=== PATIENT | male | born 1960 | race Caucasian/White ===

== ENCOUNTER → 2021-10-02 11:14 | Outpatient (CLI) | payer BC, OTHER, SELFPAY ==
[2021-10-02 12:58] LABS: COVID19 -Nasal RAPID Negative (Negative)
== END ==
PROVIDERS: Referring Provider Family Medicine Sleep Medicine; Visit Provider Family Medicine Sleep Medicine
DX: Z20.822 Contact with and (suspected) exposure to COVID-19 (principal)
CPT/HCPCS: 87635; C9803

== ENCOUNTER 2021-10-05 09:34 | Day surgery (SDC) | payer BC, OTHER, SELFPAY ==
--- NOTE | 2021-10-05 | PATH_ITS ---
[facility] Accession Number: [id number] No. of containers..02 Tissue . 01 Material submitted: . PART A: stomach - ANTRUM BIOPSY PART B: esophagus, E-G Junction - GE JUNCTION BIOPSY . 01 Diagnosis: A. Antrum, Biopsy: Acute erosive gastritis. Negative for Helicobacter organisms by immunohistochemistry. Negative for intestinal metaplasia. Negative for dysplasia or malignancy. . B. Gastroesophageal Junction, Biopsy: Squamocolumnar junctional mucosa with mild chronic inflammation. Negative for specialized intestinal metaplasia on AB/PAS stain. Negative for dysplasia and malignancy. . MRV 10/08/2021 1550 Local . 01 Electronically signed: . Cheikh Bobo MD, PhD, Pathologist NPI- [id number] . 01 Gross description: . Part A: ANTRUM BIOPSY: Received in formalin are 2 fragment(s) of lroenzo, soft tissue measuring 0.3 x 0.2 x 0.1 cm to 0.1 x 0.1 x 0.1 cm submitted entirely in 1 cassette(s) Part B: GE JUNCTION BIOPSY: Received in formalin is 1 fragment(s) of lorenzo, soft tissue measuring 0.2 x 0.1 x 0.1 cm submitted entirely in 1 cassette(s) /CPE 10/06/2021 1038 Local . 01 Microscopic: . A. An immunohistochemical stain was performed to evaluate for Helicobacter organisms and is negative. The control stain showed appropriate reactivity. . B. An AB/PAS stain is performed to evaluate for intestinal metaplasia, and is negative for goblet cells. A control stain shows appropriate reactivity. . * This test was developed and its performance characteristics determined by [facility]. It has not been cleared or approved by the U.S. Food and Drug Administration. The FDA has determined that such clearance or approval is not necessary. This test is used for clinical purposes. It should not be regarded as investigational or for research. . 01 Pathologist provided ICD-10: K29.70, K20.80 . 01 CPT . 629213, 252592, R02026, 625504 Specimen Comment: A courtesy copy of this report has been sent to [facility] Pathology Performed at: 01 [facility] Cyt[facility] [address] [place] [address], [place], [place] [id number] MD Higinio Elizondo MD Phone: [phone]
[2021-10-05 10:03] VITALS: BMI 27.1
[2021-10-05 10:22] VITALS: BP 123/81; PULSE 60; RESP 14; TEMP 36.8; O2SAT 97
[2021-10-05] MEDS: SODIUM CHLORIDE 0.9% 1,000 ML 84 ML IV (10:28)
--- NOTE | 2021-10-05 11:23 | PM.HP.1 ---
History of Present Illness History of Present Illness Date Patient Seen: 10/05/21 Time Patient Seen: 11:23 Chief complaint: SDC Narrative: I reviewed my note from September 15. No changes. Patient History Medical History Cervical fusion syndrome GERD (gastroesophageal reflux disease) HTN (hypertension) Hypercholesteremia Surgical History H/O hernia repair S/P hip replacement Family & Social History Social History: household members spouse Tobacco & Substance use: Smoking Status Former smoker alcohol intake former Substance Use Type marijuana Meds Home Medications and Allergies Home Medications Medication Instructions Recorded Confirmed Type Claritin 10 mg PO PRN PRN 10/02/21 10/05/21 History Crestor 10 mg PO DAILY 10/02/21 10/05/21 History Flexeril 10 mg PO PRN PRN 10/02/21 10/05/21 History Percocet 5 mg PO PRN PRN 10/02/21 10/05/21 History clindamycin HCl 300 mg capsule 300 mg PO PRN PRN 10/02/21 10/05/21 History tamsulosin 0.4 mg capsule 0.4 mg PO BID 10/02/21 10/05/21 History omeprazole 20 mg capsule,delayed 20 mg PO DAILY 10/05/21 10/05/21 History release Allergies Allergy/AdvReac Type Severity Reaction Status Date / Time No Known Drug Allergies Allergy Verified 10/05/21 09:57 Review of Systems Review of Systems ROS: Yes All systems reviewed with the patient and are negative except as otherwise documented Exam Vital Signs (past 8 hours): - 10/05/21 10:22 Temperature 98.2 F Pulse Rate 60 Respiratory Rate 14 Blood Pressure 123/81 Pulse Oximetry 97 Oxygen Delivery Method Room Air Const General: cooperative and comfortable Orientation: alert HENMT Head: normocephalic Ears: external ears normal Nose: external nose normal Face and sinus: normal facial exam Mouth: oral mucosae normal Eyes General: appearance normal, both eyes and all related structures Neck Neck: normal visual inspection Chest Chest: normal inspection of the chest Resp Effort & Inspection: normal respiratory effort Cardio Rate: regular rate GI Inspection: normal to inspection Skin General: no rashes or lesions noted and No jaundice Neuro General: patient alert and moves all extremities Cognition: normal cognition Speech: speech normal Extrem General: no pedal edema Psych Appearance: grossly normal Assessment & Plan Assessment & Plan narrative: 61-year-old male with refractory reflux symptoms. He is also indicated for colon cancer screening. EGD and colonoscopy are pursued today. Time Spent With Patient Critical Care time: I spent a total of [] minutes of critical care time on this patient's care today; this time is exclusive of procedural time.
--- NOTE | 2021-10-05 11:26 | PM.PREOP ---
Pre-operative Note COVID-19 COVID-19 status: Negative Result date/Date tested (Pos, Neg/Pending): 10/02/21 Criteria for continued procedure: Possibility delay results in more complex future surgery or treatment Interval Note History & Physical reviewed/Exam performed by Physician: Yes Changes to H&P: No ASA Class (for procedural sedation): II
--- NOTE | 2021-10-05 12:32 | PM.OP.EC ---
Operative Date/Time/Diagnoses Date of procedure: 10/05/21 Time of procedure: 12:33 Pre-op diagnosis: I reviewed the recent clinic notes from September 15. No changes. Post-op diagnosis: same Procedure & Clinicians Study performed: EGD with biopsies and colonoscopy Same procedure as scheduled: Yes Indications: Refractory GERD and personal history of colon polyps. Surgeon: Jl Colbert Procedure Notes SCOAP/Timeout: Done Procedure in detail: After the risks and benefits were explained, written and verbal informed consent was obtained. The patient was brought into the procedure room and placed into the left lateral decubitus position. Please see nurse solution developer notes for sedation details. The scope was introduced into the mouth through the bite block and advanced under direct visualization to the 2nd portion of the duodenum. The scope was slowly withdrawn carefully examining the mucosa for any defects or lesions. Retroflexed views were accomplished in the stomach. The stomach was decompressed, the scope was then removed from the patient who tolerated the procedure well. The patient was then turned around a digital rectal examination accomplished no significant pathology appreciated the scope was introduced into the rectum and advanced to the cecum as identified by the appendiceal orifice and ileocecal valve. The scope was slowly withdrawn to carefully examine the mucosa for any defects or lesions. Multiple direct views were made through the dentate line for exclusion of pathology the colon was decompressed scope removed the patient tolerated the procedure well. Bowel prep adequate Adult colonoscope Scope withdrawal time: 8 minutes Sedation minutes: 33 Complications: none Impression: 1. Duodenum: This was normal from the bulb through to the 2nd portion. 2. Stomach: Minimal gastropathy was appreciated and biopsies were taken from the antrum for exclusion of H pylori right. Retroflexed views of the LES were otherwise unremarkable. 3. Esophagus: The squamocolumnar junction correlated with the top of the gastric folds for the most part. The Z-line was slightly irregular at approximately 40 cm from the incisors. Because of this mild irregularity I elected to take a couple of biopsies for exclusion of specialized intestinal metaplasia. In the mid and proximal esophagus there were several small plaques white to off white in color. These suggested the possibility of Niecy overgrowth. They were brushed for cytology and submitted for MILY wet prep evaluation. Just proximal to the GE junction there was evidence of well-healed old erosive esophagitis-perhaps LA grade B. 4. Colon: No significant polyps mass lesions or inflammatory features identified throughout. Grade 1-2 internal hemorrhoids. Endoscopic diagnosis 1. Mild gastropathy 2. Irregular Z-line 3. Possible esophageal candidiasis 4. Grade 2 hemorrhoids 5. Otherwise visually unremarkable colonoscopy to cecum Post-procedure Plan for aftercare: 1. Await histopathology 2. Continue anti-reflux therapy. Consider twice a day PPI for now. 3. Follow up on clinical response in GI clinic in the next 6-8 weeks. 4. Await MILY wet prep results. Should Niecy be confirmed, a 14 day course of fluconazole would be appropriate. 5. Repeat colonoscopy 5 years. Disposition: PACU
[2021-10-05 12:46] VITALS: BP 128/78; PULSE 80; RESP 16; TEMP 36.3; O2SAT 99
[2021-10-05 13:10] VITALS: BP 152/87; PULSE 53; RESP 16; TEMP 36.6; O2SAT 98
== END 2021-10-05 13:50 | disposition home or self-care (01) ==
PROVIDERS: PCP Family Medicine; Referring Provider Internal Medicine Gastroenterology; Visit Provider Internal Medicine Gastroenterology
PROC: 0DJ08ZZ Inspection of Upper Intestinal Tract, Via Natural or Artificial Opening Endoscopic (ICD-10-PCS; CPT 43235; principal; 2021-10-05 12:00)
PROC: 0DJD8ZZ Inspection of Lower Intestinal Tract, Via Natural or Artificial Opening Endoscopic (ICD-10-PCS; CPT 45378; 2021-10-05 12:00)
DX: Z12.11 Encounter for screening for malignant neoplasm of colon (principal); Z86.010 Personal history of colon polyps; K21.9 Gastro-esophageal reflux disease without esophagitis; K31.9 Disease of stomach and duodenum, unspecified; K64.0 First degree hemorrhoids
CPT/HCPCS: 43239; 45378; 87220; J2704; J3010

== ENCOUNTER 2024-03-01 16:46 | Observation (INO) | payer MEDICARE, BC, OTHER, SELFPAY ==
[2024-03-01 17:06] VITALS: BP 167/83; PULSE 65; RESP 16; TEMP 37.1; O2SAT 99; BMI 26.2
[2024-03-01 17:55] LABS: Add Manual Diff / Slide Review NO; Basophils Absolute Auto 0 /uL (0-100); Basophils Percent Auto 0.7 % (0-2); Eosinophils Absolute Auto 100 /uL (0-450); Eosinophils Percent Auto 1.9 % (2-4); Hematocrit 36.8 % (41-53); Hemoglobin 12.9 g/dL (13.5-17.5); Lymphocytes Absolute Auto 600 /uL (1100-4500); Lymphocytes Percent Auto 10.7 % (25-40); Mean Corpuscular Hemoglobin 31.4 PG (26-34); Mean Corpuscular Volume 89.8 fL (80-100); Monocytes Absolute Auto 700 /uL (0-900); Monocytes Percent Auto 13.1 % (3-14); Neutrophils Absolute Auto 3900 /uL (1500-7000); Neutrophils Percent Auto 73.6 % (50-75); Platelet Count 215 X10^3/uL (150-400); Red Cell Distribution Width 13.5 % (11.6-14.8); White Blood Cell Count 5.3 X10^3/uL (4.5-11.0)
[2024-03-01 18:02] LABS: INR 0.9 (0.9-1.3); Prothrombin Time 10.6 SECONDS (9.4-12.5)
[2024-03-01] MEDS: SODIUM CHLORIDE 0.9% 1,000 ML 1000 ML IV (18:03)
[2024-03-01 18:05] LABS: PTT Partial Thromboplastin Tim 32 SECONDS (25.1-36.5)
[2024-03-01 18:07] LABS: Alanine Aminotransferase 15 IU/L (<50); Albumin 4.3 g/dL (3.5-5.0); Albumin Globulin Ratio 1.6 (1.0-2.8); Alkaline Phosphatase 46 U/L (38-126); Aspartate Aminotransferase 23 IU/L (17-59); BUN Creatinine Ratio 16.3 (6-22); Bilirubin Total 0.4 mg/dL (0.2-1.3); Blood Urea Nitrogen 15 mg/dL (9-20); Calcium 9.2 mg/dL (8.4-10.2); Carbon Dioxide 26 mmol/L (22-32); Chloride 102 mmol/L (98-107); Estimated Glomerular Filt Rate > 60 mL/min (>60); Globulin 2.7 g/dL (1.7-4.1); Glucose 107 mg/dL (80-110); HEMOLYSIS 20 (0-50); Lipase 91 U/L (23-300); Sodium 135 mmol/L (137-145)
[2024-03-01 18:08] LABS: Lactate (Lactic Acid) 1.6 mmol/L (0.7-2.1)
[2024-03-01 18:24] LABS: Procalcitonin 0.032 ng/mL (<0.5)
--- NOTE | 2024-03-01 21:39 | ED_ITS ---
HPI - Wound/Laceration General Chief Complaint: Wound/Laceration Stated Complaint: rt middle finger swelling, red, painful Time Seen by Provider: 03/01/24 21:39 Source: patient Mode of arrival: Ambulatory Limitations: no limitations History of Present Illness HPI narrative: 64-year-old male with history of prostate cancer with prior prostatectomy and radiation currently under surveillance, diabetes, dyslipidemia and GERD presents with complaint of infection in his finger on his right hand. Patient has been on doxycycline he has had 5 doses of doxycycline and states redness is continuing to spread up his hand and up his arm past his elbow towards his shoulder. He is starting to have some discomfort higher up in his arm as well. States the redness over the finger has gotten deeper and darker. He thought was probably a spider bite but never saw any puncture wounds cats or lacerations. Patient states he has not had issues with skin infections in the past. He denies fevers or chills, no chest pain or shortness of breath no nausea or vomiting. No diarrhea or constipation. He has had some mild headaches. He does have swelling of the 3rd digit, he can flex and extend he states it is uncomfortable but not significantly painful. He has not had any drainage. He does have full range of motion of his arm. Home medications include metformin, naltrexone, famotidine and statin. Patient notes he has had bilateral hip replacement, prostatectomy, cervical fusion, sinus surgery x4 hernia repair. No known drug allergies. No tobacco, alcohol 3 times weekly, no recreational drugs. Dr. Langford is his primary care physician. Related Data Home Medications Medication Instructions Recorded Confirmed doxycycline hyclate 100 mg capsule 100 mg PO BID 03/01/24 03/01/24 famotidine 40 mg tablet 40 mg PO DAILY 03/01/24 03/01/24 metformin 500 mg tablet 500 mg PO BID 03/01/24 03/01/24 naltrexone 4.5 mg capsule 4.5 mg PO BEDTIME 03/01/24 03/01/24 rosuvastatin 10 mg tablet 10 mg PO ONCE PM 03/01/24 03/01/24 tadalafil 10 mg tablet 10 mg PO DAILY 03/01/24 03/01/24 Allergies Allergy/AdvReac Type Severity Reaction Status Date / Time No Known Drug Allergies Allergy Verified 03/01/24 17:10 Review of Systems Review of Systems ROS Unobtainable: All systems reviewed & are unremarkable except as noted in HPI and below Patient History Medical History (Updated 03/01/24 @ 22:30 by Owen Santo MD) Cervical fusion syndrome Hypercholesteremia HTN (hypertension) GERD (gastroesophageal reflux disease) Surgical History H/O hernia repair S/P hip replacement Social History household members: spouse Smoking Status: Former smoker alcohol intake: former Smoking Status: Former smoker Substance Use Type: marijuana Exam Narrative Exam Narrative: GENERAL: Alert and oriented x three, male in mild distress. HEENT: Head normocephalic, atraumatic, EOMI, pupils reactive, face symmetric, moist mucous membranes NECK: Supple, full range of motion CARDIOVASCULAR: Regular rate and rhythm without murmurs, rubs or gallops. RESPIRATORY: Breath sounds equal bilaterally, no wheezes rales or rhonchi. ABDOMEN: Soft, nontender. Normoactive bowel sounds all 4 quadrants. No guarding or rebound, rigidity, no mass : No CVA tenderness EXTREMITIES: Normal range of motion, no clubbing. Patient has a edema of his 3rd digit with fusiform swelling, he can fully flex and extend his finger, patient does have quite a bit of erythema mid shaft of the finger there is no fluctuance or fluid collection appreciated. Fingers indurated with redness tracking over the dorsum of the hand up his arm past his elbow and almost to his shoulder. Patient has full range of motion of his arm otherwise. Patient has 2+ radial pulse. Full range of motion throughout the extremity. Cap refill less than 2 seconds all 5 fingers.. Neurovascularly intact NEUROLOGICAL: Cranial nerves II through XII grossly intact. Moving all extremities SKIN: Warm, dry, no petechiae, no rashes or lesions. Initial Vital Signs Initial Vital Signs: Vital Signs Temperature 98.7 F 03/01/24 17:06 Pulse Rate 65 03/01/24 17:06 Respiratory Rate 16 03/01/24 17:06 Blood Pressure 167/83 H 03/01/24 17:06 Pulse Oximetry 99 03/01/24 17:06 Oxygen Delivery Method Room Air 03/01/24 17:06 Course Orders Ordered: Acetaminophen (Acetaminophen 325 Mg Tablet) 650 mg PO Q6H PRN PRN Reason: Fever/Mild Pain (1-3) Atorvastatin Calcium (Atorvastatin 20 Mg Tablet) 20 mg PO BEDTIME CHRISTA Famotidine (Famotidine 20 Mg Tablet) 40 mg PO DAILY CHRISTA Clindamycin Phosphate (Cleocin) 600 mg in 50 mls @ 50 mls/hr IV Q8H CHRISTA Dextrose (D10w) 100 mls @ 1,200 mls/hr IV PRN PRN PRN Reason: Hypoglycemia Insulin Human Lispro (Insulin Lispro 100 Unit/Ml 3ml Vial) 0 unit SUBCUT ACHS CHRISTA; Protocol Lactobacillus Acidophilus (Lactobacillus Acidophilus Tablet) 1 each PO TIDWM CHRISTA Metformin HCl (Metformin Hcl 500 Mg Tablet) 500 mg PO BIDAC CHRISTA Naloxone HCl (Naloxone 0.4 Mg/Ml Vial) 0.2 mg IV Q2MIN PRN PRN Reason: Opiate Reversal Non-Formulary Medication (Naltrexone) 4.5 mg PO BEDTIME CHRISTA Oxycodone HCl (Oxycodone Ir 5 Mg Tablet) 5 mg PO Q3H PRN PRN Reason: Pain, Moderate (4-6) Oxycodone HCl (Oxycodone Ir 10 Mg Tablet) 10 mg PO Q3H PRN PRN Reason: Pain, Severe (7-10) Discontinued Medications Sodium Chloride (Normal Saline 0.9%) 1,000 mls @ 1,000 mls/hr IV BOLUS ONE Stop: 03/01/24 18:32 Last Infusion: 03/01/24 18:38 Dose: Infused Documented By: Admin: 03/01/24 18:03 Dose: 1,000 mls/hr Documented By: MPO Clindamycin Phosphate (Cleocin) 900 mg in 50 mls @ 50 mls/hr IV NOW ONE Stop: 03/01/24 22:45 Last Admin: 03/01/24 22:11 Dose: 50 mls/hr Documented By: KD Vital Signs Vital signs: Vital Signs - 8 hr 03/01/24 17:06 Temperature 98.7 F Pulse Rate 65 Respiratory Rate 16 Blood Pressure 167/83 H Pulse Oximetry 99 Oxygen Delivery Method Room Air MDM - Wound/Laceration Lab Data 03/01/24 17:43 03/01/24 17:43 Labs: Lab Results 03/01/24 Range/Units 17:43 WBC 5.3 (4.5-11.0) X10^3/uL RBC 4.10 L (4.5-5.9) X10^6/uL Hgb 12.9 L (13.5-17.5) g/dL Hct 36.8 L (41-53) % MCV 89.8 (80-100) fL MCH 31.4 (26-34) PG MCHC 35.0 (30-36) % RDW 13.5 (11.6-14.8) % Plt Count 215 (150-400) X10^3/uL Neut % (Auto) 73.6 (50-75) % Lymph % (Auto) 10.7 L (25-40) % [place] % (Auto) 13.1 (3-14) % Eos % (Auto) 1.9 L (2-4) % Baso % (Auto) 0.7 (0-2) % Neut # (Auto) 3900 (2823-3182) /uL Lymph # (Auto) 600 L (8138-7220) /uL [place] # (Auto) 700 (0-900) /uL Eos # (Auto) 100 (0-450) /uL Baso # (Auto) 0 (0-100) /uL PT 10.6 (9.4-12.5) SECONDS INR 0.9 (0.9-1.3) APTT 32 (25.1-36.5) SECONDS Sodium 135 L (137-145) mmol/L Potassium 4.0 (3.4-5.1) mmol/L Chloride 102 (98-107) mmol/L Carbon Dioxide 26 (22-32) mmol/L BUN 15 (9-20) mg/dL Creatinine 0.92 (0.66-1.25) mg/dL Estimated GFR > 60 (>60) mL/min BUN/Creatinine Ratio 16.3 (6-22) Glucose 107 (80-110) mg/dL Lactate 1.6 (0.7-2.1) mmol/L Calcium 9.2 (8.4-10.2) mg/dL Total Bilirubin 0.4 (0.2-1.3) mg/dL AST 23 (17-59) IU/L ALT 15 (<50) IU/L Alkaline Phosphatase 46 (38-126) U/L Total Protein 7.0 (6.3-8.2) g/dL Albumin 4.3 (3.5-5.0) g/dL Globulin 2.7 (1.7-4.1) g/dL Albumin/Globulin Ratio 1.6 (1.0-2.8) Lipase 91 (23-300) U/L Procalcitonin 0.032 (<0.5) ng/mL MDM Narrative Medical decision making narrative: 64-year-old male who appears to have a skin infection in his right 3rd digit which has progressed up his arm almost to his shoulder despite being on doxycycline for 2-1/2 days, has had 5 total doses. He does not appear to be septic but does appear to be failing outpatient antibiotics. Labs overall reassuring. Patient was covered with dose of clindamycin. Spoke with hospitalist, Dr. Santo, who accepts for inpatient admission. Discharge Plan Departure Patient Disposition: Admitted As Inpatient Clinical Impression: Cellulitis of finger, Cellulitis of arm, right, Failure of outpatient treatment Admit Date/Time: 03/01/24 22:09 Admit Provider: Owen Oakley
[2024-03-01] MEDS: CLINDAMYCIN 900 MG/50 ML PIGGYBACK 50 MG IV (22:11)
[2024-03-01 22:14] VITALS: BP 151/92; PULSE 54; RESP 18; O2SAT 95
--- NOTE | 2024-03-01 22:24 | P.HP_ITS ---
History of Present Illness History of Present Illness Date Patient Seen: 03/01/24 Chief complaint: rt middle finger swelling, red, painful Narrative: From the ED: 64-year-old male with history of prostate cancer with prior prostatectomy and radiation currently under surveillance, diabetes, dyslipidemia and GERD presents with complaint of infection in his finger on his right hand. Patient has been on doxycycline he has had 5 doses of doxycycline and states redness is continuing to spread up his hand and up his arm past his elbow towards his shoulder. He is starting to have some discomfort higher up in his arm as well. States the redness over the finger has gotten deeper and darker. He thought was probably a spider bite but never saw any puncture wounds cats or lacerations. Patient states he has not had issues with skin infections in the past. He denies fevers or chills, no chest pain or shortness of breath no nausea or vomiting. No diarrhea or constipation. He has had some mild headaches. He does have swelling of the 3rd digit, he can flex and extend he states it is uncomfortable but not significantly painful. He has not had any drainage. He does have full range of motion of his arm. He confirmed that he probably got bitten by a spider 3 days ago. He had no fever or chills at home. Placed in observation for an IV antibiotic. [facility] Medical History (Updated 03/01/24 @ 22:30 by Owen Santo MD) Cervical fusion syndrome Hypercholesteremia HTN (hypertension) GERD (gastroesophageal reflux disease) Surgical History H/O hernia repair S/P hip replacement Social History household members: spouse Smoking Status: Former smoker alcohol intake: former Meds Home Medications and Allergies Home Medications Medication Instructions Recorded Confirmed Type doxycycline hyclate 100 mg capsule 100 mg PO BID 03/01/24 03/01/24 History famotidine 40 mg tablet 40 mg PO DAILY 03/01/24 03/01/24 History metformin 500 mg tablet 500 mg PO BID 03/01/24 03/01/24 History naltrexone 4.5 mg capsule 4.5 mg PO BEDTIME 03/01/24 03/01/24 History rosuvastatin 10 mg tablet 10 mg PO ONCE PM 03/01/24 03/01/24 History tadalafil 10 mg tablet 10 mg PO DAILY 03/01/24 03/01/24 History Allergies Allergy/AdvReac Type Severity Reaction Status Date / Time No Known Drug Allergies Allergy Verified 03/01/24 17:10 Review of Systems Constitutional Comments: w/o fever or chills Cardiovascular Comments: w/o chest pain or palpitations Respiratory Comments: w/o cough or shortness of breath Genitourinary Comments: w/o complaints Musculoskeletal Comments: right middle finger swelling and pain spreading over the past 2-3 days upward Exam Vital Signs (past 8 hours): - 03/01/24 17:06 03/01/24 22:14 Temperature 98.7 F Pulse Rate 65 54 L Respiratory Rate 16 18 Blood Pressure 167/83 H 151/92 H Pulse Oximetry 99 95 Oxygen Delivery Method Room Air Room Air Oxygen Delivery Method Room Air Const Other: sitting in bed in no distress Resp Other: normal respiratory effort Cardio Other: RRR Skin Other: erythema art 3rd finger, spreading above the elbow Extrem Other: mild swelling of Rt arm Psych Other: lucid Objective Labs 03/01/24 17:43 03/01/24 17:43 Labs: Laboratory Results - last 24 hr 03/01/24 17:43 WBC 5.3 RBC 4.10 L Hgb 12.9 L Hct 36.8 L MCV 89.8 MCH 31.4 MCHC 35.0 RDW 13.5 Plt Count 215 Neut % (Auto) 73.6 Lymph % (Auto) 10.7 L [place] % (Auto) 13.1 Eos % (Auto) 1.9 L Baso % (Auto) 0.7 Neut # (Auto) 3900 Lymph # (Auto) 600 L [place] # (Auto) 700 Eos # (Auto) 100 Baso # (Auto) 0 PT 10.6 INR 0.9 APTT 32 Sodium 135 L Potassium 4.0 Chloride 102 Carbon Dioxide 26 BUN 15 Creatinine 0.92 Estimated GFR > 60 BUN/Creatinine Ratio 16.3 Glucose 107 Lactate 1.6 Calcium 9.2 Total Bilirubin 0.4 AST 23 ALT 15 Alkaline Phosphatase 46 Total Protein 7.0 Albumin 4.3 Globulin 2.7 Albumin/Globulin Ratio 1.6 Lipase 91 Procalcitonin 0.032 Assessment & Plan Assessment and plan (1) Cellulitis of finger: Status: Acute (2) Cellulitis of arm, right: Status: Acute (3) Failure of outpatient treatment: Status: Acute (4) Diabetes: Status: Acute (5) Hypercholesteremia: Status: Acute (6) GERD (gastroesophageal reflux disease): Status: Acute Assessment & Plan narrative: Right Finger / Arm Cellulitis - w/o evidence of an abscess - could be an insect bite with an anaerobe, could be a Strep considering how fast it got spread - started on Clindamycin in the ED, to continue, added probiotic DM - metformin, SS, CCD GERD - Pepcid HLD - statin DVT prophylaxis - SCDs Time-Based Coding :: [TOTAL MINUTES] spent with patient and on the chart (including review of chart, obtaining history, exam, reviewing outside data, placing orders, documenting exam and treatment plan, and counseling patient) on [DATE]. Quality MIPS - Admit I confirm the patient?s Advance Care Plan is present, Code status is documented, Surrogate decision maker is in patient?s record [If Yes, STOP here]: Yes MIPS - Meds 'Current medications' to include all prescriptions, [id number] products, herbals, cannabis/cannabidiol products, and vitamin/mineral/dietary (nutritional) supplements. I have utilized all available resources to obtain, update, or review the patient?s current medications. [If Yes, STOP here]: Yes
[2024-03-01 22:32] VITALS: BMI 26.2
[2024-03-01 22:35] VITALS: BP 173/108; PULSE 55; RESP 20; TEMP 36.6; O2SAT 98
--- NOTE | 2024-03-02 01:06 | PC.RNWOUND ---
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
[2024-03-02] MEDS: METFORMIN HCL 500 MG TABLET PO (06:04)
[2024-03-02] MEDS: CLINDAMYCIN 600 MG/50 ML PIGGYBACK 50 MG IV ×2 (06:04→12:38)
[2024-03-02 06:23] LABS: Add Manual Diff / Slide Review NO; Basophils Absolute Auto 0 /uL (0-100); Basophils Percent Auto 0.6 % (0-2); Eosinophils Absolute Auto 100 /uL (0-450); Eosinophils Percent Auto 2.6 % (2-4); Hematocrit 38.1 % (41-53); Hemoglobin 13.2 g/dL (13.5-17.5); Lymphocytes Absolute Auto 500 /uL (1100-4500); Lymphocytes Percent Auto 12.3 % (25-40); Mean Corpuscular HGB Conc 34.7 % (30-36); Mean Corpuscular Hemoglobin 31.3 PG (26-34); Mean Corpuscular Volume 90.2 fL (80-100); Monocytes Absolute Auto 600 /uL (0-900); Monocytes Percent Auto 12.7 % (3-14); Neutrophils Absolute Auto 3200 /uL (1500-7000); Neutrophils Percent Auto 71.8 % (50-75); Platelet Count 233 X10^3/uL (150-400); Red Blood Cell Count 4.23 X10^6/uL (4.5-5.9); Red Cell Distribution Width 13.6 % (11.6-14.8); White Blood Cell Count 4.5 X10^3/uL (4.5-11.0)
[2024-03-02 06:36] LABS: BUN Creatinine Ratio 12.9 (6-22); Blood Urea Nitrogen 11 mg/dL (9-20); Calcium 9.2 mg/dL (8.4-10.2); Carbon Dioxide 28 mmol/L (22-32); Chloride 105 mmol/L (98-107); Estimated Glomerular Filt Rate > 60 mL/min (>60); Glucose 92 mg/dL (80-110); HEMOLYSIS < 15 (0-50); Potassium 3.8 mmol/L (3.4-5.1); Sodium 136 mmol/L (137-145)
--- NOTE | 2024-03-02 06:42 | PC.NURSE ---
manager health Patients states he is not a diabetic, but dose take metformin(BID) due to [employer] recommendation for benefits with cancer treatment. Patient refuses to have any insulin or blood sugar checks, and would like to have a general diet ordered.
[2024-03-02] MEDS: LACTOBACILLUS ACIDOPHILUS TABLET 1 EACH PO ×2 (09:47→12:38)
[2024-03-02] MEDS: FAMOTIDINE 20 MG TABLET 40 MG PO (09:47)
--- NOTE | 2024-03-02 10:34 | CM.DANOTE ---
Initial DCP Assessment Note Pt is a 64 yo male, resident of [place], arrives with swollen, red finger, admitted for management of finger infection. PCP: Domi Sloan Payer: [facility] Reviewed chart, met with patient to introduce self and role. Patient lives independently with spouse. Patient reports being a cancer survivor and that he has low immunity. Patient receives Vit C infusions at home which [facility] helps to manage. Patient denies needs from this CM team currently, states appreciation for the visit. No barriers identified at this time to patient's safe discharge home w/family to assist; close outpatient f/u recommended. CM team will plan to follow clinical course closely in case any DC needs or concerns arise. OZZIE Zacarias Discharge Planning/Care Management CM Discharge Assessment Start: 03/02/24 09:30 Freq: Status: Active Protocol: Document 03/02/24 09:30 STEPHEN (Rec: 03/02/24 10:34 STEPHEN [id number]) Discharge Planning Assessment Assigned Finance Mgr OZZIE Le DPOA/Assigned Designee Name Jessica Palmer, spouse Contact Information [phone] Advance Directives? Yes Advance Directives on File No History Provided By Patient,Medical Record Prior Living Arrangements House Household Members spouse Type of transporation used prior to Drives own vehicle admit Independent with ADL's Yes Is patient alert and oriented? Yes Barriers to Discharge No Discharge Plan Home Transportation Arrangement Spouse Referrals Initiated None needed
--- NOTE | 2024-03-02 12:02 | P.DS_ITS ---
History of Present Illness History of Present Illness Date Patient Seen: 03/02/24 Time Patient Seen: 12:02 Chief complaint: rt middle finger swelling, red, painful Narrative: From the ED: 64-year-old male with history of prostate cancer with prior prostatectomy and radiation currently under surveillance, diabetes, dyslipidemia and GERD presents with complaint of infection in his finger on his right hand. Patient has been on doxycycline he has had 5 doses of doxycycline and states redness is continuing to spread up his hand and up his arm past his elbow towards his shoulder. He is starting to have some discomfort higher up in his arm as well. States the redness over the finger has gotten deeper and darker. He thought was probably a spider bite but never saw any puncture wounds cats or lacerations. Patient states he has not had issues with skin infections in the past. He denies fevers or chills, no chest pain or shortness of breath no nausea or vomiting. No diarrhea or constipation. He has had some mild headaches. He does have swelling of the 3rd digit, he can flex and extend he states it is uncomfortable but not significantly painful. He has not had any drainage. He does have full range of motion of his arm. He confirmed that he probably got bitten by a spider 3 days ago. He had no fever or chills at home. Placed in observation for an IV antibiotic. Discharge Providers Provider Date of admission: 03/01/24 22:09 Discharge Date: 03/02/24 Primary care physician: Domi Sloan MD Discharge provider: Néstor Valadez DO Summary Hospital Course Discharge Diagnosis: Right Finger / Arm Cellulitis GERD HLD Hospital Course: This is a 64 year old male admitted with worsening R finger cellulitis that had streaked up his right arm on outpatient antibiotic therapies. His antibiotics were changed to clindamycin. The following day, his R arm erythema and warmth had resolved, now only having a small amount on his R 3rd finger. He wished to go home after discussion given his marked improvement and stable vitals along with unremarkable lab evaluation. He was discharged home with another 7 days of clindamycin, advised he can stop 2 days after the swelling resolves in his finger. Time Spent with Patient Time spent: Less than 30 minutes Exam Vital Signs (past 8 hours): Oxygen Delivery Method Room Air Oxygen Flow Rate 0 Narrative Exam Narrative: Gen: No acute distress, comfortable Ext: R arm, no erythema or warmth. Small area of erythema approx 1-2 cm on the distal portion of his R 3rd digit, much improved, no induration or purulence, not over the area of the joint. Objective Labs 03/02/24 05:31 03/02/24 05:31 Labs: Laboratory Results - last 24 hr 03/01/24 03/02/24 17:43 05:31 WBC 5.3 4.5 RBC 4.10 L 4.23 L Hgb 12.9 L 13.2 L Hct 36.8 L 38.1 L MCV 89.8 90.2 MCH 31.4 31.3 MCHC 35.0 34.7 RDW 13.5 13.6 Plt Count 215 233 Neut % (Auto) 73.6 71.8 Lymph % (Auto) 10.7 L 12.3 L Greer % (Auto) 13.1 12.7 Eos % (Auto) 1.9 L 2.6 Baso % (Auto) 0.7 0.6 Neut # (Auto) 3900 3200 Lymph # (Auto) 600 L 500 L [place] # (Auto) 700 600 Eos # (Auto) 100 100 Baso # (Auto) 0 0 PT 10.6 INR 0.9 APTT 32 Sodium 135 L 136 L Potassium 4.0 3.8 Chloride 102 105 Carbon Dioxide 26 28 BUN 15 11 Creatinine 0.92 0.85 Estimated GFR > 60 > 60 BUN/Creatinine Ratio 16.3 12.9 Glucose 107 92 Lactate 1.6 Calcium 9.2 9.2 Total Bilirubin 0.4 AST 23 ALT 15 Alkaline Phosphatase 46 Total Protein 7.0 Albumin 4.3 Globulin 2.7 Albumin/Globulin Ratio 1.6 Lipase 91 Procalcitonin 0.032 [facility] Medical History (Updated 03/01/24 @ 22:30 by Owen Santo MD) Cervical fusion syndrome Hypercholesteremia HTN (hypertension) GERD (gastroesophageal reflux disease) Surgical History H/O hernia repair S/P hip replacement Social History household members: spouse Smoking Status: Former smoker alcohol intake: former Discharge Plan Discharge Plan Patient Disposition: Home Provider Discharge Comment: You were admitted to the hospital with worsening cellulitis, improved with antibiotic change. Continue antibiotics for a total of 1 week, though this may be able to be stopped early as antibiotic can be stopped 2 days after complete symptom resolution. Discharge orders & Medications Prescriptions: New clindamycin HCl 300 mg capsule 300 mg PO Q6H 7 Days Qty: 28 0RF Continued metformin 500 mg tablet 500 mg PO BID famotidine 40 mg tablet 40 mg PO DAILY rosuvastatin 10 mg tablet 10 mg PO ONCE PM tadalafil 10 mg tablet 10 mg PO DAILY naltrexone 4.5 mg Capsule 4.5 mg PO BEDTIME Discontinued doxycycline hyclate 100 mg capsule 100 mg PO BID Follow up/Referrals: Domi Sloan MD [Primary Care Provider] - Diet/Activity/Treatments Diet: Diet as Tolerated and Regular Activity: As tolerated, no restrictions Visit Report/Discharge Packet Stand Alone Forms: Patient Portal/API, Stroke Signs & Symptoms Discharge Data Primary Care Provider: Domi Sloan Attending Provider: Owen Oakley Admit Date/Time: 03/01/24 22:09 Quality VTE Deep Vein Thrombosis/Pulmonary Embolism Present on Admission: No
[2024-03-02 13:49] VITALS: BP 142/88; PULSE 64; RESP 17; TEMP 36.8; O2SAT 96
--- NOTE | 2024-03-02 15:42 | PC.NURSE ---
Patient is A&OX4, VSS, Afebrile on RA. He denies pain in RUE. +1 edema surrounding UE expanded area. He tolerates medications well. MD at bedside clears him for discharge home today with on clindamycin. He verbalizes agreement and understanding of plan. He receives last dose of IV antibiotic today after lunch and is discharged home. RN escorts patient to ED entrance to await for discharge home with all of his personal belonings at approximately 1400 pm.
== END 2024-03-02 14:00 | disposition home or self-care (01) ==
LOC: ED 22:10 → AC 03-02 07:30
PROVIDERS: Emergency Medicine; Admitting Provider Internal Medicine; Emergency Provider Emergency Medicine; PCP Family Medicine; Referring Provider Emergency Medicine; Visit Provider Internal Medicine
DX: L03.113 Cellulitis of right upper limb (principal); E11.9 Type 2 diabetes mellitus without complications; E78.00 Pure hypercholesterolemia, unspecified; K21.9 Gastro-esophageal reflux disease without esophagitis; Z79.84 Long term (current) use of oral hypoglycemic drugs
CPT/HCPCS: 36415; 80048; 80053; 83605; 83690; 84145; 85025; 85610; 85730; 87040; 96361; 96365; 96366; 99284; G0378; A9270

== ENCOUNTER 2024-07-22 02:14 | Emergency (ER) | payer MEDICARE, BC, OTHER, SELFPAY ==
[2024-07-22] VITALS (32 sets, daily range): BP systolic 104–140; BP diastolic 63–112; PULSE 59–137; RESP 10–24; TEMP 36.4; O2SAT 93–98
--- NOTE | 2024-07-22 02:20 | DI.RAD.S_ITS ---
PROCEDURE: XR CHEST 1V INDICATIONS: New onset AFib TECHNIQUE: One view of the chest was acquired. COMPARISON: [facility], CR, XR CHEST 2 VIEWS, 07/10/2024, 13:19. FINDINGS: Surgical changes and devices: None. Lungs and pleura: Lungs are clear. No pleural effusions or pneumothorax. Mediastinum: Mediastinal contours appear normal. Heart size is normal. Bones and chest wall: No suspicious bony lesions. Overlying soft tissues appear unremarkable. IMPRESSION: No acute cardiothoracic process. This report is concordant with the preliminary report. Dictated by: Sawyer Crawford M.D. on 07/22/2024 at 8:09 Approved by: Sawyer Crawford M.D. on 07/22/2024 at 8:10
--- NOTE | 2024-07-22 02:24 | EKG_ITS ---
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
[2024-07-22] MEDS: AMIODARONE 150 MG/100 ML PIGGYBACK 600 MG IV (02:28)
[2024-07-22 02:31] LABS: Add Manual Diff / Slide Review NO; Basophils Absolute Auto 100 /uL (0-100); Basophils Percent Auto 0.9 % (0-2); Eosinophils Absolute Auto 300 /uL (0-450); Eosinophils Percent Auto 4.8 % (2-4); Hematocrit 43.6 % (41-53); Hemoglobin 14.8 g/dL (13.5-17.5); Lymphocytes Absolute Auto 1000 /uL (1100-4500); Lymphocytes Percent Auto 17.8 % (25-40); Mean Corpuscular Hemoglobin 30.7 PG (26-34); Mean Corpuscular Volume 90.4 fL (80-100); Monocytes Absolute Auto 600 /uL (0-900); Neutrophils Absolute Auto 3800 /uL (1500-7000); Neutrophils Percent Auto 65.5 % (50-75); Platelet Count 284 X10^3/uL (150-400); Red Blood Cell Count 4.83 X10^6/uL (4.5-5.9); Red Cell Distribution Width 13.6 % (11.6-14.8); White Blood Cell Count 5.8 X10^3/uL (4.5-11.0)
--- NOTE | 2024-07-22 02:34 | ED.ARRPALP ---
HPI - Arrhythmia/Palpitations General Chief Complaint: Arrhythmia/Palpitations Stated Complaint: irregular heart beat Time Seen by Provider: 07/22/24 02:16 Source: patient Mode of arrival: Wheelchair Limitations: no limitations History of Present Illness HPI narrative: Patient is a 64-year-old male. History of [id number] diabetes and high cholesterol. No history of atrial fibrillation. Went to bed last night feeling normal. Woke up approximately 30 minutes prior to arrival here in the emergency department with feeling like his heart was beating fast, skipping beats. He stated that he was somewhat lightheaded. No chest pain. Had an abnormal sensation in his abdomen. Has never had anything like this in the past. Has not tried anything for symptoms prior to arrival. No lower extremity swelling. Not on anticoagulation. No history of heart disease. No history of CVA. Related Data Home Medications Medication Instructions Recorded Confirmed famotidine 40 mg tablet 40 mg PO DAILY 03/01/24 03/01/24 metformin 500 mg tablet 500 mg PO BID 03/01/24 03/01/24 naltrexone 4.5 mg capsule 4.5 mg PO BEDTIME 03/01/24 03/01/24 rosuvastatin 10 mg tablet 10 mg PO ONCE PM 03/01/24 03/01/24 tadalafil 10 mg tablet 10 mg PO DAILY 03/01/24 03/01/24 oxybutynin chloride 5 mg tablet 5 mg PO 1XD 07/22/24 07/22/24 Previous Rx's Medication Instructions Recorded apixaban 5 mg tablet (Eliquis) 5 mg PO BID 30 days #60 tabs 07/22/24 Allergies Allergy/AdvReac Type Severity Reaction Status Date / Time No Known Drug Allergies Allergy Verified 03/01/24 17:10 Review of Systems Review of Systems ROS Unobtainable: All systems reviewed & are unremarkable except as noted in HPI and below Patient History Medical History Cervical fusion syndrome Hypercholesteremia HTN (hypertension) GERD (gastroesophageal reflux disease) Surgical History H/O hernia repair S/P hip replacement Social History household members: spouse Smoking Status: Former smoker alcohol intake: former Smoking Status: Former smoker alcohol intake frequency: a few times a week Substance Use Type: marijuana Exam Initial Vital Signs Initial Vital Signs: Vital Signs Temperature 97.5 F L 07/22/24 02:20 Pulse Rate 113 H 07/22/24 02:20 Respiratory Rate 16 07/22/24 02:20 Blood Pressure 140/86 07/22/24 02:20 Pulse Oximetry 97 07/22/24 02:20 Oxygen Delivery Method Room Air 07/22/24 02:20 Const General: cooperative, comfortable and No ill appearing HENMT Head: normal to inspection and normocephalic Resp Effort & Inspection: normal respiratory effort Auscultation: clear to auscultation bilaterally Cardio Rate: tachycardic Rhythm: abnormal rhythm GI Inspection: normal to inspection Skin General: no rashes or lesions noted Neuro General: patient alert, patient awake, patient oriented x3 and does not move all extremities Extrem General: No edema Procedures Cardioversion Consent Signed: Yes Indication: Atrial fibrillation Stability: Stable Number of attempts (shocks): 1 Joules used: 120 Cardiac rhythm post-cardioversion: Sinus rhythm Procedural Sedation Consent signed: Yes Time out performed: Yes Indication: cardioversion ASA Class: II Mallampati Airway Classification: Class II Preparation: cardiac cath technologist applied, pulse oximeter, capnometry used, supplemental O2 applied, suction/airway equipment at bedside and IV secured Fentanyl: IV Fentanyl dose (mcg): 12 IV Propofol dose (mg): 50 Intraservice time/total sedation time (min): 10 ED Sedation Level: Moderate (Concious) Patient Tolerated Procedure: No complications Complications: none Course Orders Ordered: ED Orders 07/22/24 02:16 EKG-12 Lead Stat 07/22/24 02:20 XR chest 1V Stat 07/22/24 02:22 Complete Blood Count AUTO DIFF Stat Comprehensive Metabolic Panel Stat Lipase Stat Magnesium Stat PTT Partial Thromboplastin Gregory Stat Prothrombin Time INR Stat Thyroid Stimulating Hormone Stat Troponin & CK Cardiac Panel Stat 07/22/24 03:47 EKG-12 Lead Stat 07/22/24 03:48 EKG-12 Lead Stat Discontinued Medications Apixaban (Apixaban 5 Mg Tablet) 5 mg PO NOW ONE Stop: 07/22/24 03:50 Last Admin: 07/22/24 04:06 Dose: 5 mg Documented By: [facility] Fentanyl (Fentanyl 100 Mcg/2 Ml Inj) 12.5 mcg IV NOW ONE Stop: 07/22/24 03:26 Last Admin: 07/22/24 03:43 Dose: 12.5 mcg Documented By: BENY Amiodarone HCl/Dextrose (Nexterone) 150 mg in 100 mls @ 600 mls/hr IV NOW ONE; Protocol Stop: 07/22/24 02:31 Last Infusion: 07/22/24 02:45 Dose: Infused Documented By: Admin: 07/22/24 02:28 Dose: 600 mls/hr Documented By: BENY Propofol (Propofol 200 Mg/20 Ml Vial) 100 mg IV NOW ONE Stop: 07/22/24 03:26 Last Admin: 07/22/24 03:43 Dose: 50 mg Documented By: BENY Vital Signs Vital signs: Vital Signs - 8 hr 07/22/24 02:20 07/22/24 02:30 07/22/24 02:30 Temperature 97.5 F L Pulse Rate 113 H 137 H Respiratory Rate 16 15 Blood Pressure 140/86 132/72 Pulse Oximetry 97 98 Oxygen Delivery Method Room Air Oxygen Flow Rate 07/22/24 02:35 07/22/24 02:35 07/22/24 02:40 Temperature Pulse Rate 110 H 124 H Respiratory Rate 10 L 14 Blood Pressure 114/72 Pulse Oximetry 96 93 Oxygen Delivery Method Room Air Oxygen Flow Rate 07/22/24 02:45 07/22/24 02:50 07/22/24 02:55 Temperature Pulse Rate 105 H 94 H 131 H Respiratory Rate 20 17 15 Blood Pressure Pulse Oximetry 96 95 96 Oxygen Delivery Method Oxygen Flow Rate 07/22/24 03:00 07/22/24 03:05 07/22/24 03:09 Temperature Pulse Rate 93 H 103 H 105 H Respiratory Rate 11 L 15 14 Blood Pressure Pulse Oximetry 96 96 95 Oxygen Delivery Method Oxygen Flow Rate 07/22/24 03:09 07/22/24 03:10 07/22/24 03:10 Temperature Pulse Rate 96 H 95 H Respiratory Rate 12 23 Blood Pressure 122/64 122/64 Pulse Oximetry 95 97 Oxygen Delivery Method Room Air Oxygen Flow Rate 07/22/24 03:15 07/22/24 03:15 07/22/24 03:20 Temperature Pulse Rate 90 105 H Respiratory Rate 24 13 Blood Pressure 104/63 Pulse Oximetry 96 97 Oxygen Delivery Method Oxygen Flow Rate 07/22/24 03:25 07/22/24 03:30 07/22/24 03:30 Temperature Pulse Rate 106 H 123 H Respiratory Rate 13 15 Blood Pressure 108/70 Pulse Oximetry 97 96 Oxygen Delivery Method Oxygen Flow Rate 07/22/24 03:32 07/22/24 03:32 07/22/24 03:34 Temperature Pulse Rate 112 H 66 Respiratory Rate 11 L 16 Blood Pressure 115/86 115/72 Pulse Oximetry 96 95 Oxygen Delivery Method Oxygen Flow Rate 07/22/24 03:35 07/22/24 03:35 07/22/24 03:40 Temperature Pulse Rate 104 H 108 H Respiratory Rate 11 L Blood Pressure 114/76 Pulse Oximetry 96 97 Oxygen Delivery Method Oxygen Flow Rate 07/22/24 03:40 07/22/24 03:45 07/22/24 03:46 Temperature Pulse Rate 126 H 113 H Respiratory Rate 11 L 12 Blood Pressure 111/79 Pulse Oximetry 98 95 Oxygen Delivery Method Oxygen Flow Rate 07/22/24 03:46 07/22/24 03:50 07/22/24 03:50 Temperature Pulse Rate 69 Respiratory Rate 12 Blood Pressure 137/112 H 116/71 Pulse Oximetry 95 Oxygen Delivery Method Nasal Cannula Oxygen Flow Rate 2 07/22/24 03:55 07/22/24 03:55 07/22/24 04:00 Temperature Pulse Rate 68 66 Respiratory Rate 11 L 21 Blood Pressure 115/72 Pulse Oximetry 95 95 Oxygen Delivery Method Room Air Oxygen Flow Rate 07/22/24 04:00 07/22/24 04:05 07/22/24 04:05 Temperature Pulse Rate 64 Respiratory Rate 19 Blood Pressure 108/73 115/77 Pulse Oximetry 95 Oxygen Delivery Method Oxygen Flow Rate 07/22/24 04:10 Temperature Pulse Rate 65 Respiratory Rate 22 Blood Pressure Pulse Oximetry 96 Oxygen Delivery Method Room Air Oxygen Flow Rate MDM - Arrhythmia/Palpitations Lab Data Attestation: I reviewed the patient's lab results. 07/22/24 02:22 07/22/24 02:22 Labs: Lab Results 07/22/24 Range/Units 02:22 WBC 5.8 (4.5-11.0) X10^3/uL RBC 4.83 (4.5-5.9) X10^6/uL Hgb 14.8 (13.5-17.5) g/dL Hct 43.6 (41-53) % MCV 90.4 (80-100) fL MCH 30.7 (26-34) PG MCHC 34.0 (30-36) % RDW 13.6 (11.6-14.8) % Plt Count 284 (150-400) X10^3/uL Neut % (Auto) 65.5 (50-75) % Lymph % (Auto) 17.8 L (25-40) % [place] % (Auto) 11.0 (3-14) % Eos % (Auto) 4.8 H (2-4) % Baso % (Auto) 0.9 (0-2) % Neut # (Auto) 3800 (6607-5281) /uL Lymph # (Auto) 1000 L (2213-7881) /uL [place] # (Auto) 600 (0-900) /uL Eos # (Auto) 300 (0-450) /uL Baso # (Auto) 100 (0-100) /uL PT 9.8 (9.4-12.5) SECONDS INR 0.9 (0.9-1.3) APTT 33 (25.1-36.5) SECONDS Sodium 136 L (137-145) mmol/L Potassium 3.6 (3.4-5.1) mmol/L Chloride 101 (98-107) mmol/L Carbon Dioxide 28 (22-32) mmol/L BUN 15 (9-20) mg/dL Creatinine 0.96 (0.66-1.25) mg/dL Estimated GFR > 60 (>60) mL/min BUN/Creatinine Ratio 15.6 (6-22) Glucose 115 H (80-110) mg/dL Calcium 9.6 (8.4-10.2) mg/dL Magnesium 1.8 (1.6-2.3) mg/dL Total Bilirubin 0.4 (0.2-1.3) mg/dL AST 26 (17-59) IU/L ALT 18 (<50) IU/L Alkaline Phosphatase 49 (38-126) U/L Total Creatine Kinase 79 (55-170) U/L Troponin I < 0.012 (0.01-0.034) ng/mL Total Protein 7.0 (6.3-8.2) g/dL Albumin 4.3 (3.5-5.0) g/dL Globulin 2.7 (1.7-4.1) g/dL Albumin/Globulin Ratio 1.6 (1.0-2.8) Lipase 73 (23-300) U/L Imaging Data Chest x-ray: Radiologist's Impresson: No acute cardiopulmonary abnormalities identified ECG Data Attestation: I personally reviewed and interpreted this ECG as follows: Interpretation: Presentation EKG Atrial fibrillation Ventricular rate 94 Normal axis Normal QRS Normal QTC No ST T wave changes Post cardioversion EKG Sinus rhythm Ventricular rate is 70 Normal axis Normal QRS Normal QTC No ST T wave changes MDM Narrative Medical decision making narrative: Patient had an onset of symptoms less than 2 hours prior to arrival here in the emergency department. He was not on anticoagulation. Is in atrial fibrillation. No history of atrial fibrillation. Initially attempted amiodarone without success in conversion however his heart rate now is much better. Had a discussion with him regarding the risks and benefits of cardioversion. We discussed atrial fibrillation. After this discussion we opted for the cardioversion. He was sedated and cardioversion with success. Will place the patient on Eliquis for the next 30 days. Troponin is negative. Chest x-ray is unremarkable. Labs unremarkable. Recommended the patient contact his primary care doctor for follow-up to discuss further evaluation and potential referral to see Cardiology. He was given return precautions and follow-up instructions. He expressed understanding and agreement with plan. Discharge Plan Departure Patient Disposition: Home Clinical Impression: Atrial fibrillation Instructions: DI for Cardioversion, DI for Atrial Fibrillation Activity Restrictions/Additional Instructions: Continue to take all of your medications as directed. A new medication for a medicine called Eliquis/apixaban was sent to [facility]. Please start taking this as directed. I recommend that you look into the ?Eliquis co-pay card? to help offset the cost of this medication which potentially can be expensive. I recommend that you contact your primary care doctor for a follow-up. Return to the emergency department for new or worsening symptoms. Prescriptions: New Eliquis 5 mg tablet 5 mg PO BID 30 Days Qty: 60 0RF No Action metformin 500 mg tablet 500 mg PO BID famotidine 40 mg tablet 40 mg PO DAILY rosuvastatin 10 mg tablet 10 mg PO ONCE PM tadalafil 10 mg tablet 10 mg PO DAILY naltrexone 4.5 mg Capsule 4.5 mg PO BEDTIME oxybutynin chloride 5 mg Tablet 5 mg PO 1XD Referrals: Domi Sloan MD [Primary Care Provider] - Stand Alone Forms: Patient Portal/API/Survey
[2024-07-22 02:41] LABS: Alanine Aminotransferase 18 IU/L (<50); Albumin 4.3 g/dL (3.5-5.0); Albumin Globulin Ratio 1.6 (1.0-2.8); Alkaline Phosphatase 49 U/L (38-126); Aspartate Aminotransferase 26 IU/L (17-59); BUN Creatinine Ratio 15.6 (6-22); Bilirubin Total 0.4 mg/dL (0.2-1.3); Blood Urea Nitrogen 15 mg/dL (9-20); Calcium 9.6 mg/dL (8.4-10.2); Carbon Dioxide 28 mmol/L (22-32); Chloride 101 mmol/L (98-107); Creatine Kinase 79 U/L (55-170); Estimated Glomerular Filt Rate > 60 mL/min (>60); Globulin 2.7 g/dL (1.7-4.1); Glucose 115 mg/dL (80-110); HEMOLYSIS < 15 (0-50); Lipase 73 U/L (23-300); Magnesium 1.8 mg/dL (1.6-2.3); Potassium 3.6 mmol/L (3.4-5.1); Sodium 136 mmol/L (137-145)
[2024-07-22 02:53] LABS: Troponin I < 0.012 ng/mL (0.01-0.034)
[2024-07-22 03:25] LABS: INR 0.9 (0.9-1.3); Prothrombin Time 9.8 SECONDS (9.4-12.5)
[2024-07-22 03:28] LABS: PTT Partial Thromboplastin Tim 33 SECONDS (25.1-36.5)
[2024-07-22 03:42] LABS: Thyroid Stimulating Hormone 3.43 uIU/mL (0.47-4.68)
[2024-07-22] MEDS: fentaNYL 100 MCG/2 ML INJ 12.5 MCG IV (03:43)
[2024-07-22] MEDS: propofoL 200 MG/20 ML VIAL 100 MG IV (03:43)
--- NOTE | 2024-07-22 03:47 | EKG_ITS ---
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
--- NOTE | 2024-07-22 03:55 | PC.NURSE ---
Cardioversion completed by Dr Hawkins with Tati RN, Luz RN, and Ashish RT at bedside. remained at bedside. Pt maintained airway with coaching and mechanical adjustment by Dr. Hawkins. 02 above 90% during prodedure on 2 L via NC. improved to 96% with movement of airway and coaching. Vital signs remained stable. Pt arroused from sedation and in good spirits. Reports doing well, denies pain. HR 68 NSR, verified with EKG.
[2024-07-22] MEDS: APIXABAN 5 MG TABLET PO (04:06)
== END 2024-07-22 04:50 | disposition home or self-care (01) ==
PROVIDERS: Emergency Provider Emergency Medicine; PCP Family Medicine
DX: I48.91 Unspecified atrial fibrillation (principal); I45.10 Unspecified right bundle-branch block
CPT/HCPCS: 36415; 71045; 80053; 82550; 83690; 83735; 84443; 84484; 85025; 85610; 85730; 92960; 93005; 96365; 99152; 99285; 99291; 99292; J0282; J2704; J3010

== ENCOUNTER 2024-07-28 16:05 | Emergency (ER) | payer MEDICARE, BC, OTHER, SELFPAY ==
[2024-07-28] VITALS (9 sets, daily range): BP systolic 143–181; BP diastolic 87–99; PULSE 50–94; RESP 14–28; TEMP 36.8; O2SAT 94–99; BMI 27.6
--- NOTE | 2024-07-28 16:17 | ED.GENADULT ---
HPI - General Adult General Chief complaint: Chest Pain Stated complaint: tightness in chest, fatigued Time Seen by Provider: 07/28/24 16:16 History of Present Illness HPI narrative: 64-year-old gentleman with a history of diabetes, hyperlipidemia, recently seen for new AFib cardioverted now on apixaban, currently on antibiotics for a small facial abscess, history of prostate cancer with last radiation almost a year ago comes in complaining of chest pain/heaviness for the last 24 hours, feels that his belly is uncomfortable with increasing gas today, increasing fatigue for the last 3 weeks notes that he has been on antibiotics 3 times since February with 1 hospital admission recently for a finger cellulitis. Generally he just feels unwell and comes in for further evaluation Related Data Home Medications Medication Instructions Recorded Confirmed metformin 500 mg tablet 500 mg PO BID 03/01/24 08/13/24 naltrexone 4.5 mg capsule 4.5 mg PO BEDTIME 03/01/24 08/13/24 rosuvastatin 10 mg tablet 10 mg PO ONCE PM 03/01/24 08/13/24 Previous Rx's Medication Instructions Recorded dabigatran etexilate 150 mg capsule 150 mg PO BID #60 caps 08/13/24 famotidine 40 mg tablet 40 mg PO BID #60 tabs 08/13/24 Allergies Allergy/AdvReac Type Severity Reaction Status Date / Time No Known Drug Allergies Allergy Verified 03/01/24 17:10 Review of Systems Review of Systems Narrative: Pertinent positive and negative findings as per HPI Patient History Medical History Atrial fibrillation Diabetes Cervical fusion syndrome Hypercholesteremia HTN (hypertension) GERD (gastroesophageal reflux disease) Surgical History H/O hernia repair S/P hip replacement Social History household members: spouse Smoking Status: Former smoker alcohol intake: former Smoking Status: Former smoker alcohol intake frequency: a few times a week Exam Initial Vital Signs Initial Vital Signs: Vital Signs Pulse Rate 60 07/28/24 16:11 Respiratory Rate 23 07/28/24 16:11 Pulse Oximetry 95 07/28/24 16:11 General: Fatigued appearing, flat affect nontoxic HEENT: Moist mucous membranes, normal sclera with reactive pupils, Neck: No JVD, supple Respiratory: Lungs are clear to auscultation, no wheezing no rales no rhonchi. Full and symmetrical air movement Cardiac: Regular rate and rhythm no murmurs , PMI is not displaced Abdomen: Soft, nontender, good bowel tones, no flank pain Skin: Warm and dry, no rashes, no diaphoresis Neurologic: Grossly neurologically intact with no obvious asymmetries or abnormalities Extremities: No trauma, well perfused, no edema Psych: Cooperative, appropriate insight and affect Course Orders Ordered: ED Orders 07/28/24 16:15 Complete Blood Count AUTO DIFF Stat Comprehensive Metabolic Panel Stat Lipase Stat Magnesium Stat NT-proBNP (BNP-Adult 18+) Stat PTT Partial Thromboplastin Gregory Stat Prothrombin Time INR Stat Troponin & CK Cardiac Panel Stat 07/28/24 16:20 XR chest 1V Stat EKG-12 Lead Stat 07/28/24 16:50 CT chest w con Stat Vital Signs Vital signs: Vital Signs - 8 hr 07/28/24 16:11 07/28/24 16:12 07/28/24 16:12 Temperature Pulse Rate 60 61 Respiratory Rate 23 28 H Blood Pressure 181/99 H Pulse Oximetry 95 97 Oxygen Delivery Method 07/28/24 16:21 07/28/24 16:30 07/28/24 16:30 Temperature 98.2 F Pulse Rate 53 L 58 L Respiratory Rate 20 14 Blood Pressure 181/91 H 164/90 H Pulse Oximetry 99 98 Oxygen Delivery Method Room Air Medical Decision Making Lab Data 07/28/24 16:15 07/28/24 16:15 Labs: Lab Results 07/28/24 Range/Units 16:15 WBC 5.5 (4.5-11.0) X10^3/uL RBC 4.55 (4.5-5.9) X10^6/uL Hgb 14.2 (13.5-17.5) g/dL Hct 41.5 (41-53) % MCV 91.3 (80-100) fL MCH 31.3 (26-34) PG MCHC 34.3 (30-36) % RDW 13.4 (11.6-14.8) % Plt Count 242 (150-400) X10^3/uL Neut % (Auto) 68.9 (50-75) % Lymph % (Auto) 12.0 L (25-40) % Esmeralda % (Auto) 15.0 H (3-14) % Eos % (Auto) 3.5 (2-4) % Baso % (Auto) 0.6 (0-2) % Neut # (Auto) 3800 (3128-8534) /uL Lymph # (Auto) 700 L (4031-3942) /uL Esmeralda # (Auto) 800 (0-900) /uL Eos # (Auto) 200 (0-450) /uL Baso # (Auto) 0 (0-100) /uL PT 12.2 (9.4-12.5) SECONDS INR 1.1 (0.9-1.3) APTT 38 H (25.1-36.5) SECONDS Sodium 130 L (137-145) mmol/L Potassium 3.7 (3.4-5.1) mmol/L Chloride 98 (98-107) mmol/L Carbon Dioxide 29 (22-32) mmol/L BUN 14 (9-20) mg/dL Creatinine 1.22 (0.66-1.25) mg/dL Estimated GFR > 60 (>60) mL/min BUN/Creatinine Ratio 11.5 (6-22) Glucose 91 (80-110) mg/dL Calcium 9.6 (8.4-10.2) mg/dL Magnesium 2.0 (1.6-2.3) mg/dL Total Bilirubin 0.5 (0.2-1.3) mg/dL AST 26 (17-59) IU/L ALT 15 (<50) IU/L Alkaline Phosphatase 43 (38-126) U/L Total Creatine Kinase 78 (55-170) U/L Troponin I < 0.012 (0.01-0.034) ng/mL NT-Pro-B Natriuret Pep 142 H (<125) pg/mL Total Protein 7.5 (6.3-8.2) g/dL Albumin 4.4 (3.5-5.0) g/dL Globulin 3.1 (1.7-4.1) g/dL Albumin/Globulin Ratio 1.4 (1.0-2.8) Lipase 66 (23-300) U/L MDM Narrative Medical decision making narrative: CC: Chest tightness for 24 hours, increasing fatigue for 3 weeks and dyspnea even at rest Complicating co-morbidities: Paroxysmal atrial fibrillation post electrical cardioversion and newly started Eliquis last week, currently on antibiotics for facial infection hospital admission this year for cellulitis of the finger, antibiotics recently for walking pneumonia, recently completed prostate cancer radiation course earlier this year Data collected from: patient, Medical records reviewed: July 22 ER visit with atrial fibrillation reviewed, March 02 discharge summary after arm cellulitis reviewed Differential considered: Acute coronary syndrome, pulmonary embolism, cardiomyopathy post viral, depression Exam documented above, pertinent findings include: Patient's exam is flat, he is on engaged, clearly fatigue, physical exam is relatively benign Lab Test results independently reviewed as above. Pertinent findings: CBC is reassuring Chemistries are notable for sodium 130, creatinine slightly increased from 0.96-1.2. Remainder of chemistries are equally reassuring Troponin today is undetectable ProBNP is minimally elevated at 140 TSH on July 22 is appropriate at 3.4 Independently reviewed EKG: Sinus bradycardia at a rate of 59, no ischemic changes Imaging studies independently reviewed: Chest x-ray has some questionable right-sided perihilar fullness Discussion: 64-year-old gentleman with a medically complicated your complaining of chest pain and heaviness for the last 24 hours and general malaise with increased fatigue or last number of weeks. Workup is actually quite reassuring. He remains in sinus rhythm, no signs of acute coronary disease, congestive heart failure, pulmonary embolism, persistent pneumonia, occult pulmonary mass or additional reason for his dyspnea at rest. In the ER he did have a relative bradycardia, sinus, at rest. As low as 50 with movement was back up to 60s. He is follow up with his rubber compounder on Tuesday. We did broach the possibility of clinical depression as an underlying cause or at least contributor to his fatigue and malaise. He will bring this up with his primary care physician at this point there was no indication for further studies or hospitalization and he is safe to go home Discharge Plan Departure Patient Disposition: Home Clinical Impression: Acute dyspnea, Chest tightness Activity Restrictions/Additional Instructions: Thank you for coming in today Your workup in the ER today was actually very reassuring. Your chest x-ray was normal, I did not see any signs to suggest cardiomyopathy, fluid collecting around her lungs or around your heart, heart attack, recurrent atrial fibrillation, persistent lung infection. Your blood work is reassuring, including a normal thyroid test earlier this week. There was no anemia, no signs of bacterial infection. There was no signs of anemia, congestive heart failure or alternate explanations for your symptoms I do not have a complete explanation for your symptoms today but I also do not think that you have a life-threatening problem that would require hospitalization. Please do keep your rubber compounder appointment next Tuesday. You mentioned that the sinus bradycardia in the 50s that we have been seeing in the emergency department does seem abnormal for you. Please bring that up with a rubber compounder. It would also suggest that you schedule an appointment with your primary care physician. If you find that you are getting worse or develop any new symptoms, please feel free to return to the emergency department for further evaluation. Prescriptions: No Action metformin 500 mg tablet 500 mg PO BID rosuvastatin 10 mg tablet 10 mg PO ONCE PM naltrexone 4.5 mg Capsule 4.5 mg PO BEDTIME dabigatran etexilate 150 mg capsule 150 mg PO BID Qty: 60 2RF famotidine 40 mg tablet 40 mg PO BID Qty: 60 2RF Referrals: Domi Sloan MD [Primary Care Provider] - Stand Alone Forms: Patient Portal/API/Survey
--- NOTE | 2024-07-28 16:20 | DI.RAD.S_ITS ---
PROCEDURE: XR CHEST 1V INDICATIONS: chest pain TECHNIQUE: One view of the chest was acquired. COMPARISON: [facility], CR, XR CHEST 1V, 07/22/2024, 2:17. FINDINGS: Surgical changes and devices: None. Lungs and pleura: Lungs are clear. No pleural effusions or pneumothorax. Mediastinum: Mediastinal contours appear normal. Heart size is normal. Bones and chest wall: No suspicious bony lesions. Overlying soft tissues appear unremarkable. IMPRESSION: No acute cardiopulmonary abnormality is seen. Approved by: Ellis Henriquez M.D. on 07/28/2024 at 16:42
[2024-07-28 16:25] LABS: Add Manual Diff / Slide Review NO; Basophils Absolute Auto 0 /uL (0-100); Basophils Percent Auto 0.6 % (0-2); Eosinophils Absolute Auto 200 /uL (0-450); Eosinophils Percent Auto 3.5 % (2-4); Hematocrit 41.5 % (41-53); Hemoglobin 14.2 g/dL (13.5-17.5); Lymphocytes Absolute Auto 700 /uL (1100-4500); Mean Corpuscular HGB Conc 34.3 % (30-36); Mean Corpuscular Hemoglobin 31.3 PG (26-34); Mean Corpuscular Volume 91.3 fL (80-100); Monocytes Absolute Auto 800 /uL (0-900); Neutrophils Absolute Auto 3800 /uL (1500-7000); Neutrophils Percent Auto 68.9 % (50-75); Platelet Count 242 X10^3/uL (150-400); Red Blood Cell Count 4.55 X10^6/uL (4.5-5.9); Red Cell Distribution Width 13.4 % (11.6-14.8); White Blood Cell Count 5.5 X10^3/uL (4.5-11.0)
[2024-07-28 16:37] LABS: Alanine Aminotransferase 15 IU/L (<50); Albumin 4.4 g/dL (3.5-5.0); Albumin Globulin Ratio 1.4 (1.0-2.8); Alkaline Phosphatase 43 U/L (38-126); Aspartate Aminotransferase 26 IU/L (17-59); BUN Creatinine Ratio 11.5 (6-22); Bilirubin Total 0.5 mg/dL (0.2-1.3); Blood Urea Nitrogen 14 mg/dL (9-20); Calcium 9.6 mg/dL (8.4-10.2); Carbon Dioxide 29 mmol/L (22-32); Chloride 98 mmol/L (98-107); Creatine Kinase 78 U/L (55-170); Estimated Glomerular Filt Rate > 60 mL/min (>60); Globulin 3.1 g/dL (1.7-4.1); Glucose 91 mg/dL (80-110); HEMOLYSIS < 15 (0-50); Lipase 66 U/L (23-300); Potassium 3.7 mmol/L (3.4-5.1); Sodium 130 mmol/L (137-145); Total Protein 7.5 g/dL (6.3-8.2)
[2024-07-28 16:48] LABS: NT-proBNP (BNP-Adult 18+) 142 pg/mL (<125); Troponin I < 0.012 ng/mL (0.01-0.034)
[2024-07-28 16:49] LABS: INR 1.1 (0.9-1.3); Prothrombin Time 12.2 SECONDS (9.4-12.5)
--- NOTE | 2024-07-28 16:50 | DI.CT.S_ITS ---
PROCEDURE: CT CHEST W CON INDICATIONS: persistent dyspnea TECHNIQUE: After the administration of intravenous contrast, 5 mm thick sections acquired from the pulmonary apices to the posterior costophrenic angles. 1 mm axial lung, 5 mm thick coronal and sagittal reformats and 7 mm axial MIP were acquired. For radiation dose reduction, the following was used: automated exposure control, adjustment of mA and/or kV according to patient size. COMPARISON: None. FINDINGS: Cardiovascular and Mediastinum: Heart size is normal. No evidence of thoracic aortic aneurysm. Pulmonary vasculature is unremarkable. No hiatal hernia. Thyroid gland unremarkable. Lungs and Pleural Spaces: The lung hou are clear without nodule, infiltrate or interstitial prominence. Pleural spaces show no effusion or pneumothorax. Lymph Nodes: No mediastinal, hilar or axillary adenopathy. Musculoskeletal: No evidence of rib fracture. Thoracic spine unremarkable. Chest wall and sternum intact. No lytic or blastic lesions. Upper abdomen: Visualized portions of the liver, spleen and kidneys are unremarkable. IMPRESSION: Unremarkable CT of the chest Approved by: Ellis Henriquez M.D. on 07/28/2024 at 18:15
[2024-07-28 16:52] LABS: PTT Partial Thromboplastin Tim 38 SECONDS (25.1-36.5)
== END 2024-07-28 19:29 | disposition home or self-care (01) ==
PROVIDERS: Emergency Medicine; Emergency Provider Student in an Organized Health Care Education/Training Program; PCP Family Medicine
DX: R06.00 Dyspnea, unspecified (principal); R07.89 Other chest pain; Z79.01 Long term (current) use of anticoagulants
CPT/HCPCS: 36415; 71045; 71260; 80053; 82550; 83690; 83735; 83880; 84484; 85025; 85610; 85730; 99284

== ENCOUNTER 2024-08-12 20:27 | Observation (INO) | payer MEDICARE, BC, OTHER, SELFPAY ==
[2024-08-12] VITALS (9 sets, daily range): BP systolic 128–152; BP diastolic 76–88; PULSE 53–61; RESP 13–21; TEMP 37; O2SAT 95–100; BMI 27.2
--- NOTE | 2024-08-12 20:37 | EKG_ITS ---
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
--- NOTE | 2024-08-12 20:49 | DI.RAD.S_ITS ---
PROCEDURE: XR CHEST 1V INDICATIONS: chest pain TECHNIQUE: One view of the chest was acquired. COMPARISON: [facility], CR, XR CHEST 1V, 07/28/2024, 16:32. FINDINGS: Surgical changes and devices: None. Lungs and pleura: Lungs are clear. No pleural effusions or pneumothorax. Mediastinum: Mediastinal contours appear normal. Heart size is normal. Bones and chest wall: No suspicious bony lesions. Overlying soft tissues appear unremarkable. IMPRESSION: No acute pulmonary process. Dictated by: Gaviota Dai M.D. on 08/12/2024 at 21:20 Approved by: Gaviota Dai M.D. on 08/12/2024 at 21:20
[2024-08-12 21:08] LABS: Add Manual Diff / Slide Review NO; Basophils Absolute Auto 100 /uL (0-100); Basophils Percent Auto 1.2 % (0-2); Eosinophils Absolute Auto 200 /uL (0-450); Eosinophils Percent Auto 4.1 % (2-4); Hemoglobin 13.6 g/dL (13.5-17.5); Lymphocytes Absolute Auto 800 /uL (1100-4500); Lymphocytes Percent Auto 17.1 % (25-40); Mean Corpuscular HGB Conc 34.1 % (30-36); Mean Corpuscular Hemoglobin 30.8 PG (26-34); Mean Corpuscular Volume 90.4 fL (80-100); Monocytes Absolute Auto 500 /uL (0-900); Monocytes Percent Auto 11.1 % (3-14); Neutrophils Absolute Auto 3100 /uL (1500-7000); Neutrophils Percent Auto 66.5 % (50-75); Platelet Count 261 X10^3/uL (150-400); Red Blood Cell Count 4.42 X10^6/uL (4.5-5.9); Red Cell Distribution Width 13.9 % (11.6-14.8); White Blood Cell Count 4.6 X10^3/uL (4.5-11.0)
[2024-08-12 21:10] LABS: INR 1.1 (0.9-1.3); Prothrombin Time 12.9 SECONDS (9.4-12.5)
[2024-08-12 21:13] LABS: Alanine Aminotransferase 19 IU/L (<50); Albumin 4.1 g/dL (3.5-5.0); Albumin Globulin Ratio 1.4 (1.0-2.8); Alkaline Phosphatase 43 U/L (38-126); Aspartate Aminotransferase 28 IU/L (17-59); BUN Creatinine Ratio 13.5 (6-22); Bilirubin Total 0.4 mg/dL (0.2-1.3); Blood Urea Nitrogen 13 mg/dL (9-20); Calcium 9.7 mg/dL (8.4-10.2); Carbon Dioxide 26 mmol/L (22-32); Chloride 101 mmol/L (98-107); Creatine Kinase 83 U/L (55-170); Estimated Glomerular Filt Rate > 60 mL/min (>60); Glucose 105 mg/dL (80-110); HEMOLYSIS < 15 (0-50); Lipase 81 U/L (23-300); Magnesium 1.8 mg/dL (1.6-2.3); PTT Partial Thromboplastin Tim 40 SECONDS (25.1-36.5); Potassium 3.5 mmol/L (3.4-5.1); Sodium 132 mmol/L (137-145); Total Protein 7.1 g/dL (6.3-8.2)
[2024-08-12 21:25] LABS: NT-proBNP (BNP-Adult 18+) 123 pg/mL (<125); Troponin I < 0.012 ng/mL (0.01-0.034)
--- NOTE | 2024-08-12 21:46 | PC.NURSE ---
Pt ambulatory to restroom without difficulty or assistance.
--- NOTE | 2024-08-12 22:03 | PC.NURSE ---
Pt states pain a constant 2/10 pressure but gets worse with exertion.
--- NOTE | 2024-08-12 22:50 | PC.NURSE ---
Repeat trop drawn from existing IV line
--- NOTE | 2024-08-12 22:54 | EKG_ITS ---
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
[2024-08-12 23:17] LABS: Troponin I < 0.012 ng/mL (0.01-0.034)
[2024-08-13] VITALS (9 sets, daily range): BP systolic 129–157; BP diastolic 81–91; PULSE 49–61; RESP 14–20; TEMP 35.9–36.5; O2SAT 96–98; BMI 27.2
--- NOTE | 2024-08-13 00:02 | PC.NURSE ---
Dr. Dorsey at bedside
--- NOTE | 2024-08-13 00:06 | ED.CHESTPAIN ---
HPI - Chest Pain General Chief Complaint: Chest Pain Stated Complaint: chest px, SOB Time Seen by Provider: 08/13/24 00:06 Source: patient Mode of arrival: Ambulatory Limitations: no limitations History of Present Illness HPI narrative: 64-year-old male history of diabetes hyperlipidemia new onset atrial fibrillation now on apixaban presenting to day with chest pain and heaviness. He reports this all started July 22. He was diagnosed with new onset AFib he was cardioverted and placed on. He feels like the Eliquis is causing his chest discomfort. This is his 3rd visit to the ED with ongoing chest pain. His dad had coronary artery disease and multiple stents. He reports that today he had significant chest heaviness on the left side worse with exertion resolved with rest. It was much worse than it has been previously. Sometimes he has not in the center of his chest as well sometimes it comes on at rest. It is nonradiating. No significant shortness of breath. He feels like some of his symptoms may be due to the Eliquis. He was seen evaluated here on July 28 he had a chest CT which was normal he had workup at that time which was normal. At that time he was complaining of chest pain and heaviness that lasted for 24 hours now he reports that he has chest pain that last for about 5 minutes and then resolves. He reports that with exertion he can have and reproduce his chest discomfort. It has not reproducible with palpation. Related Data Home Medications Medication Instructions Recorded Confirmed famotidine 40 mg tablet 40 mg PO DAILY 03/01/24 08/13/24 metformin 500 mg tablet 500 mg PO BID 03/01/24 08/13/24 naltrexone 4.5 mg capsule 4.5 mg PO BEDTIME 03/01/24 08/13/24 rosuvastatin 10 mg tablet 10 mg PO ONCE PM 03/01/24 08/13/24 apixaban 5 mg tablet (Eliquis) 5 mg PO BID 07/28/24 08/13/24 Allergies Allergy/AdvReac Type Severity Reaction Status Date / Time No Known Drug Allergies Allergy Verified 03/01/24 17:10 Patient History Medical History (Updated 08/13/24 @ 01:38 by Nunu Dorsey DO) Atrial fibrillation Diabetes Cervical fusion syndrome Hypercholesteremia HTN (hypertension) GERD (gastroesophageal reflux disease) Surgical History H/O hernia repair S/P hip replacement Social History household members: spouse Smoking Status: Former smoker alcohol intake: former Smoking Status: Former smoker alcohol intake frequency: a few times a week Exam Initial Vital Signs Initial Vital Signs: Vital Signs Temperature 98.6 F 08/12/24 20:33 Pulse Rate 61 08/12/24 20:33 Respiratory Rate 21 08/12/24 20:33 Blood Pressure 152/87 H 08/12/24 20:33 Pulse Oximetry 100 08/12/24 20:33 Oxygen Delivery Method Room Air 08/12/24 20:33 GENERAL: Alert pleasant well-appearing 64-year-old male and in no acute distress. HEENT: Head atraumatic,EOMI, pupils reactive, face symmetric, moist mucous membranes CARDIOVASCULAR: Regular rate and rhythm without murmurs, rubs or gallops. RESPIRATORY: Breath sounds equal bilaterally, no wheezes rales or rhonchi. ABDOMEN: Soft, nontender. Normoactive bowel sounds all 4 quadrants. No guarding or rebound. EXTREMITIES: Normal range of motion, no clubbing or edema. Neurovascularly intact NEUROLOGICAL: Alert and oriented x4.Normal gait and speech. Cranial nerves II through XII grossly intact. SKIN: Warm, dry, no laceration, no petechiae, no rashes or lesions. Scores HEART Score Heart Score history: Highly Suspicious Heart Score EKG: Normal Heart Score Age: > or = 65 years old Heart Score risk factors: > 3 risk factors or hx of atherosclerotic disease Heart Score troponin: < or = to normal limit Heart Score Total: 6 Course Orders Ordered: ED Orders 08/12/24 20:31 EKG-12 Lead Stat 08/12/24 20:45 Complete Blood Count AUTO DIFF Stat Comprehensive Metabolic Panel Stat Lipase Stat Magnesium Stat NT-proBNP (BNP-Adult 18+) Stat PTT Partial Thromboplastin Gregory Stat Prothrombin Time INR Stat Troponin & CK Cardiac Panel Stat 08/12/24 20:49 XR chest 1V Stat EKG-12 Lead Stat 08/12/24 22:45 EKG-12 Lead Stat 08/12/24 22:48 Troponin I Stat Acetaminophen (Acetaminophen 325 Mg Tablet) 650 mg PO Q6H PRN PRN Reason: Fever/Mild Pain (1-3) Apixaban (Apixaban 5 Mg Tablet) 5 mg PO DAILY [facility] Atorvastatin Calcium (Atorvastatin 20 Mg Tablet) 20 mg PO BEDTIME [facility] Last Admin: 08/13/24 03:58 Dose: Not Given Documented By: Morphine Sulfate (Morphine 4 Mg/Ml Inj) 3 mg IV Q2HR PRN PRN Reason: pain Naloxone HCl (Naloxone 0.4 Mg/Ml Vial) 0.2 mg IV Q2MIN PRN PRN Reason: Opiate Reversal Non-Formulary Medication (Famotidine) 40 mg PO DAILY [facility] Non-Formulary Medication (Naltrexone) 4.5 mg PO BEDTIME [facility] Ondansetron HCl (Ondansetron 4 Mg/2 Ml Inj) 4 mg IV Q8HR PRN PRN Reason: Nausea And Vomiting Discontinued Medications Aspirin (Aspirin 81 Mg Chew Tab) 324 mg PO NOW ONE Stop: 08/12/24 20:50 Last Admin: 08/13/24 03:58 Dose: Not Given Documented By: Vital Signs Vital signs: Vital Signs - 8 hr 08/12/24 21:30 08/12/24 21:47 08/12/24 21:47 Pulse Rate 55 L 53 L Respiratory Rate 15 15 Blood Pressure 146/88 H Pulse Oximetry 96 95 Oxygen Delivery Method 08/12/24 22:00 08/12/24 22:00 08/12/24 22:30 Pulse Rate 55 L Respiratory Rate 15 Blood Pressure 128/76 139/82 Pulse Oximetry 95 Oxygen Delivery Method Room Air 08/12/24 22:30 08/12/24 23:00 08/12/24 23:00 Pulse Rate 55 L 53 L Respiratory Rate 15 20 Blood Pressure 135/79 Pulse Oximetry 95 95 Oxygen Delivery Method 08/12/24 23:30 08/12/24 23:30 08/13/24 00:00 Pulse Rate 53 L 53 L Respiratory Rate 13 14 Blood Pressure 150/86 H Pulse Oximetry 96 96 Oxygen Delivery Method Room Air 08/13/24 00:00 08/13/24 00:30 08/13/24 00:30 Pulse Rate 54 L Respiratory Rate 20 Blood Pressure 138/90 150/91 H Pulse Oximetry 97 Oxygen Delivery Method 08/13/24 01:00 08/13/24 01:30 08/13/24 01:30 Pulse Rate 49 L Respiratory Rate 14 Blood Pressure 154/84 H 144/81 H Pulse Oximetry 97 Oxygen Delivery Method MDM - Chest Pain Lab Data 08/12/24 20:45 08/12/24 20:45 Labs: Lab Results 08/12/24 08/12/24 Range/Units 20:45 22:48 WBC 4.6 (4.5-11.0) X10^3/uL RBC 4.42 L (4.5-5.9) X10^6/uL Hgb 13.6 (13.5-17.5) g/dL Hct 40.0 L (41-53) % MCV 90.4 (80-100) fL MCH 30.8 (26-34) PG MCHC 34.1 (30-36) % RDW 13.9 (11.6-14.8) % Plt Count 261 (150-400) X10^3/uL Neut % (Auto) 66.5 (50-75) % Lymph % (Auto) 17.1 L (25-40) % Orange % (Auto) 11.1 (3-14) % Eos % (Auto) 4.1 H (2-4) % Baso % (Auto) 1.2 (0-2) % Neut # (Auto) 3100 (9654-8931) /uL Lymph # (Auto) 800 L (4249-5237) /uL Orange # (Auto) 500 (0-900) /uL Eos # (Auto) 200 (0-450) /uL Baso # (Auto) 100 (0-100) /uL PT 12.9 H (9.4-12.5) SECONDS INR 1.1 (0.9-1.3) APTT 40 H (25.1-36.5) SECONDS Sodium 132 L (137-145) mmol/L Potassium 3.5 (3.4-5.1) mmol/L Chloride 101 (98-107) mmol/L Carbon Dioxide 26 (22-32) mmol/L BUN 13 (9-20) mg/dL Creatinine 0.96 (0.66-1.25) mg/dL Estimated GFR > 60 (>60) mL/min BUN/Creatinine Ratio 13.5 (6-22) Glucose 105 (80-110) mg/dL Calcium 9.7 (8.4-10.2) mg/dL Magnesium 1.8 (1.6-2.3) mg/dL Total Bilirubin 0.4 (0.2-1.3) mg/dL AST 28 (17-59) IU/L ALT 19 (<50) IU/L Alkaline Phosphatase 43 (38-126) U/L Total Creatine Kinase 83 (55-170) U/L Troponin I < 0.012 < 0.012 (0.01-0.034) ng/mL NT-Pro-B Natriuret Pep 123 (<125) pg/mL Total Protein 7.1 (6.3-8.2) g/dL Albumin 4.1 (3.5-5.0) g/dL Globulin 3.0 (1.7-4.1) g/dL Albumin/Globulin Ratio 1.4 (1.0-2.8) Lipase 81 (23-300) U/L Imaging Data Chest x-ray: Radiologist's Impression: PROCEDURE: XR CHEST 1V INDICATIONS: chest pain TECHNIQUE: One view of the chest was acquired. COMPARISON: [facility], , XR CHEST 1V, 07/28/2024, 16:32. FINDINGS: Surgical changes and devices: None. Lungs and pleura: Lungs are clear. No pleural effusions or pneumothorax. Mediastinum: Mediastinal contours appear normal. Heart size is normal. Bones and chest wall: No suspicious bony lesions. Overlying soft tissues appear unremarkable. IMPRESSION: No acute pulmonary process. Dictated by: Gaviota Dai M.D. on 08/12/2024 at 21:20 ECG Data Attestation: I personally reviewed and interpreted this ECG as follows: Prior ECG tracings: available for review Interpretation: Normal sinus rhythm rate 58 MA interval 152 QRS [address] changes no T-wave inversions similar prior EKG 2. Sinus rhythm no ischemic changes MDM Narrative Medical decision making narrative: MDM CC: Chest pain Complicating co-morbidities: [id number] diabetes hypertension prostate cancer with radiation AFib on Eliquis Medical records reviewed: ED visits July 22 for AFib with cardioversion placed on Eliquis July 28 visit for ongoing chest pain workup with chest CT Differential considered: Acute coronary syndrome drug reaction anxiety Exam documented above, pertinent findings include: Well-appearing 64-year-old male with out acute distress lung sounds are clear sinus rhythm Lab Test results independently reviewed as above. Pertinent findings: Troponin negative x2 CBC and CMP no clinically significant abnormalities Independently reviewed EKG as above Sinus rhythm no arrhythmia or ischemia Imaging studies independently reviewed: No acute cardiopulmonary myopathy Consultations: Dr. Casas accepts patient Re-evaluations: Not having recurrent chest pain or discomfort now Discussion: Patient is 64-year-old male presenting today with chest heaviness worse with exertion better with rest also comes on at rest. This is patient's 3rd time to the emergency department with a cardiac issue. He is followed by cardiology at [facility]. He was supposed to sees primary care provider in 2 days he has not scheduled for an echocardiogram until the end of August. Patient has a high-risk heart score up 6 be certainly having chest heaviness with exertion and better with rest. This is new over the last couple of weeks. Do not believe this is due to his Eliquis. Discharge Plan Departure Patient Disposition: Admitted as Observation Clinical Impression: Chest pain Admit Date/Time: 08/13/24 01:40 Admit Provider: Reginaldo Casas
--- NOTE | 2024-08-13 00:45 | PC.NURSE ---
Pt ambulatory to restroom without difficulty or assistance
--- NOTE | 2024-08-13 01:55 | PC.NURSE ---
Pt resting quietly with eyes closed, resps even and not labored. No distress noted at this time. Pt remains connected to cardiac, blood pressure, pulse ox, and resp monitors with alarms on and audible. Call light within reach.
[2024-08-13 03:18] LABS: Troponin I < 0.012 ng/mL (0.01-0.034)
--- NOTE | 2024-08-13 04:24 | P.HP_ITS ---
History of Present Illness History of Present Illness Chief complaint: chest px, SOB Narrative: 64-year-old male with past medical history of hyperlipidemia, diabetes and new onset of atrial fibrillation on a Eliquis presents with chest pain. Note the patient report that he initially experienced chest pain on July 22, 2024. The patient was recently diagnosed with Afib fibrillation. Soon after, since July 22 till now the patient has been having intermittent chest pain in which he presented to our ER three times. The patient however was sent home after negative work up. Note, the patient's father had RI in his 60s and had cardiac stents placed. Today, patient states that his chest pain/heaviness is worse than normal. The patient described his chest pain as left sided, Non-radiating and heaviness in sensation. The patient states the intensity is severe. Otherwise the patient denies any fever, chills, nausea, vomiting, diarrhea or shortness of breath. In our emergency room, the patient was hemodynamically stable. Troponins were negative x 2. EKG shows no signs of acute ischemia. Our ER physician wanted to admit the patient to rule out ACS with a stress test. [facility] Medical History (Updated 08/13/24 @ 01:38 by Nunu Dorsey DO) Atrial fibrillation Diabetes Cervical fusion syndrome Hypercholesteremia HTN (hypertension) GERD (gastroesophageal reflux disease) Surgical History H/O hernia repair S/P hip replacement Social History household members: spouse Smoking Status: Former smoker alcohol intake: former Meds Home Medications and Allergies Home Medications Medication Instructions Recorded Confirmed Type famotidine 40 mg tablet 40 mg PO DAILY 03/01/24 08/13/24 History metformin 500 mg tablet 500 mg PO BID 03/01/24 08/13/24 History naltrexone 4.5 mg capsule 4.5 mg PO BEDTIME 03/01/24 08/13/24 History rosuvastatin 10 mg tablet 10 mg PO ONCE PM 03/01/24 08/13/24 History apixaban 5 mg tablet (Eliquis) 5 mg PO BID 07/28/24 08/13/24 History Allergies Allergy/AdvReac Type Severity Reaction Status Date / Time No Known Drug Allergies Allergy Verified 03/01/24 17:10 Review of Systems Review of Systems ROS: Yes All systems reviewed with the patient and are negative except as otherwise documented Exam Vital Signs (past 8 hours): - 08/12/24 20:33 08/12/24 20:41 08/12/24 20:41 Temperature 98.6 F Pulse Rate 61 60 Respiratory Rate 21 17 Blood Pressure 152/87 H 152/87 H Pulse Oximetry 100 98 Oxygen Delivery Method Room Air Oxygen Flow Rate 08/12/24 21:00 08/12/24 21:30 08/12/24 21:47 Temperature Pulse Rate 57 L 55 L 53 L Respiratory Rate 18 15 15 Blood Pressure Pulse Oximetry 97 96 95 Oxygen Delivery Method Oxygen Flow Rate 08/12/24 21:47 08/12/24 22:00 08/12/24 22:00 Temperature Pulse Rate 55 L Respiratory Rate 15 Blood Pressure 146/88 H 128/76 Pulse Oximetry 95 Oxygen Delivery Method Room Air Oxygen Flow Rate 08/12/24 22:30 08/12/24 22:30 08/12/24 23:00 Temperature Pulse Rate 55 L 53 L Respiratory Rate 15 20 Blood Pressure 139/82 Pulse Oximetry 95 95 Oxygen Delivery Method Oxygen Flow Rate 08/12/24 23:00 08/12/24 23:30 08/12/24 23:30 Temperature Pulse Rate 53 L Respiratory Rate 13 Blood Pressure 135/79 150/86 H Pulse Oximetry 96 Oxygen Delivery Method Oxygen Flow Rate 08/13/24 00:00 08/13/24 00:00 08/13/24 00:30 Temperature Pulse Rate 53 L 54 L Respiratory Rate 14 20 Blood Pressure 138/90 Pulse Oximetry 96 97 Oxygen Delivery Method Room Air Oxygen Flow Rate 08/13/24 00:30 08/13/24 01:00 08/13/24 01:30 Temperature Pulse Rate 49 L Respiratory Rate 14 Blood Pressure 150/91 H 154/84 H Pulse Oximetry 97 Oxygen Delivery Method Oxygen Flow Rate 08/13/24 01:30 08/13/24 02:00 08/13/24 02:00 Temperature Pulse Rate 54 L Respiratory Rate 16 Blood Pressure 144/81 H 157/88 H Pulse Oximetry 96 Oxygen Delivery Method Oxygen Flow Rate 08/13/24 02:27 Temperature 96.7 F L Pulse Rate 55 L Respiratory Rate 16 Blood Pressure 145/85 H Pulse Oximetry 96 Oxygen Delivery Method Oxygen Flow Rate 0 Oxygen Delivery Method Room Air Oxygen Flow Rate 0 Narrative Exam Narrative: Physical Exam: GENERAL: The patient is not in any acute distressed. Awake and alert. HEENT: Nonicteric sclerae, PERRLA, EOMI. Oropharynx clear. Moist mucous membranes. Conjunctivae appear well perfused. HEART: Regular rate and rhythm without murmurs. No lower extremities edema. LUNGS: Clear to auscultation bilaterally. No wheezing, crackles or rhonchi ABDOMEN: Soft, positive bowel sounds, nontender. SKIN: No rash, no excessive bruising, petechiae, or purpura. NEUROLOGIC: AxO x 3. Cranial nerves II-XII intact without motor/sensory deficit. Objective Labs 08/12/24 20:45 08/12/24 20:45 Labs: Laboratory Results - last 24 hr 08/12/24 08/12/24 08/13/24 20:45 22:48 02:45 WBC 4.6 RBC 4.42 L Hgb 13.6 Hct 40.0 L MCV 90.4 MCH 30.8 MCHC 34.1 RDW 13.9 Plt Count 261 Neut % (Auto) 66.5 Lymph % (Auto) 17.1 L Ing[place] % (Auto) 11.1 Eos % (Auto) 4.1 H Baso % (Auto) 1.2 Neut # (Auto) 3100 Lymph # (Auto) 800 L [place] # (Auto) 500 Eos # (Auto) 200 Baso # (Auto) 100 PT 12.9 H INR 1.1 APTT 40 H Sodium 132 L Potassium 3.5 Chloride 101 Carbon Dioxide 26 BUN 13 Creatinine 0.96 Estimated GFR > 60 BUN/Creatinine Ratio 13.5 Glucose 105 Calcium 9.7 Magnesium 1.8 Total Bilirubin 0.4 AST 28 ALT 19 Alkaline Phosphatase 43 Total Creatine Kinase 83 Troponin I < 0.012 < 0.012 < 0.012 NT-Pro-B Natriuret Pep 123 Total Protein 7.1 Albumin 4.1 Globulin 3.0 Albumin/Globulin Ratio 1.4 Lipase 81 Assessment & Plan Assessment & Plan narrative: Chest pain. Admit the patient to medical telemetry under observation. Continue to trend Troponin. Note tropes has been negative x 2 and EKG shows no acute sign of ischemima. Continue aspirin and Statin. Obtain A1c and lipid profile. Will need stress test in the morning. No patient chest pain-free now. Recently diagnosed with atrial fibrillation. Continue home medications including Eliquis. Patient rate is controlled. Hyperlipidemia. Resume home Statin. Hypertension monitor blood pressure and treat accordingly. Diabetes. Monitor glucose and treat with SQ if needed. DVT prophylaxis Eliquis. Status full code. Disposition likely home in 1 to 2 days. Time-Based Coding :: [TOTAL MINUTES] spent with patient and on the chart (including review of chart, obtaining history, exam, reviewing outside data, placing orders, documenting exam and treatment plan, and counseling patient) on [DATE].
[2024-08-13 06:39] LABS: Cholesterol 139 mg/dL (140-199); HDL Cholesterol 56 mg/dL (40-60); LDL Cholesterol Calculated 64 mg/dL (<100); Triglycerides 96 mg/dL (35-150)
[2024-08-13 06:41] LABS: Hemoglobin A1C% w Est Avg Glu 5.3 % (4.0-6.0)
[2024-08-13 06:51] LABS: Troponin I < 0.012 ng/mL (0.01-0.034)
--- NOTE | 2024-08-13 06:56 | PC.NURSE ---
Pt was admitted with CHEST PAIN, pt states it feels like a dull pressure, that is constant and worts with activity. according to patient he has an echocardiogram schedule later on this month. pt on tele SB with BBB, troponin X 3 negative.
[2024-08-13] MEDS: APIXABAN 5 MG TABLET PO (09:31)
--- NOTE | 2024-08-13 10:19 | CM.DANOTE ---
Patient is a 64 yo male who was admitted on 08/13/24 for CHest Pain r/o. Pt has MCR and BX FED for insurance and his PCP is Dr. Domi Sloan. EMR was reviewed. Per MD, pt with recently multiple ED visits for chest pain and family hx of cardiac issues and admitted for observation and Nuc Stress Test. Reviewed chart, met with patient to introduce self and role. Patient lives independently with spouse at home in [place]. Pt does not use DME for ambulation and still drives and denies any hx of HH or SNF and is hopeful for answers to help resolve his chest pain. Pt states he also has been recovering from Pneumonia for the past few weeks and just finally starting to feel better and then he had chest pain. Patient reports being a cancer survivor and that he has low immunity. Patient with hx of Vit C infusions at home which [facility] helped to manage. Patient denies needs from this CM team currently, states appreciation for the visit. No barriers identified at this time to patient's safe discharge home w/family to assist; close outpatient f/u recommended. Plan: SW to follow for stress test results towards possible discharge home later today pending results. OZZIE Ponce Discharge Planning/Care Management CM Discharge Assessment Start: 08/13/24 10:16 Freq: Status: Active Protocol: Document 08/13/24 10:17 BF (Rec: 08/13/24 10:18 BF [id number]) Discharge Planning Assessment Assigned Cook Apprentice OZZIE Painter DPOA/Assigned Designee Name spouse Donnie Contact Information [phone] Advance Directives? Yes Advance Directives on File No History Provided By Patient,Medical Record Has Patient been admitted in last 30 No days? Comment recent 3 ED visits for chest pain Prior Living Arrangements House Household Members spouse Type of transporation used prior to Drives own vehicle admit Independent with ADL's Yes Is patient alert and oriented? Yes Caregiver for Another No Barriers to Discharge No Discharge Plan Home Transportation Arrangement Spouse Referrals Initiated None needed Whiteboard Updated in Patient Room with Yes name and ext. # of Cook Apprentice Review Status In Process Please Provide Date Initial DC 08/13/24 Assessment Was Performed Next Review Type Continued Stay Review
[2024-08-13] MEDS: FAMOTIDINE 20 MG TABLET 40 MG PO ×2 (13:12→13:32)
--- NOTE | 2024-08-13 14:15 | P.DS_ITS ---
History of Present Illness History of Present Illness Chief complaint: chest px, SOB Narrative: From history and physical: 64-year-old male with past medical history of hyperlipidemia, diabetes and new onset of atrial fibrillation on a Eliquis presents with chest pain. Note the patient report that he initially experienced chest pain on July 22, 2024. The patient was recently diagnosed with Afib fibrillation. Soon after, since July 22 till now the patient has been having intermittent chest pain in which he presented to our ER three times. The patient however was sent home after negative work up. Note, the patient's father had VT in his 60s and had cardiac stents placed. Today, patient states that his chest pain/heaviness is worse than normal. The patient described his chest pain as left sided, Non-radiating and heaviness in sensation. The patient states the intensity is severe. Otherwise the patient denies any fever, chills, nausea, vomiting, diarrhea or shortness of breath. In our emergency room, the patient was hemodynamically stable. Troponins were negative x 2. EKG shows no signs of acute ischemia. Our ER physician wanted to admit the patient to rule out ACS with a stress test. Discharge Providers Provider Date of admission: 08/13/24 01:40 Discharge Date: 08/13/24 Primary care physician: Domi Sloan MD Consults: None. Discharge provider: Alan Vizcarra MD Summary Hospital Course Discharge Diagnosis: Chest pain. Active. Low risk nuclear stress test, history consistent with possible reflux esophagitis and spasm. Atrial fibrillation. Stable. Hyperlipidemia. Stable. Hypertension. Stable. Prostate cancer, stage 3. Stable. Diabetes 2. Stable. Hospital Course: The patient was admitted with atypical chest pain. The patient has a several day history of atypical chest pain described as wavering in not clearly associated with exertion. Some episodes have happened with rest, there was no radiation of pain to neck or arm. He denies associated nausea, vomiting or diaphoresis. No recent dyspnea. The patient has atrial fibrillation and believes that he was having side effects from Eliquis including some of his symptoms. He was have a long history of GERD and takes famotidine 40 mg daily and very occasional Tums. He did take a PPI for years and wanted to get off from this. He was switching to Dr. Leone of Cardiology and has an echo scheduled in August. He was no known history of CAD. Stress test with nuclear scan was unremarkable, the patient did well and was able to walk for 9 minutes. This is read as low risk. 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 He will take his famotidine b.i.d. for a couple of weeks and scheduled Tums twice a day as well to see if this changes his symptoms. Status at Discharge Cognitive/behavioral status at discharge: at baseline, oriented Functional status at discharge: independent ambulation Overall status at discharge: patient is back to baseline Time Spent with Patient Time spent: Greater than 30 minutes Exam Vital Signs (past 8 hours): - 08/13/24 06:25 08/13/24 08:20 08/13/24 12:00 Temperature 97.6 F 97.7 F 96.9 F L Pulse Rate 53 L 53 L 61 Respiratory Rate 16 16 15 Blood Pressure 142/86 H 145/84 H 129/86 Pulse Oximetry 98 96 97 Oxygen Flow Rate 0 0 0 Oxygen Delivery Method Room Air Oxygen Flow Rate 0 Narrative Exam Narrative: NAD, alert and oriented. Fluent speech. Lungs are clear, normal rate and effort. Heart is regular, no murmur gallop or rub. Abdomen is soft, non distended. Extremities are free of edema. Objective ECG Impression: Wide QRS rhythm Nonspecific intraventricular conduction delay Nonspecific T wave abnormality Imaging Chest x-ray: Radiologist's impression: No acute pulmonary process. CT scan - chest: Radiologist's impression: From 07/28/24: Cardiovascular and Mediastinum: Heart size is normal. No evidence of thoracic aortic aneurysm. Pulmonary vasculature is unremarkable. No hiatal hernia. Thyroid gland unremarkable. Lungs and Pleural Spaces: The lung hou are clear without nodule, infiltrate or interstitial prominence. Pleural spaces show no effusion or pneumothorax. Lymph Nodes: No mediastinal, hilar or axillary adenopathy. Musculoskeletal: No evidence of rib fracture. Thoracic spine unremarkable. Chest wall and sternum intact. No lytic or blastic lesions. Upper abdomen: Visualized portions of the liver, spleen and kidneys are unremarkable. IMPRESSION: Unremarkable CT of the chest Labs 08/12/24 20:45 08/12/24 20:45 Labs: Laboratory Results - last 24 hr 08/12/24 08/12/24 08/13/24 20:45 22:48 02:45 WBC 4.6 RBC 4.42 L Hgb 13.6 Hct 40.0 L MCV 90.4 MCH 30.8 MCHC 34.1 RDW 13.9 Plt Count 261 Neut % (Auto) 66.5 Lymph % (Auto) 17.1 L Sam[place] % (Auto) 11.1 Eos % (Auto) 4.1 H Baso % (Auto) 1.2 Neut # (Auto) 3100 Lymph # (Auto) 800 L [place] # (Auto) 500 Eos # (Auto) 200 Baso # (Auto) 100 PT 12.9 H INR 1.1 APTT 40 H Sodium 132 L Potassium 3.5 Chloride 101 Carbon Dioxide 26 BUN 13 Creatinine 0.96 Estimated GFR > 60 BUN/Creatinine Ratio 13.5 Glucose 105 Hemoglobin A1c Calcium 9.7 Magnesium 1.8 Total Bilirubin 0.4 AST 28 ALT 19 Alkaline Phosphatase 43 Total Creatine Kinase 83 Troponin I < 0.012 < 0.012 < 0.012 NT-Pro-B Natriuret Pep 123 Total Protein 7.1 Albumin 4.1 Globulin 3.0 Albumin/Globulin Ratio 1.4 Triglycerides Cholesterol LDL Cholesterol, Calc HDL Cholesterol Lipase 81 08/13/24 06:01 WBC RBC Hgb Hct MCV MCH MCHC RDW Plt Count Neut % (Auto) Lymph % (Auto) Sampson % (Auto) Eos % (Auto) Baso % (Auto) Neut # (Auto) Lymph # (Auto) Sampson # (Auto) Eos # (Auto) Baso # (Auto) PT INR APTT Sodium Potassium Chloride Carbon Dioxide BUN Creatinine Estimated GFR BUN/Creatinine Ratio Glucose Hemoglobin A1c 5.3 Calcium Magnesium Total Bilirubin AST ALT Alkaline Phosphatase Total Creatine Kinase Troponin I < 0.012 NT-Pro-B Natriuret Pep Total Protein Albumin Globulin Albumin/Globulin Ratio Triglycerides 96 Cholesterol 139 L LDL Cholesterol, Calc 64 HDL Cholesterol 56 Lipase PFSH Medical History Atrial fibrillation Diabetes Cervical fusion syndrome Hypercholesteremia HTN (hypertension) GERD (gastroesophageal reflux disease) Surgical History H/O hernia repair S/P hip replacement Social History household members: spouse Smoking Status: Former smoker alcohol intake: former Discharge Assessment & Plan Assessment and Plan Assessment: Chest pain. Active. Low risk nuclear stress test, history consistent with possible reflux esophagitis and spasm. Atrial fibrillation. Stable. Hyperlipidemia. Stable. Hypertension. Stable. Prostate cancer, stage 3. Stable. Diabetes 2. Stable. Plan of Treatment: Discharge home famotidine b.i.d., Tums b.i.d., change Eliquis to Pradaxa per his request due to concerns with side effects of Eliquis including nonspecific symptoms. He was follow up with Cardiology pending as well as an echo. Discharge Plan Discharge Plan Patient Disposition: Home Provider Discharge Comment: Stable for discharge home. We will increase famotidine to b.i.d.. Discharge orders & Medications Prescriptions: New dabigatran etexilate 150 mg capsule 150 mg PO BID Qty: 60 2RF Continued metformin 500 mg tablet 500 mg PO BID rosuvastatin 10 mg tablet 10 mg PO ONCE PM naltrexone 4.5 mg Capsule 4.5 mg PO BEDTIME Changed famotidine 40 mg tablet 40 mg PO BID Qty: 60 2RF Discontinued Eliquis 5 mg tablet 5 mg PO BID Follow up/Referrals: Domi Sloan MD [Primary Care Provider] - Diet/Activity/Treatments Diet: Regular Visit Report/Discharge Packet Instructions: DI for Atypical Chest Pain Stand Alone Forms: Patient Portal/API Discharge Data Primary Care Provider: Domi Sloan Attending Provider: Reginaldo Casas Date/Time: 08/13/24 01:40
--- NOTE | 2024-08-13 14:55 | DI.NM.S_ITS ---
DATE OF SERVICE: 08/13/2024 PROCEDURE: Exercise perfusion study. INDICATIONS: Chest pain with underlying diabetes mellitus, hypertension, hyperlipidemia, paroxysmal AFib. RADIOPHARMACEUTICAL: 26.6 millicurie technetium-99m Myoview IV was injected at stress and 11.3 millicurie technetium-99m Myoview IV was injected at rest. CARDIAC STRESS: The patient underwent exercise perfusion study under the supervision of an attending staff. He walked on Myron protocol for 9 minutes, achieved maximum heart rate of 144, which was 93% of target heart rate. Resting blood pressure 132/80 and peak blood pressure 186/100.. SALLY -14%. 10.1 METS of workload. Baseline rhythm sinus. During stress, no convincing ischemic changes seen. No significant arrhythmias. No chest pain. Had some shortness of breath. RAW DATA: There is increased subdiaphragmatic activity. GATED STUDY: Stress LV ejection fraction 67% without any obvious wall motion abnormalities. Resting end-diastolic volume 144 mL. TID ratio 0.92, which is within normal limits. Lung/heart ratio 0.21, which is within normal limits. MYOCARDIAL PERFUSION SCAN: Stress supine, resting supine and stress prone images were compared to each other. Stress supine and resting supine images revealed moderate size, mildly decreased perfusion of base to mid inferior wall, inferoapex, which got significantly improved during stress prone images suggestive of diaphragmatic tissue attenuation artifact. No convincing ischemia or infarction. Summed stress score zero, summed rest score zero and difference score is zero. CONCLUSION: I will call this study a normal myocardial perfusion study with evidence of diaphragmatic tissue attenuation artifact, which got significantly improved during stress prone images. Good exercise tolerance. SALLY -14%. The patient achieved 93% of target heart rate. Peak blood pressure 186/100 . No anginal symptoms. No significant arrhythmias. Overall, low-risk myocardial perfusion scan. Ian Dahl - SVETLANA/demetrice/KOKO doc#: [id number]/job#: [id number] dd: 08/13/2024 12:59:00 dt: 08/13/2024 14:10:00 DICTATING MD/COPIES TO: Nishant Mazariegos MD COPIES MNE: MAXWELL;
--- NOTE | 2024-08-13 15:13 | PC.NURSE ---
Pt is A&OX4, VSS, afebrile on RA. He has stress test completed this a.m. and early this afternoon. MD at bedside reviewing results and clears him for discharge home with medication adjustments. Patient verbalizes understanding of discharge instructions and medications, and he is escorted to hospital entrance to wait for to arrived in private vehicle for discharge home today at approximately 3 pm.
== END 2024-08-13 15:00 | disposition home or self-care (01) ==
LOC: ED 08-13 01:38 → AC 08-13 01:40
PROVIDERS: Admitting Provider Internal Medicine; Emergency Provider Emergency Medicine; PCP Family Medicine; Visit Provider Internal Medicine
DX: R07.9 Chest pain, unspecified (principal); E78.5 Hyperlipidemia, unspecified; I10 Essential (primary) hypertension; E11.9 Type 2 diabetes mellitus without complications; I48.91 Unspecified atrial fibrillation; Z79.01 Long term (current) use of anticoagulants; Z79.84 Long term (current) use of oral hypoglycemic drugs
CPT/HCPCS: 36415; 71045; 78452; 80053; 80061; 82550; 82962; 83036; 83690; 83735; 83880; 84484; 85025; 85610; 85730; 93005; 93017; 99284; G0378; A9270; A9502

== ENCOUNTER → 2024-09-10 09:10 | Outpatient (CLI) | payer MEDICARE, OTHER, SELFPAY ==
[2024-08-13 03:27] VITALS: BMI 27.2
--- NOTE | 2024-09-10 09:12 | DI.ECHO.S_ITS ---
[facility] : : [address] : : [place] : : [id number] : : Phone: [phone] Echocardiogram Report + + :Name: MAAME KAPLAN Study Date: 09/10/2024 Height: 70 in : :[facility] ReadingLocation: Weight: 194 lb : : Gender: Male BSA: 2.1 m2 : :: 1960 Age: 64 yrs BP: 133/94 mmHg: :Reason For Study: ATRIAL FIBRILLATION : :Ordering Physician: MAGED, : :MARCELLE Performed By: Mary Vazquez : :Referring: MARCELLE LYNNE : + + Interpretation Summary The left ventricle is normal in size. Left ventricular systolic function appears normal without focal wall motion abnormalities. The ejection fraction is estimated to be 55-60%. Diastolic parameters suggest probable normal left ventricular diastolic function and normal filling pressures. The right ventricle is mildly dilated. The right ventricular systolic function is normal. The right ventricular systolic pressure is estimated to be at least 33 mmHg based on an estimated right atrial pressure of 3 mm Hg. The left atrium is borderline dilated. The right atrium is mild to moderately dilated. There is mild to moderate mitral regurgitation. There is mild aortic regurgitation. There is mild to moderate tricuspid regurgitation. The ascending aorta is moderately enlarged. Procedure: A two-dimensional transthoracic echocardiogram with color flow and Doppler was performed. The study quality was technically adequate. There is no prior echocardiogram noted for this patient. The patient was in sinus rhythm with heart rates between 59-67 bpm during the exam. Left Ventricle: The left ventricle is normal in size. Left ventricular wall thickness is mildly increased. Left ventricular systolic function appears normal without focal wall motion abnormalities. The ejection fraction is estimated to be 55-60%. Diastolic parameters suggest probable normal left ventricular diastolic function and normal filling pressures. Right Ventricle: The right ventricle is mildly dilated. The right ventricular systolic function is normal. Atria: The left atrium is borderline dilated. The right atrium is mild to moderately dilated. There is no Doppler evidence for an interatrial shunt. Mitral Valve: The mitral valve leaflets appear to open well. There is mild to moderate mitral regurgitation. Aortic Valve: The aortic valve is trileaflet. The aortic valve opens well. There is no aortic valve stenosis. There is mild aortic regurgitation. Tricuspid Valve: The tricuspid valve leaflets are thin and pliable. There is mild to moderate tricuspid regurgitation. The right ventricular systolic pressure is estimated to be at least 33 mmHg based on an estimated right atrial pressure of 3 mm Hg. Pulmonic Valve: The pulmonic valve leaflets are thin and pliable; valve motion is normal. There is trace pulmonic regurgitation. Great Vessels: The aortic root is normal size. The ascending aorta is moderately enlarged. The IVC is of normal diameter and collapses greater than 50% with a sniff. This suggests a low right atrial pressure of 3 mm Hg. Pericardium/ Pleura There is no pericardial effusion. There is no pleural effusion. MMode/2D Measurements & Calculations LVIDd: 5.1 cm LVOT diam: 2.5 cm LVIDs: 3.0 cm Ao root diam: 3.8 cm FS: 41.9 % asc Aorta Diam: 4.4 cm EPSS: 0.47 cm Ao Arch Diam (Prox Trans): 3.2 cm IVSd: 1.2 cm LVPWd: 0.93 cm LV zamora. diameter/BSA (cm/m^2): 2.5 LV sys. diameter/BSA (cm/m^2): 1.4 LA A2 area: 20.9 cm2 RA long axis: 6.0 cm LA A4 area: 24.7 cm2 RA area: 24.2 cm2 LA length (vol): 6.2 cm RA vol: 82.3 ml LA vol: 70.8 ml RA : 40.0 ml/m2 LA vol index: 34.4 ml/m2 IVC diam: 1.4 cm RVD1 (basal): 4.5 cm RVD2 (mid): 3.7 cm TAPSE: 2.9 cm Doppler Measurements & Calculations LVOT Max Nitesh: 121.8 cm/sec MV E max nitesh: 60.3 cm/sec LV V1 max P.9 mmHg MV A max nitesh: 55.8 cm/sec LV V1 VTI: 24.4 cm MV E/A: 1.1 AI P1/2t: 670.1 msec Med Peak E' Nitesh: 5.2 cm/sec AI dec slope: 202.6 cm/sec2 E/E' med: 11.6 Lat Peak E' Nitesh: 6.3 cm/sec E/E' lat: 9.5 E/e' average: 10.5 MV dec time: 0.26 sec TR max nitesh: 274.8 cm/sec SV(LVOT): 116.6 ml TR max P.2 mmHg PA V2 max: 128.1 cm/sec PA V2 mean: 80.8 cm/sec PA mean P.0 mmHg PA pr(Accel): 27.6 mmHg Reading Physician:12:47 PM
== END ==
PROVIDERS: PCP Family Medicine; Referring Provider Internal Medicine Cardiovascular Disease; Visit Provider Internal Medicine Cardiovascular Disease
DX: I08.3 Combined rheumatic disorders of mitral, aortic and tricuspid valves (principal); I77.810 Thoracic aortic ectasia; I48.19 Other persistent atrial fibrillation
CPT/HCPCS: 93306

== ENCOUNTER 2024-12-31 13:02 | Emergency (ER) | payer MEDICARE, OTHER, SELFPAY ==
[2024-08-13 03:27] VITALS: BMI 27.2
[2024-12-31] VITALS (30 sets, daily range): BP systolic 114–149; BP diastolic 73–88; PULSE 46–125; RESP 12–24; TEMP 36.3–36.6; O2SAT 91–99; BMI 27.9
--- NOTE | 2024-12-31 13:13 | EKG_ITS ---
[address] [address] Test Date: 2024-12-31 Pat Name: Ian Dahl Department: Room: Gender: Male Boom Supervisor: MANDY : 1960 Requested By: Order Number: [id number] Reading MD: Yusuf Romo MD Measurements Intervals [place] Rate: 95 P: DE: QRS: -3 QRSD: 108 T: 35 QT: 380 QTc: 477 Interpretive Statements Atrial fibrillation Electronically Signed On 12-31-2024 17:01:43 PDT by Yusuf Romo MD
--- NOTE | 2024-12-31 13:17 | DI.RAD.S_ITS ---
PROCEDURE: XR CHEST 1V INDICATIONS: Chest Pain TECHNIQUE: One view of the chest was acquired. COMPARISON: [facility], CR, XR CHEST 1V, 08/12/2024, 20:47. [facility], CR, XR CHEST 1V, 07/28/2024, 16:32. FINDINGS: Surgical changes and devices: None. Lungs and pleura: Lungs are clear. No pleural effusions or pneumothorax. Mediastinum: Mediastinal contours appear normal. Heart size is normal. Bones and chest wall: No suspicious bony lesions. Overlying soft tissues appear unremarkable. IMPRESSION: No acute cardiopulmonary abnormality is seen. Dictated by: Ashish Saavedra M.D. on 12/31/2024 at 13:37 Approved by: Ashish Saavedra M.D. on 12/31/2024 at 13:38
[2024-12-31 13:31] LABS: Add Manual Diff / Slide Review NO; Basophils Absolute Auto 0 /uL (0-100); Basophils Percent Auto 0.6 % (0-2); Eosinophils Absolute Auto 0 /uL (0-450); Eosinophils Percent Auto 0.9 % (2-4); Hematocrit 41.9 % (41-53); Hemoglobin 14.5 g/dL (13.5-17.5); Lymphocytes Absolute Auto 600 /uL (1100-4500); Lymphocytes Percent Auto 11.8 % (25-40); Mean Corpuscular HGB Conc 34.6 % (30-36); Mean Corpuscular Hemoglobin 31.6 PG (26-34); Mean Corpuscular Volume 91.3 fL (80-100); Monocytes Absolute Auto 500 /uL (0-900); Monocytes Percent Auto 9.1 % (3-14); Neutrophils Absolute Auto 4300 /uL (1500-7000); Neutrophils Percent Auto 77.6 % (50-75); Platelet Count 227 X10^3/uL (150-400); Red Blood Cell Count 4.59 X10^6/uL (4.5-5.9); Red Cell Distribution Width 13.7 % (11.6-14.8); White Blood Cell Count 5.5 X10^3/uL (4.5-11.0)
[2024-12-31 13:35] LABS: Prothrombin Time 11.8 SECONDS (9.4-12.5)
[2024-12-31 13:38] LABS: PTT Partial Thromboplastin Tim 36 SECONDS (25.1-36.5)
[2024-12-31 13:40] LABS: Alanine Aminotransferase 19 IU/L (<50); Albumin 4.6 g/dL (3.5-5.0); Albumin Globulin Ratio 1.8 (1.0-2.8); Alkaline Phosphatase 57 U/L (38-126); Aspartate Aminotransferase 28 IU/L (17-59); BUN Creatinine Ratio 14.4 (6-22); Bilirubin Total 0.5 mg/dL (0.2-1.3); Blood Urea Nitrogen 14 mg/dL (9-20); Calcium 9.5 mg/dL (8.4-10.2); Carbon Dioxide 24 mmol/L (22-32); Chloride 102 mmol/L (98-107); Creatine Kinase 75 U/L (55-170); Estimated Glomerular Filt Rate > 60 mL/min (>60); Globulin 2.6 g/dL (1.7-4.1); Glucose 98 mg/dL (70-99); HEMOLYSIS 16 (0-50); Lipase 113 U/L (23-300); Magnesium 1.7 mg/dL (1.6-2.3); Potassium 3.9 mmol/L (3.4-5.1); Sodium 134 mmol/L (137-145); Total Protein 7.2 g/dL (6.3-8.2)
[2024-12-31 13:41] LABS: Lactate (Lactic Acid) 1.2 mmol/L (0.7-2.1)
[2024-12-31 13:51] LABS: NT-proBNP (BNP-Adult 18+) 128 pg/mL (<125); Troponin I < 0.012 ng/mL (0.01-0.034)
--- NOTE | 2024-12-31 16:02 | ED.ARRPALP ---
HPI - Arrhythmia/Palpitations General Chief Complaint: Arrhythmia/Palpitations Stated Complaint: Per Patient he is in AFIB Time Seen by Provider: 12/31/24 15:58 Source: patient Mode of arrival: Ambulatory History of Present Illness HPI narrative: Patient is a 64-year-old male history of paroxysmal atrial fibrillation on metoprolol and Pradaxa presenting today with atrial fibrillation. He reports he checks his watch daily to see if he is in AFib which he generally is not however today he felt it happened at 11:48 a.m.. In his watch confirmed he was in AFib. He just feels some fluttering in his chest. He took metoprolol prior to arrival heart rate is controlled. He is not significantly short of breath. He reports he was previously cardioverted like to be cardioverted now. He admits to having 1 alcoholic beverage last night but does not typically drink alcohol. Related Data Home Medications Medication Instructions Recorded Confirmed metformin 500 mg tablet 500 mg PO BID 03/01/24 08/13/24 naltrexone 4.5 mg capsule 4.5 mg PO BEDTIME 03/01/24 08/13/24 rosuvastatin 10 mg tablet 10 mg PO ONCE PM 03/01/24 08/13/24 Previous Rx's Medication Instructions Recorded dabigatran etexilate 150 mg capsule 150 mg PO BID #60 caps 08/13/24 famotidine 40 mg tablet 40 mg PO BID #60 tabs 08/13/24 Allergies Allergy/AdvReac Type Severity Reaction Status Date / Time No Known Drug Allergies Allergy Verified 12/31/24 13:16 Patient History Medical History Atrial fibrillation Diabetes Cervical fusion syndrome Hypercholesteremia HTN (hypertension) GERD (gastroesophageal reflux disease) Surgical History H/O hernia repair S/P hip replacement Social History household members: spouse Smoking Status: Never smoker alcohol intake: former Smoking Status: Never smoker alcohol intake frequency: a few times a week Exam Initial Vital Signs Initial Vital Signs: Vital Signs Pulse Rate 112 H 12/31/24 13:08 Respiratory Rate 16 12/31/24 13:08 Pulse Oximetry 91 12/31/24 13:08 GENERAL: Alert pleasant well-appearing 64-year-old male HEENT: Head atraumatic,EOMI, pupils reactive, face symmetric, moist mucous membranes CARDIOVASCULAR: Irregularly irregular no murmur RESPIRATORY: Breath sounds equal bilaterally, no wheezes rales or rhonchi. ABDOMEN: Soft, nontender. Normoactive bowel sounds all 4 quadrants. No guarding or rebound. EXTREMITIES: Normal range of motion, no clubbing or edema. Neurovascularly intact NEUROLOGICAL: Alert and oriented x4.Normal gait and speech. Cranial nerves II through XII grossly intact. SKIN: Warm, dry, no laceration, no petechiae, no rashes or lesions. Procedures Cardioversion Time of Cardioversion: 16:56 Consent Signed: Yes Indication: Atrial fibrillation Stability: Stable Number of attempts (shocks): 1 Joules used: 120 Cardiac rhythm post-cardioversion: Normal sinus rhythm Procedural Sedation Time of procedure: 16:56 Consent signed: Yes Time out performed: Yes Indication: cardioversion ASA Class: II Mallampati Airway Classification: Class II IV Propofol dose (mg): 50 Intraservice time/total sedation time (min): 12 ED Sedation Level: Moderate (Concious) Patient Tolerated Procedure: Well and No complications Course Orders Ordered: ED Orders 12/31/24 13:15 Complete Blood Count AUTO DIFF Stat Comprehensive Metabolic Panel Stat Lactate (Lactic Acid) Stat Lipase Stat Magnesium Stat NT-proBNP (BNP-Adult 18+) Stat PTT Partial Thromboplastin Gregory Stat Prothrombin Time INR Stat Troponin & CK Cardiac Panel Stat 12/31/24 13:17 XR chest 1V Stat EKG-12 Lead Stat RT Consult Eval and Treat NOW Discontinued Medications Aspirin (Aspirin 81 Mg Chew Tab) 324 mg PO NOW ONE Stop: 12/31/24 13:18 Last Admin: 12/31/24 13:19 Dose: Not Given Documented By: BALA Propofol (Propofol 200 Mg/20 Ml Vial) 90 mg 1 mg/kg (90 mg) IV NOW ONE Stop: 12/31/24 16:16 Last Admin: 12/31/24 17:05 Dose: 50 mg Documented By: MODESTA Vital Signs Vital signs: Vital Signs - 8 hr 12/31/24 13:08 12/31/24 13:09 12/31/24 13:09 Temperature Pulse Rate 112 H 101 H Respiratory Rate 16 12 Blood Pressure 133/88 Pulse Oximetry 91 97 Oxygen Delivery Method 12/31/24 13:13 12/31/24 13:21 12/31/24 13:21 Temperature 98 F Pulse Rate 125 H 109 H Respiratory Rate 17 16 Blood Pressure 133/83 133/82 Pulse Oximetry 99 98 Oxygen Delivery Method Room Air 12/31/24 13:30 12/31/24 13:30 12/31/24 14:00 Temperature Pulse Rate 91 H 82 Respiratory Rate 18 20 Blood Pressure 134/78 Pulse Oximetry 94 96 Oxygen Delivery Method 12/31/24 14:00 12/31/24 14:22 12/31/24 14:22 Temperature Pulse Rate 82 Respiratory Rate 20 Blood Pressure 123/83 132/77 Pulse Oximetry 97 Oxygen Delivery Method 12/31/24 14:30 12/31/24 14:30 12/31/24 15:02 Temperature Pulse Rate 85 93 H Respiratory Rate 17 18 Blood Pressure 124/76 Pulse Oximetry 96 96 Oxygen Delivery Method Room Air 12/31/24 15:03 12/31/24 15:03 12/31/24 15:30 Temperature Pulse Rate 90 82 Respiratory Rate 16 21 Blood Pressure 127/81 Pulse Oximetry 96 97 Oxygen Delivery Method 12/31/24 15:30 12/31/24 16:00 12/31/24 16:00 Temperature Pulse Rate 79 Respiratory Rate 18 Blood Pressure 115/79 122/81 Pulse Oximetry 95 Oxygen Delivery Method 12/31/24 16:37 12/31/24 16:39 12/31/24 16:39 Temperature Pulse Rate 72 73 Respiratory Rate 18 Blood Pressure 114/83 Pulse Oximetry 97 98 Oxygen Delivery Method 12/31/24 16:57 12/31/24 16:57 12/31/24 17:00 Temperature 97.5 F L Pulse Rate 74 92 H Respiratory Rate 17 20 Blood Pressure 128/81 130/80 Pulse Oximetry 97 96 Oxygen Delivery Method 12/31/24 17:00 12/31/24 17:00 12/31/24 17:05 Temperature Pulse Rate 80 83 Respiratory Rate 17 Blood Pressure 130/80 Pulse Oximetry 97 98 Oxygen Delivery Method 12/31/24 17:05 12/31/24 17:10 12/31/24 17:11 Temperature 97.9 F Pulse Rate 48 L 51 L Respiratory Rate 14 18 Blood Pressure 133/77 149/76 H Pulse Oximetry 97 98 Oxygen Delivery Method 12/31/24 17:11 12/31/24 17:15 12/31/24 17:16 Temperature 97.3 F L Pulse Rate 48 L 46 L Respiratory Rate 20 14 Blood Pressure 149/76 H 136/80 Pulse Oximetry 97 98 Oxygen Delivery Method 12/31/24 17:16 12/31/24 17:20 12/31/24 17:20 Temperature 97.4 F L Pulse Rate 46 L 49 L Respiratory Rate 12 19 Blood Pressure 136/80 136/81 Pulse Oximetry 99 97 Oxygen Delivery Method 12/31/24 17:20 12/31/24 17:25 12/31/24 17:25 Temperature 97.6 F Pulse Rate 47 L 47 L Respiratory Rate 15 22 Blood Pressure 136/81 117/73 Pulse Oximetry 98 98 Oxygen Delivery Method 12/31/24 17:25 12/31/24 17:30 12/31/24 17:30 Temperature 97.6 F Pulse Rate 46 L 47 L Respiratory Rate 16 22 Blood Pressure 117/73 136/78 Pulse Oximetry 98 99 Oxygen Delivery Method 12/31/24 17:31 12/31/24 17:31 12/31/24 17:35 Temperature 97.6 F Pulse Rate 47 L 48 L Respiratory Rate 18 Blood Pressure 136/78 117/75 Pulse Oximetry 98 97 Oxygen Delivery Method 12/31/24 17:35 12/31/24 17:35 12/31/24 17:40 Temperature Pulse Rate 46 L 46 L Respiratory Rate 12 Blood Pressure 117/75 Pulse Oximetry 98 98 Oxygen Delivery Method 12/31/24 17:40 12/31/24 17:49 12/31/24 17:49 Temperature Pulse Rate 49 L Respiratory Rate 23 Blood Pressure 127/73 125/76 Pulse Oximetry 97 Oxygen Delivery Method 12/31/24 18:00 12/31/24 18:00 12/31/24 18:07 Temperature Pulse Rate 52 L 77 Respiratory Rate 24 18 Blood Pressure 128/81 Pulse Oximetry 98 Oxygen Delivery Method MDM - Arrhythmia/Palpitations Lab Data 12/31/24 13:15 12/31/24 13:15 Labs: Lab Results 12/31/24 Range/Units 13:15 WBC 5.5 (4.5-11.0) X10^3/uL RBC 4.59 (4.5-5.9) X10^6/uL Hgb 14.5 (13.5-17.5) g/dL Hct 41.9 (41-53) % MCV 91.3 (80-100) fL MCH 31.6 (26-34) PG MCHC 34.6 (30-36) % RDW 13.7 (11.6-14.8) % Plt Count 227 (150-400) X10^3/uL Neut % (Auto) 77.6 H (50-75) % Lymph % (Auto) 11.8 L (25-40) % [place] % (Auto) 9.1 (3-14) % Eos % (Auto) 0.9 L (2-4) % Baso % (Auto) 0.6 (0-2) % Neut # (Auto) 4300 (4155-4347) /uL Lymph # (Auto) 600 L (0996-3347) /uL [place] # (Auto) 500 (0-900) /uL Eos # (Auto) 0 (0-450) /uL Baso # (Auto) 0 (0-100) /uL PT 11.8 (9.4-12.5) SECONDS INR 1.0 (0.9-1.3) APTT 36 (25.1-36.5) SECONDS Sodium 134 L (137-145) mmol/L Potassium 3.9 (3.4-5.1) mmol/L Chloride 102 (98-107) mmol/L Carbon Dioxide 24 (22-32) mmol/L BUN 14 (9-20) mg/dL Creatinine 0.97 (0.66-1.25) mg/dL Estimated GFR > 60 (>60) mL/min BUN/Creatinine Ratio 14.4 (6-22) Glucose 98 (70-99) mg/dL Lactate 1.2 (0.7-2.1) mmol/L Calcium 9.5 (8.4-10.2) mg/dL Magnesium 1.7 (1.6-2.3) mg/dL Total Bilirubin 0.5 (0.2-1.3) mg/dL AST 28 (17-59) IU/L ALT 19 (<50) IU/L Alkaline Phosphatase 57 (38-126) U/L Total Creatine Kinase 75 (55-170) U/L Troponin I < 0.012 (0.01-0.034) ng/mL NT-Pro-B Natriuret Pep 128 H (<125) pg/mL Total Protein 7.2 (6.3-8.2) g/dL Albumin 4.6 (3.5-5.0) g/dL Globulin 2.6 (1.7-4.1) g/dL Albumin/Globulin Ratio 1.8 (1.0-2.8) Lipase 113 (23-300) U/L Imaging Data Chest x-ray: Radiologist's Impresson: PROCEDURE: XR CHEST 1V INDICATIONS: Chest Pain TECHNIQUE: One view of the chest was acquired. COMPARISON: [facility], CR, XR CHEST 1V, 08/12/2024, 20:47. [facility], CR, XR CHEST 1V, 07/28/2024, 16:32. FINDINGS: Surgical changes and devices: None. Lungs and pleura: Lungs are clear. No pleural effusions or pneumothorax. Mediastinum: Mediastinal contours appear normal. Heart size is normal. Bones and chest wall: No suspicious bony lesions. Overlying soft tissues appear unremarkable. IMPRESSION: No acute cardiopulmonary abnormality is seen. Dictated by: Ashish Saavedra M.D. on 12/31/2024 at 13:37 ECG Data Attestation: I personally reviewed and interpreted this ECG as follows: Interpretation: Atrial fibrillation rate 95 no ischemia Repeat EKGs shows sinus rhythm rate 53 MT interval 152 QRS [address] changes no ischemia MDM Narrative Medical decision making narrative: Patient is a 64-year-old male history of paroxysmal atrial fibrillation presenting today with AFib. He was currently rate controlled but symptomatic. Has not missed a dose of his Pradaxa no contraindications for cardioversion. Blood work has been reviewed No leukocytosis no anemia No electrolyte abnormality no SIMON Troponin is negative BNP 128 Chest x-ray no acute cardiopulmonary process EKGs shows rate controlled atrial fibrillation Repeat EKGs has a sinus rhythm Patient tolerated procedure well. Blood work is overall reassuring recommend he continue to take his medication as prescribed he has Cardiology to follow up with. 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 am glad that you are feeling better *Continue to take medications as directed *Follow up with your primary care provider in 2-3 days or call [phone] *Return to ER if you should have chest pain palpitations shortness of breath or any new, worsening or concerning symptoms Prescriptions: No Action metformin 500 mg tablet 500 mg PO BID rosuvastatin 10 mg tablet 10 mg PO ONCE PM naltrexone 4.5 mg Capsule 4.5 mg PO BEDTIME dabigatran etexilate 150 mg capsule 150 mg PO BID Qty: 60 2RF famotidine 40 mg tablet 40 mg PO BID Qty: 60 2RF Referrals: Domi Sloan MD [Primary Care Provider] - Stand Alone Forms: Patient Portal/API/Survey
[2024-12-31] MEDS: propofoL 200 MG/20 ML VIAL 90 MG IV (17:05)
--- NOTE | 2024-12-31 17:14 | EKG_ITS ---
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
== END 2024-12-31 18:10 | disposition home or self-care (01) ==
PROVIDERS: Emergency Provider Emergency Medicine; PCP Family Medicine
DX: I48.91 Unspecified atrial fibrillation (principal); Z79.01 Long term (current) use of anticoagulants; R07.9 Chest pain, unspecified
CPT/HCPCS: 36415; 71045; 80053; 82550; 83605; 83690; 83735; 83880; 84484; 85025; 85610; 85730; 92960; 93005; 93010; 99152; 99285; J2704

== ENCOUNTER → 2025-02-05 07:53 | Outpatient (CLI) | payer MEDICARE, OTHER, SELFPAY ==
[2024-08-13 03:27] VITALS: BMI 27.2
== END ==
LOC: LAB 07:53
PROVIDERS: PCP Family Medicine; Visit Provider Chiropractor
DX: R30.0 Dysuria (principal)
CPT/HCPCS: 87086

== ENCOUNTER 2025-03-31 01:38 | Emergency (ER) | payer MEDICARE, OTHER, SELFPAY ==
[2024-08-13 03:27] VITALS: BMI 27.2
[2025-03-31] VITALS (13 sets, daily range): BP systolic 109–145; BP diastolic 69–84; PULSE 52–106; RESP 13–34; TEMP 36.4–36.7; O2SAT 92–99; BMI 27.2
--- NOTE | 2025-03-31 01:44 | EKG_ITS ---
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
--- NOTE | 2025-03-31 01:44 | ED.ARRPALP ---
HPI - Arrhythmia/Palpitations General Chief Complaint: Chest Pain Stated Complaint: Possible A fib, Chest Pain, SOB Time Seen by Provider: 03/31/25 01:41 History of Present Illness HPI narrative: Patient is a 65-year-old male with a past medical history of AFib on metoprolol and Eliquis comes into the ED from home for evaluation of palpitations shortness of breath chest pressure, states it started at around 10 p.m. yesterday states it is feels similar to when he had AFib, he states that he is supposed to have an ablation in the future, he denies any other symptoms at this time. Been compliant with his medications Related Data Home Medications ?Medication ?Instructions ?Recorded ?Confirmed metformin 500 mg tablet 500 mg PO BID 03/01/24 03/31/25 naltrexone 4.5 mg capsule 4.5 mg PO BEDTIME 03/01/24 03/31/25 rosuvastatin 10 mg tablet 10 mg PO ONCE PM 03/01/24 03/31/25 apixaban 5 mg tablet (Eliquis) 5 mg PO BID 02/05/25 03/31/25 buspirone 10 mg tablet 10 mg PO BID 02/05/25 03/31/25 tadalafil 20 mg tablet 20 mg PO DAILY 02/05/25 03/31/25 vibegron 75 mg tablet (Gemtesa) 75 mg PO DAILY 02/05/25 03/31/25 pantoprazole 40 mg tablet,delayed 40 mg PO DAILY 03/31/25 03/31/25 release Previous Rx's ?Medication ?Instructions ?Recorded dabigatran etexilate 150 mg capsule 150 mg PO BID #60 caps 08/13/24 famotidine 40 mg tablet 40 mg PO BID #60 tabs 08/13/24 Allergies Allergy/AdvReac Type Severity Reaction Status Date / Time No Known Drug Allergies Allergy Verified 03/31/25 01:55 Review of Systems Review of Systems Narrative: General: Denies fever, chills, weight loss HEENT: Denies headache, eye drainage, eye irritation, head trauma, sore throat, voice change Cardiovascular: Positive chest pain, palpitations, tachycardia Respiratory: Positive shortness of breath, denies cough, wheeze, stridor GI/: Denies any abdominal pain, nausea, vomiting, diarrhea, bright red blood per rectum, melanotic stools, urinary frequency, urinary retention, dysuria, hematuria MSK: Denies any joint pain, muscle pains, swelling Skin: Denies any rashes, lesions, discoloration Neuro: Denies any headache, lightheadedness, dizziness, fainting, weakness Psych: Denies SI/HI Patient History Medical History Atrial fibrillation Diabetes Cervical fusion syndrome Hypercholesteremia HTN (hypertension) GERD (gastroesophageal reflux disease) Surgical History H/O hernia repair S/P hip replacement Social History household members: spouse Smoking Status: Former smoker alcohol intake: former alcohol intake frequency: a few times a week Exam Narrative Exam Narrative: General: Cooperative, well-developed, not in acute distress HEENT: Normocephalic, atraumatic, PERRLA, normal sclera, eyelids normal Neck: Active full range of motion, atraumatic Chest: Normal to inspection, negative crepitus, no overlying erythema ecchymosis Respiratory: Normal respiratory effort, not in acute respiratory distress, clear to auscultation bilaterally negative cough, wheeze, tachypnea, rhonchi, rales Cardiology: Tachycardic, irregularly irregular GI/: No tenderness to palpation, soft, non rigid, normal to inspection, exam deferred MSK: Full active range of motion in all 4 extremities, atraumatic, no tenderness to palpation of any bony prominences Skin: No rashes or lesions noted Neuro: Alert awake oriented x3, moves all 4 extremities spontaneously, cranial nerves intact, able to answer all questions appropriately follows commands appropriately Psych: Cooperative, negative suicidal or homicidal ideations Initial Vital Signs Initial Vital Signs: Vital Signs Pulse Rate 103 H 03/31/25 01:44 Respiratory Rate 17 03/31/25 01:44 Blood Pressure 140/82 03/31/25 01:44 Pulse Oximetry 98 03/31/25 01:44 Procedures Cardioversion Time of Cardioversion: 03:21 Consent Signed: Yes Indication: Symptomatic AFib Stability: Stable Number of attempts (shocks): 1 Joules used: 200 Procedural Sedation Time of procedure: 03:31 Consent signed: Yes Time out performed: Yes Indication: cardioversion ASA Class: II Mallampati Airway Classification: Class II Preparation: air sampling and monitoring applied, pulse oximeter, capnometry used, supplemental O2 applied, suction/airway equipment at bedside and IV secured IV Etomidate dose (mg): 5 ED Sedation Level: Moderate (Concious) Patient Tolerated Procedure: Well and No complications Complications: none Course Orders Ordered: ED Orders 03/31/25 01:46 XR chest 1V Stat 03/31/25 01:49 EKG-12 Lead Stat 03/31/25 01:50 Complete Blood Count AUTO DIFF Stat Comprehensive Metabolic Panel Stat Lipase Stat MAG [Magnesium] Stat Troponin & CK Cardiac Panel Stat 03/31/25 03:24 EKG-12 Lead Stat Discontinued Medications Etomidate (Etomidate 2 Mg/Ml 10 Ml Vial) 5 mg IV NOW ONE Stop: 03/31/25 03:04 Last Admin: 03/31/25 03:22 Dose: 5 mg Documented By: LADAN Sodium Chloride (Normal Saline 0.9%) 1,000 mls @ 1,000 mls/hr IV BOLUS ONE Stop: 03/31/25 02:45 Last Infusion: 03/31/25 03:47 Dose: Infused Documented By: Admin: 03/31/25 02:02 Dose: 1,000 mls/hr Documented By: LADAN Magnesium Sulfate (Magnesium Sulfate) 2 gm in 50 mls @ 150 mls/hr IV NOW ONE Stop: 03/31/25 02:10 Last Infusion: 03/31/25 02:28 Dose: Infused Documented By: LADAN Co-signed By: LUIS Admin: 03/31/25 02:03 Dose: 150 mls/hr Documented By: LADAN Co-signed By: LUIS Ondansetron HCl (Ondansetron 4 Mg/2 Ml Inj) 4 mg IV NOW ONE Stop: 03/31/25 01:56 Last Admin: 03/31/25 02:29 Dose: Not Given Documented By: LADAN Vital Signs Vital signs: Vital Signs - 8 hr 03/31/25 01:44 03/31/25 01:44 03/31/25 01:56 Temperature 97.6 F Pulse Rate 103 H 100 H Respiratory Rate 17 14 Blood Pressure 140/82 140/82 Pulse Oximetry 98 98 Oxygen Delivery Method Room Air Oxygen Flow Rate 03/31/25 02:00 03/31/25 02:00 03/31/25 02:32 Temperature Pulse Rate 81 106 H Respiratory Rate 34 H Blood Pressure 114/69 Pulse Oximetry 95 95 Oxygen Delivery Method Oxygen Flow Rate 03/31/25 03:04 03/31/25 03:10 03/31/25 03:10 Temperature Pulse Rate 87 75 Respiratory Rate 19 Blood Pressure 109/78 Pulse Oximetry 92 96 Oxygen Delivery Method Room Air Oxygen Flow Rate 03/31/25 03:15 03/31/25 03:15 03/31/25 03:20 Temperature 98.0 F Pulse Rate 60 87 Respiratory Rate 16 16 Blood Pressure 124/84 115/76 Pulse Oximetry 99 99 Oxygen Delivery Method Oxygen Flow Rate 03/31/25 03:20 03/31/25 03:20 03/31/25 03:23 Temperature Pulse Rate 87 54 L Respiratory Rate 16 20 Blood Pressure 115/76 143/84 H Pulse Oximetry 99 99 Oxygen Delivery Method Nasal Cannula Oxygen Flow Rate 2 2 03/31/25 03:25 03/31/25 03:25 03/31/25 03:30 Temperature Pulse Rate 54 L Respiratory Rate 20 Blood Pressure 143/84 H 145/76 H Pulse Oximetry 99 Oxygen Delivery Method Oxygen Flow Rate 03/31/25 03:30 03/31/25 03:35 03/31/25 03:35 Temperature Pulse Rate 53 L 53 L Respiratory Rate 17 13 Blood Pressure 119/78 Pulse Oximetry 99 97 Oxygen Delivery Method Room Air Oxygen Flow Rate 03/31/25 03:40 03/31/25 03:40 Temperature Pulse Rate 52 L Respiratory Rate 16 Blood Pressure 119/77 Pulse Oximetry 97 Oxygen Delivery Method Oxygen Flow Rate MDM - Arrhythmia/Palpitations Differential Diagnosis Differential diagnosis: Likely palpitations, anxiety, sinus tachycardia, artial fibrillation, artial flutter, ventricular premature beats, supraventricular tachycardia and other (Electrolyte abnormality) Lab Data 03/31/25 01:50 03/31/25 01:50 Labs: Lab Results 03/31/25 Range/Units 01:50 WBC 4.5 (4.5-11.0) X10^3/uL RBC 4.64 (4.5-5.9) X10^6/uL Hgb 14.7 (13.5-17.5) g/dL Hct 41.8 (41-53) % MCV 90.0 (80-100) fL MCH 31.7 (26-34) PG MCHC 35.2 (30-36) % RDW 13.1 (11.6-14.8) % Plt Count 231 (150-400) X10^3/uL Neut % (Auto) 62.2 (50-75) % Lymph % (Auto) 23.6 L (25-40) % Curry % (Auto) 11.2 (3-14) % Eos % (Auto) 2.4 (2-4) % Baso % (Auto) 0.6 (0-2) % Neut # (Auto) 2800 (1858-7490) /uL Lymph # (Auto) 1100 (9215-7096) /uL Curry # (Auto) 500 (0-900) /uL Eos # (Auto) 100 (0-450) /uL Baso # (Auto) 0 (0-100) /uL Sodium 137 (137-145) mmol/L Potassium 3.8 (3.4-5.1) mmol/L Chloride 102 (98-107) mmol/L Carbon Dioxide 27 (22-32) mmol/L BUN 16 (9-20) mg/dL Creatinine 0.86 (0.66-1.25) mg/dL Estimated GFR > 60 (>60) mL/min BUN/Creatinine Ratio 18.6 (6-22) Glucose 107 H (70-99) mg/dL Calcium 9.6 (8.4-10.2) mg/dL Magnesium 1.9 (1.6-2.3) mg/dL Total Bilirubin 0.3 (0.2-1.3) mg/dL AST 29 (17-59) IU/L ALT 17 (<50) IU/L Alkaline Phosphatase 57 (38-126) U/L Total Creatine Kinase 145 (55-170) U/L Troponin I < 0.012 (0.01-0.034) ng/mL Total Protein 7.6 (6.3-8.2) g/dL Albumin 4.6 (3.5-5.0) g/dL Globulin 3.0 (1.7-4.1) g/dL Albumin/Globulin Ratio 1.5 (1.0-2.8) Lipase 87 (23-300) U/L Imaging Data Chest x-ray: Radiologist's Impresson: [address] [place] [address] XRay Report Signed Patient: Ian Dahl MR#: [id number] : 1960 Acct:[id number] Age/Sex: 65 / M Date of Service: 03/31/25 Loc: ED Accession Number: [id number] Procedure: XR chest 1V Ordering Provider: Néstor Cohn D.O. PROCEDURE: XR CHEST 1V INDICATIONS: palpitations TECHNIQUE: One view of the chest was acquired. COMPARISON: [facility], CR, XR RIBS LEFT, 03/18/2025, 14:14. [facility], CR, XR CHEST 1V, 12/31/2024, 13:16. FINDINGS: Surgical changes and devices: None. Lungs and pleura: Lungs are clear. No pleural effusions or pneumothorax. Mediastinum: The cardiac contours are within normal limits. The aorta demonstrates calcification and tortuosity. Bones and chest wall: No suspicious bony lesions. Age-appropriate bony degenerative changes are seen. Mild dextroconvex scoliotic curvature is seen. Overlying soft tissues appear unremarkable. IMPRESSION: Portable chest within normal limits for age. ECG Data Interpretation: EKG interpreted ED physician atrial fibrillation 99 beats per minute QTC [address] changes no STEMI Post cardioversion EKG: Interpreted by ED physician, sinus bradycardia at 56 beats per minute QTC 440, normal axis nonspecific ST changes no STEMI MDM Narrative Medical decision making narrative: Patient is a 65-year-old male with a past medical history of AFib on metoprolol and Eliquis, diabetes, hypertension hyperlipidemia presenting for palpitations chest pressure shortness breath states that he feels like he is in AFib this started at 10:00 p.m. yesterday, he states that he is supposed to have a ablation in the near future, he states that he was seen here in December for similar symptoms and had a cardioversion. At time of evaluation patient hemodynamically stable, EKG rate controlled but in AFib. Patient had lab work imaging. Chest x-ray without any acute cardiopulmonary abnormality, lab work did not show any signs of leukocytosis, Chem panel was unremarkable, troponin negative. At a risk and benefit discussion with the patient in regards to cardioversion given the fact that he at this time does not require/meet urgent/emergent cardioversion, however he states that he is very symptomatic, he states that he has normal resting heart rates in the 40s and the fact that it is now in the 80s he feels like he needs the cardioversion. Consent was obtained. Patient had cardioversion with 5 mg of etomidate patient had 200 joules cardioversion, with successful cardioversion into sinus bradycardia. Patient was able to pass p.o. challenge here in the emergency department, patient was given strict return precautions informed to follow up with Cardiology and primary care in outpatient setting verbalized understanding of this and agrees to being discharged home with outpatient follow up Discharge Plan Departure Patient Disposition: Home Clinical Impression: A-fib Instructions: DI for Atrial Fibrillation Activity Restrictions/Additional Instructions: Please follow up with your inspector metal can and your primary care doctor Please read the discharge instructions sheet carefully and bring all papers to all doctor follow-up visits, as it may contain information that your doctor may want to see. Disease processes change and evolve, if your symptoms worsen or if you develop any new symptoms that are concerning to you please return for evaluation. Your evaluation today does not show any evidence of any life-threatening/serious illnesses requiring admission to the hospital or surgery. Please follow-up with your doctor for re-evaluation in approximately 1 day. Seek immediate medical attention for any worrisome symptoms. *If you do not have a primary care provider please contact the [facility] Resource line at [phone]. They will ask some questions about your medical history and help get you set up with a doctor in the community. Prescriptions: No Action buspirone 10 mg tablet 10 mg PO BID tadalafil 20 mg tablet 20 mg PO DAILY Eliquis 5 mg tablet 5 mg PO BID Gemtesa 75 mg tablet 75 mg PO DAILY metformin 500 mg tablet 500 mg PO BID rosuvastatin 10 mg tablet 10 mg PO ONCE PM naltrexone 4.5 mg Capsule 4.5 mg PO BEDTIME dabigatran etexilate 150 mg capsule 150 mg PO BID Qty: 60 2RF famotidine 40 mg tablet 40 mg PO BID Qty: 60 2RF pantoprazole 40 mg tablet,delayed release (DR/EC) 40 mg PO DAILY Referrals: Domi Sloan MD [Primary Care Provider, Family Practice] Stand Alone Forms: Patient Portal/API
--- NOTE | 2025-03-31 01:46 | DI.RAD.S_ITS ---
PROCEDURE: XR CHEST 1V INDICATIONS: palpitations TECHNIQUE: One view of the chest was acquired. COMPARISON: [facility], CR, XR RIBS LEFT, 03/18/2025, 14:14. [facility], CR, XR CHEST 1V, 12/31/2024, 13:16. FINDINGS: Surgical changes and devices: None. Lungs and pleura: Lungs are clear. No pleural effusions or pneumothorax. Mediastinum: The cardiac contours are within normal limits. The aorta demonstrates calcification and tortuosity. Bones and chest wall: No suspicious bony lesions. Age-appropriate bony degenerative changes are seen. Mild dextroconvex scoliotic curvature is seen. Overlying soft tissues appear unremarkable. IMPRESSION: Portable chest within normal limits for age. Dictated by: Timi Tee M.D. on 03/31/2025 at 1:05 Approved by: Timi Tee M.D. on 03/31/2025 at 1:06
[2025-03-31 01:58] LABS: Add Manual Diff / Slide Review NO; Hematocrit 41.8 % (41-53); Hemoglobin 14.7 g/dL (13.5-17.5); Lymphocytes Absolute Auto 1100 /uL (1100-4500); Mean Corpuscular HGB Conc 35.2 % (30-36); Mean Corpuscular Hemoglobin 31.7 PG (26-34); Mean Corpuscular Volume 90.0 fL (80-100); Platelet Count 231 X10^3/uL (150-400)
[2025-03-31] MEDS: SODIUM CHLORIDE 0.9% 1,000 ML 1000 ML IV (02:02)
[2025-03-31] MEDS: MAGNESIUM SULFATE 2 GM/50 ML PIGGYBACK IV (02:03)
[2025-03-31 02:15] LABS: Alanine Aminotransferase 17 IU/L (<50); Albumin 4.6 g/dL (3.5-5.0); Albumin Globulin Ratio 1.5 (1.0-2.8); Alkaline Phosphatase 57 U/L (38-126); Blood Urea Nitrogen 16 mg/dL (9-20); Calcium 9.6 mg/dL (8.4-10.2); Carbon Dioxide 27 mmol/L (22-32); Chloride 102 mmol/L (98-107); Creatine Kinase 145 U/L (55-170); Estimated Glomerular Filt Rate > 60 mL/min (>60); Globulin 3.0 g/dL (1.7-4.1); Glucose 107 mg/dL (70-99); HEMOLYSIS 17 (0-50); Lipase 87 U/L (23-300); Potassium 3.8 mmol/L (3.4-5.1); Sodium 137 mmol/L (137-145); Total Protein 7.6 g/dL (6.3-8.2)
[2025-03-31 02:26] LABS: Troponin I < 0.012 ng/mL (0.01-0.034)
[2025-03-31 02:35] LABS: Magnesium 1.9 mg/dL (1.6-2.3)
[2025-03-31] MEDS: ETOMIDATE 2 MG/ML 10 ML VIAL 5 MG IV (03:22)
--- NOTE | 2025-03-31 03:27 | EKG_ITS ---
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
--- NOTE | 2025-03-31 04:04 | PC.NURSE ---
Pt is alert, AOx4 post procedural sedation for cardioversion. Pt is able to tolerate PO fluids, no c/o nausea, pain or discomfort. MD notified.
== END 2025-03-31 04:14 | disposition home or self-care (01) ==
PROVIDERS: Emergency Provider Student in an Organized Health Care Education/Training Program; PCP Family Medicine
DX: I48.91 Unspecified atrial fibrillation (principal); I10 Essential (primary) hypertension; Z79.01 Long term (current) use of anticoagulants; Z87.891 Personal history of nicotine dependence
CPT/HCPCS: 36415; 71045; 80053; 82550; 83690; 83735; 84484; 85025; 92960; 93005; 96361; 96365; 99152; 99285; J2405; J3475

== ENCOUNTER 2025-05-28 23:59 | Emergency (ER) | payer MEDICARE, OTHER, SELFPAY ==
[2024-08-13 03:27] VITALS: BMI 27.2
[2025-05-29] VITALS (15 sets, daily range): BP systolic 131–189; BP diastolic 73–100; PULSE 49–68; RESP 10–35; TEMP 36.5; O2SAT 94–99; BMI 26.6
--- NOTE | 2025-05-29 00:12 | DI.RAD.S_ITS ---
PROCEDURE: XR CHEST 1V INDICATIONS: Chest Pain TECHNIQUE: One view of the chest was acquired. COMPARISON: [facility], CR, XR CHEST 1V, 03/31/2025, 1:47. [facility], CR, XR CHEST 1V, 12/31/2024, 13:16. FINDINGS: Surgical changes and devices: None. Lungs and pleura: Lungs are clear. No pleural effusions or pneumothorax. Mediastinum: Mediastinal contours appear normal. Heart size is normal. Bones and chest wall: No suspicious bony lesions. Overlying soft tissues appear unremarkable. IMPRESSION: No acute cardiopulmonary abnormality is seen. Dictated by: Jair Stevens M.D. on 05/29/2025 at 0:44 Approved by: Jair Stevens M.D. on 05/29/2025 at 0:44
--- NOTE | 2025-05-29 00:16 | EKG_ITS ---
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
[2025-05-29] MEDS: ONDANSETRON 4 MG/2 ML INJ IV ×2 (00:30→05:28)
[2025-05-29 00:39] LABS: Add Manual Diff / Slide Review NO; Hematocrit 40.5 % (41-53); Hemoglobin 13.8 g/dL (13.5-17.5); Lymphocytes Absolute Auto 900 /uL (1100-4500); Mean Corpuscular HGB Conc 34.0 % (30-36); Mean Corpuscular Hemoglobin 30.9 PG (26-34); Mean Corpuscular Volume 90.9 fL (80-100); Platelet Count 217 X10^3/uL (150-400)
[2025-05-29 00:47] LABS: INR 1.0 (0.9-1.3); Prothrombin Time 11.8 SECONDS (9.4-12.5)
[2025-05-29 00:50] LABS: PTT Partial Thromboplastin Tim 33 SECONDS (25.1-36.5)
[2025-05-29 00:51] LABS: Alanine Aminotransferase 16 IU/L (<50); Albumin 4.4 g/dL (3.5-5.0); Albumin Globulin Ratio 1.5 (1.0-2.8); Alkaline Phosphatase 53 U/L (38-126); Blood Urea Nitrogen 15 mg/dL (9-20); Calcium 9.5 mg/dL (8.4-10.2); Carbon Dioxide 27 mmol/L (22-32); Chloride 100 mmol/L (98-107); Creatine Kinase 81 U/L (55-170); Estimated Glomerular Filt Rate > 60 mL/min (>60); Globulin 2.9 g/dL (1.7-4.1); Glucose 98 mg/dL (70-99); HEMOLYSIS < 15 (0-50); Lipase 93 U/L (23-300); Magnesium 1.7 mg/dL (1.6-2.3); Potassium 3.6 mmol/L (3.4-5.1); Sodium 135 mmol/L (137-145); Total Protein 7.3 g/dL (6.3-8.2)
--- NOTE | 2025-05-29 00:57 | ED.CHESTPAIN ---
HPI - Chest Pain General Chief Complaint: Chest Pain Stated Complaint: Chest pain, Light headedness, chills, N Time Seen by Provider: 05/29/25 00:44 Source: patient Mode of arrival: Ambulatory Limitations: no limitations History of Present Illness HPI narrative: 65-year-old male with history of prostate cancer, GERD, atrial fibrillation for which he takes Eliquis anticoagulation, status post recent cardiac ablation procedure Dr. Mara Ladd on 05/20/2025 that seemed to go well, intermittent dizziness since that time, last evening 9:30 p.m. while at rest watching television with his had onset of nausea and bilateral anterior chest discomfort that was not sharp, non-radiating. No palpitation or racing heart like symptoms. No passing out. No diaphoresis. He took Tums medications, discomfort seemed to be diminished but still present. No prior coronary artery vessel disease known. History of diabetes, history of hyperlipidemia, no hypertension, nonsmoker. 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 Nonpleuritic chest pain, no skin bruising or redness to chest. Related Data Home Medications ?Medication ?Instructions ?Recorded ?Confirmed metformin 500 mg tablet 500 mg PO BID 03/01/24 05/29/25 naltrexone 4.5 mg capsule 4.5 mg PO BEDTIME 03/01/24 05/29/25 rosuvastatin 10 mg tablet 10 mg PO ONCE PM 03/01/24 05/29/25 apixaban 5 mg tablet (Eliquis) 5 mg PO BID 02/05/25 05/29/25 tadalafil 20 mg tablet 20 mg PO DAILY 02/05/25 05/29/25 vibegron 75 mg tablet (Gemtesa) 75 mg PO DAILY 02/05/25 05/29/25 pantoprazole 40 mg tablet,delayed 40 mg PO DAILY 03/31/25 05/29/25 release Allergies Allergy/AdvReac Type Severity Reaction Status Date / Time No Known Drug Allergies Allergy Verified 05/29/25 00:04 Patient History Medical History Atrial fibrillation Diabetes Cervical fusion syndrome Hypercholesteremia HTN (hypertension) GERD (gastroesophageal reflux disease) Surgical History H/O hernia repair S/P hip replacement Social History household members: spouse Smoking Status: Former smoker alcohol intake: former Smoking Status: Former smoker alcohol intake frequency: a few times a week Exam Narrative Exam Narrative: GENERAL: Well-developed patient, in mild distress. HEAD: Atraumatic. Normocephalic. EYES: Pupils equal round and reactive. Extraocular motions intact. No scleral icterus. No injection or drainage. ENT: Nose without bleeding, purulent drainage. Throat without erythema, tonsillar hypertrophy or exudate. Airway patent. NECK: Trachea midline. Non tender CARDIOVASCULAR: Regular rate and rhythm without murmurs, gallops, or rubs. RESPIRATORY: Clear to auscultation. Breath sounds equal bilaterally. No wheezes, rales, or rhonchi. GASTROINTESTINAL: Abdomen soft, non-tender, nondistended. EXTREMITIES: No edema or joint tenderness. BACK: Nontender without deformity or crepitance. No flank tenderness. NEURO: AOx3. Motor functions grossly nonfocal. SKIN: No rash or erythema of visible areas Initial Vital Signs Initial Vital Signs: Vital Signs Temperature 97.7 F 05/29/25 00:06 Pulse Rate 58 L 05/29/25 00:06 Respiratory Rate 15 05/29/25 00:06 Blood Pressure 189/100 H 05/29/25 00:06 Pulse Oximetry 99 05/29/25 00:06 Oxygen Delivery Method Room Air 05/29/25 00:06 Scores HEART Score Heart Score history: Slightly Suspicious Heart Score EKG: Normal Heart Score Age: > or = 65 years old Heart Score risk factors: 1-2 risk factors Heart Score troponin: < or = to normal limit Heart Score Total: 3 Course Orders Ordered: Discontinued Medications Al Hydrox/Mg Hydrox/Simethicone (Mag Hydrox/Alum/Simeth 30 Ml Udc) 30 ml PO NOW ONE Stop: 05/29/25 01:45 Last Admin: 05/29/25 02:01 Dose: 30 ml Documented By: WHIT Aspirin (Aspirin 81 Mg Chew Tab) 324 mg PO NOW ONE Stop: 05/29/25 00:13 Last Admin: 05/29/25 00:17 Dose: Not Given Documented By: Aspirin (Aspirin Ec 325 Mg Tablet) 325 mg PO NOW ONE Stop: 05/29/25 01:35 Last Admin: 05/29/25 01:39 Dose: 325 mg Documented By: Sodium Chloride (Normal Saline 0.9%) 1,000 mls @ 1,000 mls/hr IV BOLUS ONE Stop: 05/29/25 04:37 Last Infusion: 05/29/25 05:10 Dose: Infused Documented By: Admin: 05/29/25 04:04 Dose: 1,000 mls/hr Documented By: LEO Ondansetron HCl (Ondansetron 4 Mg/2 Ml Inj) 4 mg IV NOW PRN PRN Reason: Nausea And Vomiting Last Admin: 05/29/25 00:30 Dose: 4 mg Documented By: Ondansetron HCl (Ondansetron 4 Mg Odt) 4 mg PO NOW PRN PRN Reason: Nausea And Vomiting Ondansetron HCl (Ondansetron 4 Mg/2 Ml Inj) 4 mg IV NOW ONE Stop: 05/29/25 05:21 Last Admin: 05/29/25 05:28 Dose: 4 mg Documented By: WHIT Vital Signs Vital signs: Vital Signs - 8 hr 05/29/25 00:06 05/29/25 00:26 05/29/25 00:27 Temperature 97.7 F Pulse Rate 58 L 55 L 56 L Respiratory Rate 15 10 L Blood Pressure 189/100 H Pulse Oximetry 99 Oxygen Delivery Method Room Air 05/29/25 00:27 05/29/25 00:30 05/29/25 00:30 Temperature Pulse Rate 55 L Respiratory Rate 11 L Blood Pressure 188/98 H 154/91 H Pulse Oximetry Oxygen Delivery Method 05/29/25 01:00 05/29/25 01:00 05/29/25 01:30 Temperature Pulse Rate 57 L 54 L Respiratory Rate 12 13 Blood Pressure 136/77 Pulse Oximetry Oxygen Delivery Method 05/29/25 01:30 05/29/25 02:00 05/29/25 02:00 Temperature Pulse Rate 57 L Respiratory Rate 15 Blood Pressure 137/74 131/81 Pulse Oximetry Oxygen Delivery Method 05/29/25 02:30 05/29/25 02:30 05/29/25 03:00 Temperature Pulse Rate 60 55 L Respiratory Rate 14 Blood Pressure 135/73 Pulse Oximetry Oxygen Delivery Method 05/29/25 03:00 05/29/25 03:30 05/29/25 03:30 Temperature Pulse Rate 51 L Respiratory Rate 18 Blood Pressure 137/80 139/77 Pulse Oximetry Oxygen Delivery Method 05/29/25 04:08 05/29/25 04:11 05/29/25 04:11 Temperature Pulse Rate 51 L 50 L Respiratory Rate 35 H Blood Pressure 148/73 H Pulse Oximetry 94 97 Oxygen Delivery Method 05/29/25 04:30 05/29/25 04:30 05/29/25 05:05 Temperature Pulse Rate 49 L 56 L Respiratory Rate 16 27 H Blood Pressure 150/84 H Pulse Oximetry 97 97 Oxygen Delivery Method Room Air MDM - Chest Pain Lab Data Lab results narrative: White blood cell count 6300, hemoglobin 13.8, platelets adequate. Glucose 98. Normal renal function, serum CO2, potassium. Serum sodium 135 slight low. Liver functions and lipase normal. Troponin 0.090 measurable indeterminate range. BNP not elevated. COVID influenza RSV negative. 05/29/25 00:25 05/29/25 00:25 Labs: Lab Results 05/29/25 05/29/25 05/29/25 Range/Units 00:25 01:03 02:36 WBC 6.3 (4.5-11.0) X10^3/uL RBC 4.46 L (4.5-5.9) X10^6/uL Hgb 13.8 (13.5-17.5) g/dL Hct 40.5 L (41-53) % MCV 90.9 (80-100) fL MCH 30.9 (26-34) PG MCHC 34.0 (30-36) % RDW 13.5 (11.6-14.8) % Plt Count 217 (150-400) X10^3/uL Neut % (Auto) 73.3 (50-75) % Lymph % (Auto) 13.7 L (25-40) % Daniels % (Auto) 10.8 (3-14) % Eos % (Auto) 1.7 L (2-4) % Baso % (Auto) 0.5 (0-2) % Neut # (Auto) 4600 (7256-8785) /uL Lymph # (Auto) 900 L (7033-0633) /uL Daniels # (Auto) 700 (0-900) /uL Eos # (Auto) 100 (0-450) /uL Baso # (Auto) 0 (0-100) /uL PT 11.8 (9.4-12.5) SECONDS INR 1.0 (0.9-1.3) APTT 33 (25.1-36.5) SECONDS Sodium 135 L (137-145) mmol/L Potassium 3.6 (3.4-5.1) mmol/L Chloride 100 (98-107) mmol/L Carbon Dioxide 27 (22-32) mmol/L BUN 15 (9-20) mg/dL Creatinine 1.00 (0.66-1.25) mg/dL Estimated GFR > 60 (>60) mL/min BUN/Creatinine Ratio 15.0 (6-22) Glucose 98 (70-99) mg/dL Calcium 9.5 (8.4-10.2) mg/dL Magnesium 1.7 (1.6-2.3) mg/dL Total Bilirubin 0.3 (0.2-1.3) mg/dL AST 27 (17-59) IU/L ALT 16 (<50) IU/L Alkaline Phosphatase 53 (38-126) U/L Total Creatine Kinase 81 (55-170) U/L Troponin I 0.090 H 0.082 H (0.01-0.034) ng/mL NT-Pro-B Natriuret Pep 85 (<125) pg/mL Total Protein 7.3 (6.3-8.2) g/dL Albumin 4.4 (3.5-5.0) g/dL Globulin 2.9 (1.7-4.1) g/dL Albumin/Globulin Ratio 1.5 (1.0-2.8) Lipase 93 (23-300) U/L SARS-CoV-2 (PCR) Negative (Negative) Influenza A (RT-PCR) Flu a negative (NEGATIVE) Influenza B (RT-PCR) Flu b negative (NEGATIVE) RSV (PCR) Negative (Negative) ECG Data Attestation: I personally reviewed and interpreted this ECG as follows: Interpretation: 0016, sinus bradycardia with rate of 57, no obvious ST segment elevation or depression changes. NC 142, QRS 110, QTC 422. MDM Narrative Medical decision making narrative: 65-year-old male with history of atrial fibrillation, now 8 days after cardiac ablation procedure, back on Eliquis, had chest discomfort anterior bilateral today. Was struck by a kicked soccer ball in the right anterior chest earlier today, without significant discomfort, no other trauma or new activities. EKG showed sinus bradycardia without obvious ischemic changes. History of GERD, Tums taken, symptoms seemed to be improving. HEART Score = 3. DDx consider ACS, CYRUS, complication of the ablation procedure, pneumonia, chest wall contusion, other. Chest x-ray labs pending. PO aspirin. 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 Chest x-ray no acute changes, see radiology report. Lab data: White blood cell count 6300, hemoglobin 13.8, platelets adequate. Glucose 98. Normal renal function, serum CO2, potassium. Serum sodium 135 slight low. Liver functions and lipase normal. Troponin 0.090 measurable indeterminate range. BNP not elevated. COVID influenza RSV negative. 0330, case discussed with cardiology Dr. Salazar, could consider mediastinitis complication of his recent ablation procedure, recommends CT chest imaging. If negative then he feels patient is stable for further workup as an outpatient, could then get cardiac stress testing as an outpatient if negative. Patient is taking his Eliquis postprocedure, seems less likely for pulmonary embolus but still possible. We will order CT angiogram chest to address both issues. CT angiogram chest. Impressions: ?No pulmonary embolism or aortic dissection. Aneurysmal dilatation of the ascending aorta which measures 4.7 cm in maximum anterior posterior dimension. Incidental findings detailed.. See tele radiology report. Med records review: 08/2024 echocardiogram report located, there is reference to mildly dilated ascending aorta, no dimensions mentioned. Med records review: 07/2024 CT chest with contrast report located, no thoracic aortic aneurysm. Med records review: 05/20/25 Echocardiogram transesophageal from ablation procedure from [facility], mentions ?the ascending aorta is mild-moderately enlarged. No dimensions mentioned. See printed report. Med records review: 08/13/2024 exercise cardiac perfusion study. Conclusion: ?I will call this study normal myocardial perfusion study with evidence of diaphragmatic tissue attenuation artifact, which got significantly improved during stress prone images. Good exercise tolerance. SALLY-14%. Patient achieved 93% of target heart rate. Peak blood pressure 186/100. No anginal symptoms. No significant arrhythmias. Overall low risk myocardial perfusion scan.? See report, interpreted by coach cleaner Dr. Mazariegos. Unclear if ascending aortic aneurysm is dynamic or even related to his recently resolved chest discomfort, but no aneurysm noted on CT July 2024. There seems to be aneurysmal ascending aorta change on CTA today with diameter 4.7 cm. We will reach out to Cardiothoracic surgery for disposition opinion. Patient has history of prostate cancer treated at [facility], patient and request we reach out to [facility]. We will send images to [facility]. 0500, case discussed with [facility] intake, await call back from Cardiothoracic surgery. CTA/CT images today and CT Chest from July 2024 requested to be sent to [facility] for review. 0600, case discussed with CT surgery at [facility] Dr Irving who was able to review CTA Chest and comparison CT Chest 07/2024 study, surgical intervention not indicated until in 5-5.5 cm but agrees that seems to be changing, we would like to see patient in the next couple of weeks for further evaluation in their clinic. Confirmed contact phone number in their records, they are coordinator should reach out to patient. Follow up with Cardiothoracic surgery at [facility] for ascending aneurysm follow up. Follow up with Dr. Mara HERNANDEZ coach cleaner as planned, and with his regular coach cleaner at [facility]. Advised to continue antacid treatments for now. Continue taking his Eliquis post ablation for his prior atrial fibrillation, not currently in atrial fibrillation. Discharged home with who concurred with DC and FU plans. Return precautions discussed. Critical Care Time Critical Care Time Critical Care Time: Yes Total Critical Care Time: 31 Attestation: The high probability of a clinically significant, sudden or life threatening deterioration of the [cardiopulmonary] system(s) required my full and direct attention, intervention and personal management. The aggregate critical care time was [31] minutes. This time is in addition to time spent performing reported procedures but includes the following: [x] Data Review and interpretation [x] Patient assessment and monitoring of vital signs [x] Documentation [x] Medication orders and management Discharge Plan Departure Patient Disposition: Home Clinical Impression: Chest pain Activity Restrictions/Additional Instructions: History of atrial fibrillation with multiple prior cardioversions, status post recent cardiac ablation procedure just over a week ago at [facility] by Dr. Terry felt to be successful, today at soccer struck by a kicked soccer ball anterior chest, no initial discomfort, later chest discomfort and nausea. EKG showed sinus bradycardia, no atrial fibrillation noted. Blood tests showed elevated troponin but not in positive range, indeterminate range noted and decreasing on repeat testing. Initial consultation with local coach cleaner Dr. Salazar advised CT chest screening to look for mediastinitis complication of your recent ablation procedure. CT angiogram of the chest was performed, there was no inflammatory change mentioned suggestive of mediastinitis, but 4.7 cm ascending aorta dilatation was noted. Prior CT chest from 07/2024 did not mentioned presence of any ascending aorta aneurysm dilatation. Mild-moderate ascending aortic aneurysm mentioned in dictations from cardiac echo August 2024, and on your recent transesophageal echocardiogram procedure note from ablation. Unclear significance of your ascending aorta aneurysm with regard to recent chest pain, might be an incidental finding. It is certainly possible you might have had acid reflux and/or chest wall injury from the kicked soccer ball as reasons for your discomfort. Dilatation of the ascending aortic aneurysm is important to follow, as it might be dynamic and changing, and at increased risk once greater than 4.5 cm for later rupture, though surgical interventions usually not until 5-5.5 cm dilatation if not rapidly changing. Case was discussed tonight with Cardiothoracic surgeon on-call at [facility] Dr. Irving, who we would like to have you evaluated in their Cardiothoracic surgery Clinic in the next couple of weeks, there team should reach out to you in contact hopefully later this week for more specific time appointment. Consider taking your antacids. Consider Tylenol as needed for chest wall discomfort if any. Continue your Eliquis and other chronic medications for now. Follow up with Dr. Terry your electrophysiology cardiologists as planned. Further cardiac stress testing or angiography as an outpatient for now recommended by Dr. Salazar of Cardiology after initial consultation, if no mediastinitis was confirmed. Coordinate further with your general cardiologists once above consultations have been completed. Return earlier to this/nearest emergency department for any change worsening symptoms or any concerns prior. Prescriptions: No Action tadalafil 20 mg tablet 20 mg PO DAILY Eliquis 5 mg tablet 5 mg PO BID Gemtesa 75 mg tablet 75 mg PO DAILY metformin 500 mg tablet 500 mg PO BID rosuvastatin 10 mg tablet 10 mg PO ONCE PM naltrexone 4.5 mg Capsule 4.5 mg PO BEDTIME pantoprazole 40 mg tablet,delayed release (DR/EC) 40 mg PO DAILY Referrals: Domi Sloan MD [Primary Care Provider, Family Practice] Stand Alone Forms: Patient Portal/API
[2025-05-29 01:03] LABS: NT-proBNP (BNP-Adult 18+) 85 pg/mL (<125); Troponin I 0.090 ng/mL (0.01-0.034)
[2025-05-29] MEDS: ASPIRIN EC 325 MG TABLET PO (01:39)
[2025-05-29 01:49] LABS: Influenza A - CEPHEID Flu A NEGATIVE (NEGATIVE); Influenza B - CEPHEID Flu B NEGATIVE (NEGATIVE)
[2025-05-29 01:58] LABS: COVID-19 CEPHEID 4-PLEX PCR Negative (Negative)
[2025-05-29] MEDS: MAG HYDROX/ALUM/SIMETH 30 ML UDC PO (02:01)
[2025-05-29 03:14] LABS: Troponin I 0.082 ng/mL (0.01-0.034)
--- NOTE | 2025-05-29 03:37 | DI.CT.S_ITS ---
PROCEDURE: CT ANGIO CHEST PE PROTOCOL INDICATIONS: POD#8 from cardiac ablation, chest pain TECHNIQUE: After the administration of intravenous contrast, 2 mm thick sections acquired from the pulmonary apices to the posterior costophrenic angles. 3-dimensional maximum intensity projection (MIP) coronal and sagittal reformats were then acquired through the thorax. For radiation dose reduction, the following was used: automated exposure control, adjustment of mA and/or kV according to patient size. COMPARISON: [facility], CT, CT CHEST W CON, 07/28/2024, 16:58. FINDINGS: Image quality: Diagnostic. Pulmonary arteries: Pulmonary arteries are normal in size, and demonstrate no intraluminal filling defects to suggest central pulmonary embolism. Lower Neck: No enlarged lymph nodes. Thyroid: No thyroid nodules which require sonographic follow up, per consensus guidelines. Axillae: No enlarged lymph nodes. Chest Wall: Unremarkable. Bones: Thoracic spondylosis. No aggressive osseous lesion. No fracture.. Lungs and Pleura: No pneumothorax or pleural effusions. No consolidation or suspicious nodules. Heart: Heart size is normal. No pericardial effusion. Thoracic Vessels: Ascending aortic aneurysm 4.7 centimeter in greatest dimension. Mediastinum and Nicky: No enlarged lymph nodes. Esophagus: No wall thickening. No hiatal hernia. Upper Abdomen: Subcentimeter hypoattenuating lesions in the liver which are too small to characterize but statistically likely to represent simple cysts. No follow-up is necessary if the patient is low risk for liver malignancy. IMPRESSION: No pulmonary embolus. No acute abnormality. Ascending aortic aneurysm. Dictated by: Leonardo Myers M.D. on 05/29/2025 at 8:21 Approved by: Leonardo Myers M.D. on 05/29/2025 at 8:28
[2025-05-29] MEDS: SODIUM CHLORIDE 0.9% 1,000 ML 1000 ML IV (04:04)
== END 2025-05-29 06:26 | disposition home or self-care (01) ==
PROVIDERS: Emergency Provider Emergency Medicine; PCP Family Medicine
DX: R07.9 Chest pain, unspecified (principal); Z79.01 Long term (current) use of anticoagulants; Z86.79 Personal history of other diseases of the circulatory system; Z85.46 Personal history of malignant neoplasm of prostate; W21.02XA Struck by soccer ball, initial encounter
CPT/HCPCS: 36415; 71045; 71275; 80053; 82550; 83690; 83735; 83880; 84484; 85025; 85610; 85730; 87637; 93005; 96361; 96374; 96376; 99284; 99291; J2405; J7030; Q9967

== ENCOUNTER 2025-07-22 19:06 | Emergency (ER) | payer MEDICARE, OTHER, SELFPAY ==
[2024-08-13 03:27] VITALS: BMI 27.2
[2025-07-22] VITALS (10 sets, daily range): BP systolic 126–168; BP diastolic 80–90; PULSE 54–75; RESP 16–21; TEMP 36.6; O2SAT 95–97; BMI 27.2
--- NOTE | 2025-07-22 19:17 | DI.RAD.S_ITS ---
PROCEDURE: XR CHEST 1V INDICATIONS: Chest Pain TECHNIQUE: One view of the chest was acquired. COMPARISON: [facility], CR, XR CHEST 1V, 05/29/2025, 0:23. FINDINGS: Surgical changes and devices: None. Lungs and pleura: Lungs are clear. No pleural effusions or pneumothorax. Mediastinum: Mediastinal contours appear normal. Heart size is normal. Bones and chest wall: No suspicious bony lesions. Overlying soft tissues appear unremarkable. IMPRESSION: No acute pulmonary process. Dictated by: Gaviota Dai M.D. on 07/22/2025 at 20:02 Approved by: Gaviota Dai M.D. on 07/22/2025 at 20:02
--- NOTE | 2025-07-22 19:19 | EKG_ITS ---
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
[2025-07-22 19:53] LABS: Add Manual Diff / Slide Review NO; Hematocrit 38.9 % (41-53); Hemoglobin 13.4 g/dL (13.5-17.5); Lymphocytes Absolute Auto 900 /uL (1100-4500); Mean Corpuscular HGB Conc 34.5 % (30-36); Mean Corpuscular Hemoglobin 31.0 PG (26-34); Mean Corpuscular Volume 89.8 fL (80-100); Platelet Count 232 X10^3/uL (150-400)
[2025-07-22 20:03] LABS: INR 1.0 (0.9-1.3); Prothrombin Time 11.4 SECONDS (9.4-12.5)
[2025-07-22 20:06] LABS: PTT Partial Thromboplastin Tim 32 SECONDS (25.1-36.5)
[2025-07-22 20:10] LABS: Alanine Aminotransferase 22 IU/L (<50); Albumin 4.4 g/dL (3.5-5.0); Albumin Globulin Ratio 1.6 (1.0-2.8); Alkaline Phosphatase 49 U/L (38-126); Blood Urea Nitrogen 13 mg/dL (9-20); Calcium 9.0 mg/dL (8.4-10.2); Carbon Dioxide 24 mmol/L (22-32); Chloride 100 mmol/L (98-107); Creatine Kinase 85 U/L (55-170); Estimated Glomerular Filt Rate > 60 mL/min (>60); Globulin 2.8 g/dL (1.7-4.1); Glucose 98 mg/dL (70-99); HEMOLYSIS 23 (0-50); Lipase 76 U/L (23-300); Magnesium 1.7 mg/dL (1.6-2.3); Potassium 4.1 mmol/L (3.4-5.1); Sodium 132 mmol/L (137-145); Total Protein 7.2 g/dL (6.3-8.2)
[2025-07-22 20:21] LABS: NT-proBNP (BNP-Adult 18+) 60 pg/mL (<125); Troponin I < 0.012 ng/mL (0.01-0.034)
[2025-07-22 22:30] LABS: Troponin I < 0.012 ng/mL (0.01-0.034)
--- NOTE | 2025-07-22 22:36 | DI.CT.S_ITS ---
PROCEDURE: CT ANGIO CHEST ABDOMEN PELVIS INDICATIONS: chest pain, known hx aortic aneurysm TECHNIQUE: Precontrast 5 mm thick sections acquired from the lung apices to the iliac crests. After the administration of intravenous contrast, 2.5 mm thick sections again acquired from the lung apices to the iliac crests. Maximum intensity projection (MIP) oblique sagittal and coronal reformats were then acquired. For radiation dose reduction, the following was used: automated exposure control. COMPARISON: None. FINDINGS: Image quality: Diagnostic. AORTA: The ascending thoracic aorta measures up to 4.6 cm in diameter, unchanged from prior dated 05/29/2025, when similarly remeasured. No acute aortic syndrome. CHEST: Lower Neck: No enlarged lymph nodes. Thyroid: No thyroid nodules which require sonographic evaluation. Axillae: No enlarged lymph nodes. Chest Wall: Unremarkable. Lungs and Pleura: No pneumothorax or pleural effusions. No consolidation or suspicious nodules. Heart: Heart size is normal. No pericardial effusion. Thoracic Vessels: Pulmonary arteries demonstrate normal size. Mediastinum and Nicky: No enlarged lymph nodes. Esophagus: No wall thickening. No hiatal hernia. ABDOMEN: Liver: No solid mass. Small cysts and additional subcentimeter hypodensities too small to fully characterize. Gallbladder: No radiopaque gallstones or wall thickening. Biliary ducts: No biliary dilation. Pancreas: No ductal dilation. Spleen: Size is within normal limits. Adrenal Glands: No adrenal nodules. Kidneys and Ureters: No hydronephrosis. No solid mass. No complex renal cystic lesion which requires follow up. Stomach and Bowel: Normal colonic caliber, without significant wall thickening. Normal appendix. Peritoneum: No abnormal intraperitoneal fluid. No free air. Ventral Wall: No hernia. Abdominal Nodes: No retroperitoneal or mesenteric adenopathy by size criteria. Vessels: Inferior vena cava is normal in size. PELVIS: Pelvic Organs: Unremarkable. Bladder: Unremarkable. Pelvic Nodes: No enlarged lymph nodes. Miscellaneous: Containing inguinal hernias. Bones: Bilateral hip arthroplasty hardware. Degenerative changes of the spine. No aggressive osseous lesion. IMPRESSION: No acute abnormality is seen in the chest, abdomen or pelvis. No acute aortic syndrome. The ascending thoracic aorta measures up to 4.6 cm in diameter, unchanged from prior CT chest dated 05/29/2025 when similarly remeasured. Dictated by: Kamran Joshi M.D. on 07/23/2025 at 0:26 Approved by: Kamran Joshi M.D. on 07/23/2025 at 0:33
--- NOTE | 2025-07-22 22:36 | ED.CHESTPAIN ---
HPI - Chest Pain General Chief Complaint: Chest Pain Stated Complaint: heart/chest px Time Seen by Provider: 07/22/25 22:34 Source: patient Mode of arrival: Ambulatory Related Data Home Medications ?Medication ?Instructions ?Recorded ?Confirmed metformin 500 mg tablet 500 mg PO BID 03/01/24 05/29/25 naltrexone 4.5 mg capsule 4.5 mg PO BEDTIME 03/01/24 05/29/25 rosuvastatin 10 mg tablet 10 mg PO ONCE PM 03/01/24 05/29/25 apixaban 5 mg tablet (Eliquis) 5 mg PO BID 02/05/25 05/29/25 tadalafil 20 mg tablet 20 mg PO DAILY 02/05/25 05/29/25 vibegron 75 mg tablet (Gemtesa) 75 mg PO DAILY 02/05/25 05/29/25 pantoprazole 40 mg tablet,delayed 40 mg PO DAILY 03/31/25 05/29/25 release Allergies Allergy/AdvReac Type Severity Reaction Status Date / Time No Known Drug Allergies Allergy Verified 05/29/25 00:04 Patient History Medical History Atrial fibrillation Diabetes Cervical fusion syndrome Hypercholesteremia HTN (hypertension) GERD (gastroesophageal reflux disease) Surgical History H/O hernia repair S/P hip replacement Social History household members: spouse alcohol intake: former alcohol intake frequency: a few times a week Exam Initial Vital Signs Initial Vital Signs: Vital Signs Temperature 98 F 07/22/25 19:12 Pulse Rate 67 07/22/25 19:12 Respiratory Rate 16 07/22/25 19:12 Blood Pressure 168/80 H 07/22/25 19:12 Pulse Oximetry 97 07/22/25 19:12 Oxygen Delivery Method Room Air 07/22/25 19:12 Course Orders Ordered: ED Orders 07/22/25 19:17 XR chest 1V Stat EKG-12 Lead Stat 07/22/25 19:32 Complete Blood Count AUTO DIFF Stat Comprehensive Metabolic Panel Stat Lipase Stat Magnesium Stat NT-proBNP (BNP-Adult 18+) Stat PTT Partial Thromboplastin Gregory Stat Prothrombin Time INR Stat Troponin & CK Cardiac Panel Stat 07/22/25 21:50 Trop I [Troponin I] Stat Discontinued Medications Aspirin (Aspirin 81 Mg Chew Tab) 324 mg PO NOW ONE Stop: 07/22/25 19:18 Vital Signs Vital signs: Vital Signs - 8 hr 07/22/25 19:12 07/22/25 19:16 07/22/25 21:47 Temperature 98 F Pulse Rate 67 54 L Respiratory Rate 16 21 Blood Pressure 168/80 H 162/90 H Pulse Oximetry 97 Oxygen Delivery Method Room Air 07/22/25 21:49 07/22/25 21:49 07/22/25 21:54 Temperature Pulse Rate 55 L Respiratory Rate 18 Blood Pressure 145/86 H 139/80 Pulse Oximetry 96 Oxygen Delivery Method 07/22/25 21:54 07/22/25 22:00 07/22/25 22:00 Temperature Pulse Rate 56 L 56 L Respiratory Rate 20 21 Blood Pressure 140/88 Pulse Oximetry 95 95 Oxygen Delivery Method MDM - Chest Pain Lab Data 07/22/25 19:32 07/22/25 19:32 Labs: Lab Results 07/22/25 07/22/25 Range/Units 19:32 21:50 WBC 4.7 (4.5-11.0) X10^3/uL RBC 4.34 L (4.5-5.9) X10^6/uL Hgb 13.4 L (13.5-17.5) g/dL Hct 38.9 L (41-53) % MCV 89.8 (80-100) fL MCH 31.0 (26-34) PG MCHC 34.5 (30-36) % RDW 13.5 (11.6-14.8) % Plt Count 232 (150-400) X10^3/uL Neut % (Auto) 64.3 (50-75) % Lymph % (Auto) 19.3 L (25-40) % [place] % (Auto) 13.8 (3-14) % Eos % (Auto) 2.0 (2-4) % Baso % (Auto) 0.6 (0-2) % Neut # (Auto) 3000 (2076-6371) /uL Lymph # (Auto) 900 L (0880-5815) /uL [place] # (Auto) 600 (0-900) /uL Eos # (Auto) 100 (0-450) /uL Baso # (Auto) 0 (0-100) /uL PT 11.4 (9.4-12.5) SECONDS INR 1.0 (0.9-1.3) APTT 32 (25.1-36.5) SECONDS Sodium 132 L (137-145) mmol/L Potassium 4.1 (3.4-5.1) mmol/L Chloride 100 (98-107) mmol/L Carbon Dioxide 24 (22-32) mmol/L BUN 13 (9-20) mg/dL Creatinine 1.02 (0.66-1.25) mg/dL Estimated GFR > 60 (>60) mL/min BUN/Creatinine Ratio 12.7 (6-22) Glucose 98 (70-99) mg/dL Calcium 9.0 (8.4-10.2) mg/dL Magnesium 1.7 (1.6-2.3) mg/dL Total Bilirubin 0.3 (0.2-1.3) mg/dL AST 29 (17-59) IU/L ALT 22 (<50) IU/L Alkaline Phosphatase 49 (38-126) U/L Total Creatine Kinase 85 (55-170) U/L Troponin I < 0.012 < 0.012 (0.01-0.034) ng/mL NT-Pro-B Natriuret Pep 60 (<125) pg/mL Total Protein 7.2 (6.3-8.2) g/dL Albumin 4.4 (3.5-5.0) g/dL Globulin 2.8 (1.7-4.1) g/dL Albumin/Globulin Ratio 1.6 (1.0-2.8) Lipase 76 (23-300) U/L Discharge Plan Departure Prescriptions: No Action tadalafil 20 mg tablet 20 mg PO DAILY Eliquis 5 mg tablet 5 mg PO BID Gemtesa 75 mg tablet 75 mg PO DAILY metformin 500 mg tablet 500 mg PO BID rosuvastatin 10 mg tablet 10 mg PO ONCE PM naltrexone 4.5 mg Capsule 4.5 mg PO BEDTIME pantoprazole 40 mg tablet,delayed release (DR/EC) 40 mg PO DAILY Referrals: Domi Sloan MD [Primary Care Provider, Family Practice]
--- NOTE | 2025-07-22 22:37 | PC.NURSE ---
07/22/25 @ 2200: pt reports variance in BP readings at home between left and right arm (pt brought in BP data from home, copy placed in chart) this nurse did BP on L arm resulting 145/86 and R arm resulting 139/80
[2025-07-23] VITALS: PULSE 64; O2SAT 97
--- NOTE | 2025-07-23 00:17 | ED.CHESTPAIN ---
HPI - Chest Pain General Chief Complaint: Chest Pain Stated Complaint: heart/chest px Time Seen by Provider: 07/22/25 22:34 Source: patient Mode of arrival: Ambulatory History of Present Illness HPI narrative: Patient is 65-year-old male history of prostate cancer, GERD, atrial fibrillation takes Eliquis presenting today with chest pain and elevated blood pressure. He consistently has different blood pressures in both right and left arm. They have given me recordings over the last 1 month blood pressure is never higher than 145 and typically in both arms it is 130-120 but is different. Today sitting at rest watching TV he developed some chest pain that lasted for about 30 minutes they took his blood pressure it was elevated they talk to his supervisor coal handling who recommended he come into the ED. He also has a history of an aneurysm which according to is about 4.7-4.8 cm and has been stable. There followed by CVT. However it was recommended by cardiology to come to the ED for rule out. He had a ablation end of April. He reports he has been dizzy every single day since then. No significant changes in medications. He reports no new changes there. He is not actively having chest pain now he is not short of breath. No other symptoms. Related Data Home Medications ?Medication ?Instructions ?Recorded ?Confirmed metformin 500 mg tablet 500 mg PO BID 03/01/24 05/29/25 naltrexone 4.5 mg capsule 4.5 mg PO BEDTIME 03/01/24 05/29/25 rosuvastatin 10 mg tablet 10 mg PO ONCE PM 03/01/24 05/29/25 apixaban 5 mg tablet (Eliquis) 5 mg PO BID 02/05/25 05/29/25 tadalafil 20 mg tablet 20 mg PO DAILY 02/05/25 05/29/25 vibegron 75 mg tablet (Gemtesa) 75 mg PO DAILY 02/05/25 05/29/25 pantoprazole 40 mg tablet,delayed 40 mg PO DAILY 03/31/25 05/29/25 release Allergies Allergy/AdvReac Type Severity Reaction Status Date / Time No Known Drug Allergies Allergy Verified 05/29/25 00:04 Patient History Medical History Atrial fibrillation Diabetes Cervical fusion syndrome Hypercholesteremia HTN (hypertension) GERD (gastroesophageal reflux disease) Surgical History H/O hernia repair S/P hip replacement Social History household members: spouse alcohol intake: former alcohol intake frequency: a few times a week Exam Initial Vital Signs Initial Vital Signs: Vital Signs Temperature 98 F 07/22/25 19:12 Pulse Rate 67 07/22/25 19:12 Respiratory Rate 16 07/22/25 19:12 Blood Pressure 168/80 H 07/22/25 19:12 Pulse Oximetry 97 07/22/25 19:12 Oxygen Delivery Method Room Air 07/22/25 19:12 GENERAL: Alert pleasant well-appearing 65-year-old male and in no acute distress. HEENT: Head atraumatic,EOMI, pupils reactive, face symmetric, moist mucous membranes CARDIOVASCULAR: Regular rate and rhythm without murmurs, rubs or gallops. RESPIRATORY: Breath sounds equal bilaterally, no wheezes rales or rhonchi. ABDOMEN: Soft, nontender. Normoactive bowel sounds all 4 quadrants. No guarding or rebound. EXTREMITIES: Normal range of motion, no clubbing or edema. Neurovascularly intact NEUROLOGICAL: Alert and oriented x4.Normal gait and speech. Cranial nerves II through XII grossly intact. SKIN: Warm, dry, no laceration, no petechiae, no rashes or lesions. Course Orders Ordered: ED Orders 07/22/25 19:17 XR chest 1V Stat EKG-12 Lead Stat 07/22/25 19:32 Complete Blood Count AUTO DIFF Stat Comprehensive Metabolic Panel Stat Lipase Stat Magnesium Stat NT-proBNP (BNP-Adult 18+) Stat PTT Partial Thromboplastin Gregory Stat Prothrombin Time INR Stat Troponin & CK Cardiac Panel Stat 07/22/25 21:50 Trop I [Troponin I] Stat 07/22/25 22:36 CT angio chest abdomen pelvis Stat Discontinued Medications Aspirin (Aspirin 81 Mg Chew Tab) 324 mg PO NOW ONE Stop: 07/22/25 19:18 Last Admin: 07/22/25 23:56 Dose: Not Given Documented By: LINDA Vital Signs Vital signs: Vital Signs - 8 hr 07/22/25 19:12 07/22/25 19:16 07/22/25 21:47 Temperature 98 F Pulse Rate 67 54 L Respiratory Rate 16 21 Blood Pressure 168/80 H 162/90 H Pulse Oximetry 97 Oxygen Delivery Method Room Air 07/22/25 21:49 07/22/25 21:49 07/22/25 21:54 Temperature Pulse Rate 55 L Respiratory Rate 18 Blood Pressure 145/86 H 139/80 Pulse Oximetry 96 Oxygen Delivery Method 07/22/25 21:54 07/22/25 22:00 07/22/25 22:00 Temperature Pulse Rate 56 L 56 L Respiratory Rate 20 21 Blood Pressure 140/88 Pulse Oximetry 95 95 Oxygen Delivery Method 07/22/25 22:30 07/22/25 22:30 07/22/25 23:03 Temperature Pulse Rate 55 L 65 Respiratory Rate 18 Blood Pressure 126/83 Pulse Oximetry 95 97 Oxygen Delivery Method 07/22/25 23:30 07/22/25 23:58 07/22/25 23:58 Temperature Pulse Rate 59 L 75 Respiratory Rate 16 Blood Pressure 148/82 H Pulse Oximetry 95 96 Oxygen Delivery Method 07/23/25 00:00 07/23/25 00:28 07/23/25 00:28 Temperature Pulse Rate 64 58 L Respiratory Rate 24 Blood Pressure 163/90 H Pulse Oximetry 97 96 Oxygen Delivery Method 07/23/25 00:30 Temperature Pulse Rate 57 L Respiratory Rate 20 Blood Pressure Pulse Oximetry 96 Oxygen Delivery Method MDM - Chest Pain Lab Data 07/22/25 19:32 07/22/25 19:32 Labs: Lab Results 07/22/25 07/22/25 Range/Units 19:32 21:50 WBC 4.7 (4.5-11.0) X10^3/uL RBC 4.34 L (4.5-5.9) X10^6/uL Hgb 13.4 L (13.5-17.5) g/dL Hct 38.9 L (41-53) % MCV 89.8 (80-100) fL MCH 31.0 (26-34) PG MCHC 34.5 (30-36) % RDW 13.5 (11.6-14.8) % Plt Count 232 (150-400) X10^3/uL Neut % (Auto) 64.3 (50-75) % Lymph % (Auto) 19.3 L (25-40) % [place] % (Auto) 13.8 (3-14) % Eos % (Auto) 2.0 (2-4) % Baso % (Auto) 0.6 (0-2) % Neut # (Auto) 3000 (0278-2749) /uL Lymph # (Auto) 900 L (3994-3861) /uL [place] # (Auto) 600 (0-900) /uL Eos # (Auto) 100 (0-450) /uL Baso # (Auto) 0 (0-100) /uL PT 11.4 (9.4-12.5) SECONDS INR 1.0 (0.9-1.3) APTT 32 (25.1-36.5) SECONDS Sodium 132 L (137-145) mmol/L Potassium 4.1 (3.4-5.1) mmol/L Chloride 100 (98-107) mmol/L Carbon Dioxide 24 (22-32) mmol/L BUN 13 (9-20) mg/dL Creatinine 1.02 (0.66-1.25) mg/dL Estimated GFR > 60 (>60) mL/min BUN/Creatinine Ratio 12.7 (6-22) Glucose 98 (70-99) mg/dL Calcium 9.0 (8.4-10.2) mg/dL Magnesium 1.7 (1.6-2.3) mg/dL Total Bilirubin 0.3 (0.2-1.3) mg/dL AST 29 (17-59) IU/L ALT 22 (<50) IU/L Alkaline Phosphatase 49 (38-126) U/L Total Creatine Kinase 85 (55-170) U/L Troponin I < 0.012 < 0.012 (0.01-0.034) ng/mL NT-Pro-B Natriuret Pep 60 (<125) pg/mL Total Protein 7.2 (6.3-8.2) g/dL Albumin 4.4 (3.5-5.0) g/dL Globulin 2.8 (1.7-4.1) g/dL Albumin/Globulin Ratio 1.6 (1.0-2.8) Lipase 76 (23-300) U/L Imaging Data Chest x-ray: Radiologist's Impression: PROCEDURE: XR CHEST 1V INDICATIONS: Chest Pain TECHNIQUE: One view of the chest was acquired. COMPARISON: [facility], CR, XR CHEST 1V, 05/29/2025, 0:23. FINDINGS: Surgical changes and devices: None. Lungs and pleura: Lungs are clear. No pleural effusions or pneumothorax. Mediastinum: Mediastinal contours appear normal. Heart size is normal. Bones and chest wall: No suspicious bony lesions. Overlying soft tissues appear unremarkable. IMPRESSION: No acute pulmonary process. Dictated by: Gaviota Dai M.D. on 07/22/2025 at 20:02 CT scan - chest: Radiologist's Impression: PROCEDURE: CT ANGIO CHEST ABDOMEN PELVIS INDICATIONS: chest pain, known hx aortic aneurysm TECHNIQUE: Precontrast 5 mm thick sections acquired from the lung apices to the iliac crests. After the administration of intravenous contrast, 2.5 mm thick sections again acquired from the lung apices to the iliac crests. Maximum intensity projection (MIP) oblique sagittal and coronal reformats were then acquired. For radiation dose reduction, the following was used: automated exposure control. COMPARISON: None. FINDINGS: Image quality: Diagnostic. AORTA: The ascending thoracic aorta measures up to 4.6 cm in diameter, unchanged from prior dated 05/29/2025, when similarly remeasured. No acute aortic syndrome. CHEST: Lower Neck: No enlarged lymph nodes. Thyroid: No thyroid nodules which require sonographic evaluation. Axillae: No enlarged lymph nodes. Chest Wall: Unremarkable. Lungs and Pleura: No pneumothorax or pleural effusions. No consolidation or suspicious nodules. Heart: Heart size is normal. No pericardial effusion. Thoracic Vessels: Pulmonary arteries demonstrate normal size. Mediastinum and [place]: No enlarged lymph nodes. Esophagus: No wall thickening. No hiatal hernia. ABDOMEN: Liver: No solid mass. Small cysts and additional subcentimeter hypodensities too small to fully characterize. Gallbladder: No radiopaque gallstones or wall thickening. Biliary ducts: No biliary dilation. Pancreas: No ductal dilation. Spleen: Size is within normal limits. Adrenal Glands: No adrenal nodules. Kidneys and Ureters: No hydronephrosis. No solid mass. No complex renal cystic lesion which requires follow up. Stomach and Bowel: Normal colonic caliber, without significant wall thickening. Normal appendix. Peritoneum: No abnormal intraperitoneal fluid. No free air. Ventral Wall: No hernia. Abdominal Nodes: No retroperitoneal or mesenteric adenopathy by size criteria. Vessels: Inferior vena cava is normal in size. PELVIS: Pelvic Organs: Unremarkable. Bladder: Unremarkable. Pelvic Nodes: No enlarged lymph nodes. Miscellaneous: Containing inguinal hernias. Bones: Bilateral hip arthroplasty hardware. Degenerative changes of the spine. No aggressive osseous lesion. IMPRESSION: No acute abnormality is seen in the chest, abdomen or pelvis. No acute aortic syndrome. The ascending thoracic aorta measures up to 4.6 cm in diameter, unchanged from prior CT chest dated 05/29/2025 when similarly remeasured. Dictated by: Kamran Joshi M.D. on 07/23/2025 at 0:26 ECG Data Attestation: I personally reviewed and interpreted this ECG as follows: Prior ECG tracings: available for review Interpretation: Normal sinus rhythm rate 61 AL interval 160 QRS [address] changes no T-wave inversions MDM Narrative Medical decision making narrative: MDM CC: Chest pain elevated blood pressure Complicating co-morbidities: Known thoracic aneurysm 4.7 cm 05/29/2025 Data collected from: Patient and Medical records reviewed: He has previous ED records for chest pain and imaging studies such as a CT angio on 05/29/2025 Differential considered: Hypertensive urgency, hypertensive emergency, acute coronary syndrome, aortic dissection, aneurysm Exam documented above, pertinent findings include: Alert well-appearing 65-year-old male chest pain is not reproducible breath sounds are clear no peripheral Lab Test results independently reviewed as above. Pertinent findings: Troponin negative x2 CBC no leukocytosis or anemia CMP no electrolyte abnormality no SIMON glucose 90 Bilirubin liver enzymes within normal limits Independently reviewed EKG as above Sinus rhythm no ischemia Imaging studies independently reviewed: Chest x-ray no acute cardiopulmonary process CT angio chest/ab/pelvis Consultations: [ ] Treatments: None Re-evaluations: [ ] Discussion: Alert 65-year-old male history of atrial fibrillation but currently in sinus rhythm presenting to day with chest pain and elevated blood pressure. The highest today is 168/80 in the emergency department he has had 1 of 126/83. The right does seem to be slightly lower than the left this is chronic for him. He has a known stable aneurysm of 4.7 cm again confirmed today. Without rupture evidence of dissection. 2- troponins. Not actively having chest pain. At this time recommend he follow up with his supervisor coal handling in regards to blood pressure control. No further recommendations or workup needed in the emergency department. Discharge Plan Departure Patient Disposition: Home Clinical Impression: Aneurysm of thoracic aorta, Atypical chest pain Instructions: Aortic Aneurysm, DI for Atypical Chest Pain Activity Restrictions/Additional Instructions: *You have been diagnosed with atypical chest *What to do: At this time your aneurysm appears stable it is measured at 4.6 cm, there can be small amount of variation between measurements but overall this is not considered significant change Blood work today is overall reassuring Please continue to check blood pressure daily Follow up with your supervisor coal handling during regards to blood pressure control and changes in medication *Continue to take medications as directed *Follow up with your primary care provider in 2-3 days or call [phone] Call your supervisor coal handling tomorrow to schedule follow-up appoint *Return to ER if you should have increasing chest pain shortness of breath weakness or any new, worsening or concerning symptoms Prescriptions: No Action tadalafil 20 mg tablet 20 mg PO DAILY Eliquis 5 mg tablet 5 mg PO BID Gemtesa 75 mg tablet 75 mg PO DAILY metformin 500 mg tablet 500 mg PO BID rosuvastatin 10 mg tablet 10 mg PO ONCE PM naltrexone 4.5 mg Capsule 4.5 mg PO BEDTIME pantoprazole 40 mg tablet,delayed release (DR/EC) 40 mg PO DAILY Referrals: Domi Sloan MD [Primary Care Provider, Family Practice] Stand Alone Forms: Patient Portal/API
[2025-07-23 00:28] VITALS: BP 163/90; PULSE 58; RESP 24; O2SAT 96
[2025-07-23 00:30] VITALS: PULSE 57; RESP 20; O2SAT 96
== END 2025-07-23 01:00 | disposition home or self-care (01) ==
PROVIDERS: Emergency Medicine; Emergency Provider Emergency Medicine; PCP Family Medicine
DX: I71.21 Aneurysm of the ascending aorta, without rupture (principal); R07.89 Other chest pain; I10 Essential (primary) hypertension; I48.91 Unspecified atrial fibrillation; Z79.01 Long term (current) use of anticoagulants
CPT/HCPCS: 71045; 71275; 74174; 80053; 82550; 83690; 83735; 83880; 84484; 85025; 85610; 85730; 93005; 99283; 99284; Q9967